=== PATIENT | female | born 1935 | race Caucasian/White ===

== ENCOUNTER 2017-04-28 10:07 | Inpatient (IN) | payer MEDICARE ==
[2017-04-28] MEDS ORDERED: SODIUM CHLORIDE 0.9% 1,000 ML IV STA ×3 (10:16→12:55)
[2017-04-28] MEDS ORDERED: SODIUM CHLORIDE 0.9% 500 ML IV STA (10:16)
--- NOTE | 2017-04-28 10:21 | ED ---
General Adult HPI - General Chief complaint: Abdominal Pain Stated complaint: altered mental Time Seen by Provider: 04/28/17 10:16 Source: patient, EMS, RN notes reviewed, old records reviewed Mode of arrival: EMS Limitations: altered mental status - History of Present Illness Initial comments: This is a 81-year-old female the ER for evaluation. Patient is a poor historian. History obtained from family. Patient's room by EMS and she also obtained from EMS. Patient was found down today. Week and not feeling well. Per EMS initially blood pressure was low and patient had decreased level of responsiveness. Patient this point is complaining of abdominal pain severe - Related Data Home Medications Medication Instructions Recorded Confirmed Aspirin 81 mg PO DAILY 04/28/17 04/28/17 Atorvastatin [Lipitor] 20 mg PO HS 04/28/17 04/28/17 Clopidogrel [Plavix] 75 mg PO DAILY 04/28/17 04/28/17 Lisinopril-Hctz 20-12.5 mg 1 tab PO DAILY 04/28/17 04/28/17 [Zestoretic 20-12.5] Metoprolol Tartrate [Lopressor] 50 mg PO BID 04/28/17 04/28/17 Multivitamins, Thera [Multivitamin 1 tab PO DAILY 04/28/17 04/28/17 (formulary)] Allergies Allergy/AdvReac Type Severity Reaction Status Date / Time Penicillins Allergy Rash/Hives Verified 04/28/17 11:06 Review of Systems ROS Statement: Those systems with pertinent positive or pertinent negative responses have been documented in the HPI. ROS Other: All systems not noted in ROS Statement are negative. Past Medical History Past Medical History: CVA/TIA, Hyperlipidemia, Hypertension Additional Past Medical History / Comment(s): bowle obstruction History of Any Multi-Drug Resistant Organisms: MRSA Date of last positivie culture/infection: unable to recall MDRO Source:: right leg Past Surgical History: Adenoidectomy, Appendectomy, Cholecystectomy, Heart Catheterization With Stent, Hysterectomy, Joint Replacement, Tonsillectomy Additional Past Surgical History / Comment(s): bilateral knees Past Psychological History: No Psychological Hx Reported Smoking Status: Never smoker Past Alcohol Use History: Rare Past Drug Use History: None Reported General Exam Limitations: altered mental status General appearance: alert, in no apparent distress, anxious, in distress Head exam: Present: atraumatic, normocephalic, normal inspection Eye exam: Present: normal appearance, PERRL, EOMI. Absent: scleral icterus, conjunctival injection, periorbital swelling ENT exam: Present: normal exam, mucous membranes moist Neck exam: Present: normal inspection. Absent: tenderness, meningismus, lymphadenopathy Respiratory exam: Present: normal lung sounds bilaterally. Absent: respiratory distress, wheezes, rales, rhonchi, stridor Cardiovascular Exam: Present: regular rate, normal rhythm, normal heart sounds. Absent: systolic murmur, diastolic murmur, rubs, gallop, clicks GI/Abdominal exam: Present: distended, tenderness, guarding, normal bowel sounds. Absent: rebound, rigid Extremities exam: Present: normal inspection, full ROM, normal capillary refill. Absent: tenderness, pedal edema, joint swelling, calf tenderness Back exam: Present: normal inspection Neurological exam: Present: alert, oriented X3, CN II-XII intact Psychiatric exam: Present: normal affect, normal mood Skin exam: Present: warm, dry, intact, normal color. Absent: rash Course Vital Signs 04/28/17 04/28/17 04/28/17 10:12 11:07 12:27 Temperature 97.0 F L 98.2 F Pulse Rate 96 92 98 Respiratory 18 15 16 Rate Blood Pressure 130/71 157/63 94/64 O2 Sat by Pulse 99 96 97 Oximetry EKG Findings - EKG Comments: EKG Findings:: EKG shows normal sinus rhythm rate of 91, FL 150, QRS 76, QTc 442 Medical Decision Making - Medical Decision Making Anyone female in the ER severe weakness severe pain, severe dissension likely small bowel obstruction and colitis. Patient be admitted for surgical evaluation and treatment, and by mouth IV hydration, IV antibiotics secondary to severe dehydration possible septic picture - Lab Data Result diagrams: 04/28/17 10:38 04/28/17 10:38 Lab Results 04/28/17 04/28/17 04/28/17 Range/Units 10:26 10:38 10:38 WBC 31.3 H* (3.8-10.6) k/uL RBC 5.52 H (3.80-5.40) m/uL Hgb 17.0 H (11.4-16.0) gm/dL Hct 52.1 H (34.0-46.0) % MCV 94.4 (80.0-100.0) fL MCH 30.7 (25.0-35.0) pg MCHC 32.5 (31.0-37.0) g/dL RDW 13.7 (11.5-15.5) % Plt Count 354 (150-450) k/uL Neutrophils % (Manual) 60 % Band Neutrophils % 29 % Lymphocytes % (Manual) 6 % Monocytes % (Manual) 3 % Metamyelocytes % 4 % Myelocytes % 1 % Neutrophils # (Manual) 27.80 H (1.3-7.7) k/uL Lymphocytes # (Manual) 1.88 (1.0-4.8) k/uL Monocytes # (Manual) 0.94 (0-1.0) k/uL Metamyelocytes # (Man) 1.25 H (0) k/uL Myelocytes # (Manual) 0.31 H (0) k/uL Nucleated RBCs 0 (0-0) /100 WBC Manual Slide Review Performed Toxic Granulation Present Poikilocytosis (manual Present PT 17.6 H (9.0-12.0) sec INR 1.8 H (<1.2) APTT 35.8 H (22.0-30.0) sec Sodium (137-145) mmol/L Potassium (3.5-5.1) mmol/L Chloride (98-107) mmol/L Carbon Dioxide (22-30) mmol/L Anion Gap mmol/L BUN (7-17) mg/dL Creatinine (0.52-1.04) mg/dL Est GFR (MDRD) Af Amer (>60 ml/min/1.73 sqM) Est GFR (MDRD) Non-Af (>60 ml/min/1.73 sqM) Glucose (74-99) mg/dL POC Glucose (mg/dL) 124 H (75-99) mg/dL POC Glu Refurbish Technician ID McDaid, Aleyda Plasma Lactic Acid Davi (0.7-2.0) mmol/L Calcium (8.4-10.2) mg/dL Phosphorus (2.5-4.5) mg/dL Magnesium (1.6-2.3) mg/dL Total Bilirubin (0.2-1.3) mg/dL AST (14-36) U/L ALT (9-52) U/L Alkaline Phosphatase (38-126) U/L Total Creatine Kinase (30-135) U/L CK-MB (CK-2) (0.0-2.4) ng/mL CK-MB (CK-2) Rel Index Troponin I (0.000-0.034) ng/mL Total Protein (6.3-8.2) g/dL Albumin (3.5-5.0) g/dL TSH (0.465-4.680) mIU/L Urine Color Urine Appearance (Clear) Urine pH (5.0-8.0) Ur Specific [place] (1.001-1.035) Urine Protein (Negative) Urine Glucose (UA) (Negative) Urine Ketones (Negative) Urine Blood (Negative) Urine Nitrite (Negative) Urine Bilirubin (Negative) Urine Urobilinogen (<2.0) mg/dL Ur Leukocyte Esterase (Negative) Urine RBC (0-5) /hpf Urine WBC (0-5) /hpf Ur Squamous Epith Cells (0-4) /hpf 04/28/17 04/28/17 04/28/17 Range/Units 10:38 10:38 10:38 WBC (3.8-10.6) k/uL RBC (3.80-5.40) m/uL Hgb (11.4-16.0) gm/dL Hct (34.0-46.0) % MCV (80.0-100.0) fL MCH (25.0-35.0) pg MCHC (31.0-37.0) g/dL RDW (11.5-15.5) % Plt Count (150-450) k/uL Neutrophils % (Manual) % Band Neutrophils % % Lymphocytes % (Manual) % Monocytes % (Manual) % Metamyelocytes % % Myelocytes % % Neutrophils # (Manual) (1.3-7.7) k/uL Lymphocytes # (Manual) (1.0-4.8) k/uL Monocytes # (Manual) (0-1.0) k/uL Metamyelocytes # (Man) (0) k/uL Myelocytes # (Manual) (0) k/uL Nucleated RBCs (0-0) /100 WBC Manual Slide Review Toxic Granulation Poikilocytosis (manual PT (9.0-12.0) sec INR (<1.2) APTT (22.0-30.0) sec Sodium 138 (137-145) mmol/L Potassium 3.7 (3.5-5.1) mmol/L Chloride 108 H (98-107) mmol/L Carbon Dioxide 16 L (22-30) mmol/L Anion Gap 14 mmol/L BUN 35 H (7-17) mg/dL Creatinine 2.67 H (0.52-1.04) mg/dL Est GFR (MDRD) Af Amer 21 (>60 ml/min/1.73 sqM) Est GFR (MDRD) Non-Af 17 (>60 ml/min/1.73 sqM) Glucose 106 H (74-99) mg/dL POC Glucose (mg/dL) (75-99) mg/dL POC Glu Refurbish Technician ID Plasma Lactic Acid Davi 8.7 H* (0.7-2.0) mmol/L Calcium 8.1 L (8.4-10.2) mg/dL Phosphorus 4.8 H (2.5-4.5) mg/dL Magnesium 2.1 (1.6-2.3) mg/dL Total Bilirubin 0.5 (0.2-1.3) mg/dL AST 28 (14-36) U/L ALT 28 (9-52) U/L Alkaline Phosphatase 59 (38-126) U/L Total Creatine Kinase 94 (30-135) U/L CK-MB (CK-2) 5.1 H* (0.0-2.4) ng/mL CK-MB (CK-2) Rel Index 5.4 Troponin I 0.201 H* (0.000-0.034) ng/mL Total Protein 4.5 L (6.3-8.2) g/dL Albumin 2.5 L (3.5-5.0) g/dL TSH 8.280 H (0.465-4.680) mIU/L Urine Color Urine Appearance (Clear) Urine pH (5.0-8.0) Ur Specific [place] (1.001-1.035) Urine Protein (Negative) Urine Glucose (UA) (Negative) Urine Ketones (Negative) Urine Blood (Negative) Urine Nitrite (Negative) Urine Bilirubin (Negative) Urine Urobilinogen (<2.0) mg/dL Ur Leukocyte Esterase (Negative) Urine RBC (0-5) /hpf Urine WBC (0-5) /hpf Ur Squamous Epith Cells (0-4) /hpf 04/28/17 Range/Units 10:40 WBC (3.8-10.6) k/uL RBC (3.80-5.40) m/uL Hgb (11.4-16.0) gm/dL Hct (34.0-46.0) % MCV (80.0-100.0) fL MCH (25.0-35.0) pg MCHC (31.0-37.0) g/dL RDW (11.5-15.5) % Plt Count (150-450) k/uL Neutrophils % (Manual) % Band Neutrophils % % Lymphocytes % (Manual) % Monocytes % (Manual) % Metamyelocytes % % Myelocytes % % Neutrophils # (Manual) (1.3-7.7) k/uL Lymphocytes # (Manual) (1.0-4.8) k/uL Monocytes # (Manual) (0-1.0) k/uL Metamyelocytes # (Man) (0) k/uL Myelocytes # (Manual) (0) k/uL Nucleated RBCs (0-0) /100 WBC Manual Slide Review Toxic Granulation Poikilocytosis (manual PT (9.0-12.0) sec INR (<1.2) APTT (22.0-30.0) sec Sodium (137-145) mmol/L Potassium (3.5-5.1) mmol/L Chloride (98-107) mmol/L Carbon Dioxide (22-30) mmol/L Anion Gap mmol/L BUN (7-17) mg/dL Creatinine (0.52-1.04) mg/dL Est GFR (MDRD) Af Amer (>60 ml/min/1.73 sqM) Est GFR (MDRD) Non-Af (>60 ml/min/1.73 sqM) Glucose (74-99) mg/dL POC Glucose (mg/dL) (75-99) mg/dL POC Glu Refurbish Technician ID Plasma Lactic Acid Davi (0.7-2.0) mmol/L Calcium (8.4-10.2) mg/dL Phosphorus (2.5-4.5) mg/dL Magnesium (1.6-2.3) mg/dL Total Bilirubin (0.2-1.3) mg/dL AST (14-36) U/L ALT (9-52) U/L Alkaline Phosphatase (38-126) U/L Total Creatine Kinase (30-135) U/L CK-MB (CK-2) (0.0-2.4) ng/mL CK-MB (CK-2) Rel Index Troponin I (0.000-0.034) ng/mL Total Protein (6.3-8.2) g/dL Albumin (3.5-5.0) g/dL TSH (0.465-4.680) mIU/L Urine Color Yellow Urine Appearance Clear (Clear) Urine pH 6.0 (5.0-8.0) Ur Specific [place] 1.013 (1.001-1.035) Urine Protein 1+ H (Negative) Urine Glucose (UA) Negative (Negative) Urine Ketones Negative (Negative) Urine Blood Negative (Negative) Urine Nitrite Negative (Negative) Urine Bilirubin Negative (Negative) Urine Urobilinogen <2.0 (<2.0) mg/dL Ur Leukocyte Esterase Negative (Negative) Urine RBC 1 (0-5) /hpf Urine WBC <1 (0-5) /hpf Ur Squamous Epith Cells 1 (0-4) /hpf - Radiology Data Radiology results: report reviewed (CT pelvis shows likely colitis small bowel obstruction), image reviewed Disposition Clinical Impression: Abdominal pain, Constipation, Colitis, SBO (small bowel obstruction), SIRS ( systemic inflammatory response syndrome) Disposition: ADMITTED IP TO THIS [facility] Condition: Critical Referrals: Adair Key MD [Primary Care Provider] - 1-2 days
[2017-04-28 10:27] LABS: Glucose,Whole Blood 124 mg/dL (75-99)
[2017-04-28 10:53] LABS: Appearance,Urine Clear (Clear); Bilirubin,Urine Negative (Negative); Glucose,Urine (UA) Negative (Negative); Ketones,Urine Negative (Negative); Leukocyte Esterase,Urine Negative (Negative); Nitrite,Urine Negative (Negative); Particle Count 2589; Protein,Urine 1+ (Negative); RBC,Urine 1 /hpf (0-5); Specific Gravity,Urine 1.013 (1.001-1.035); Squamous Epithelial Cell,Urine 1 /hpf (0-4); UA Billing (MACRO vs. MICRO) MICRO; Urobilinogen,Urine <2.0 mg/dL (<2.0); WBC,Urine <1 /hpf (0-5)
[2017-04-28 11:05] LABS: CH 29.9; CHCM 31.8; HCT 52.1 % (34.0-46.0); HDW 2.47; Immature Gran Flag Marked; MCH 30.7 pg (25.0-35.0); MCHC 32.5 g/dL (31.0-37.0); MCV 94.4 fL (80.0-100.0); Mean Platelet Volume 7.3; RBC 5.52 m/uL (3.80-5.40); RDW 13.7 % (11.5-15.5)
[2017-04-28] MEDS ORDERED: DICYCLOMINE 10 MG/ML 2 ML AMP IM STA (11:10)
[2017-04-28] MEDS ORDERED: MORPHINE SULFATE 4 MG/ML SYRINGE IVP STA ×2 (11:10→12:55)
[2017-04-28 11:12] LABS: WBC 31.3 k/uL (3.8-10.6)
[2017-04-28 11:13] LABS: INR 1.8 (<1.2); Partial Thromboplastin Time 35.8 sec (22.0-30.0); Prothrombin Time 17.6 sec (9.0-12.0)
[2017-04-28] MEDS ORDERED: RX INFO: IV CONTRAST WAS GIVEN 1 EACH MISC MISCELLANE PRN (11:13)
[2017-04-28 11:17] LABS: Calcium 8.1 mg/dL (8.4-10.2); Magnesium 2.1 mg/dL (1.6-2.3); Phosphorous 4.8 mg/dL (2.5-4.5); Potassium 3.7 mmol/L (3.5-5.1); Total Bilirubin 0.5 mg/dL (0.2-1.3); Total Protein 4.5 g/dL (6.3-8.2)
[2017-04-28 11:36] LABS: Add Differential Manual Differential
[2017-04-28 11:39] LABS: Band Neutrophils % 29 %; Manual Review Performed; Metamyelocytes % 4 %; Myelocytes % 1 %; Nucleated Red Blood Cells 0 /100 WBC (0-0); Total Cells Counted 200
[2017-04-28 11:40] LABS: Toxic Granulation Present
[2017-04-28 11:58] LABS: Creatine Kinase MB 5.1 ng/mL (0.0-2.4); Troponin I 0.201 ng/mL (0.000-0.034)
--- NOTE | 2017-04-28 12:53 | CT ---
EXAMINATION TYPE: CT abdomen pelvis wo con DATE OF EXAM: 04/28/2017 HISTORY: impacted CT DLP: 881 mGycm. Automated Exposure Control for Dose Reduction was Utilized. TECHNIQUE: CT scan of the abdomen and pelvis is performed without oral or IV contrast. COMPARISON: CT chest abdomen and pelvis May 13, 2008 FINDINGS: Within the limitations of a non-contrast study, the following observations are made. LUNG BASES: Dependent atelectasis is seen in both lung bases. There is tiny right-sided pleural effus ion. There is coronary artery calcification and/or coronary stent in the RCA noted. LIVER/GB: A few subcentimeter low dense lesions scattered throughout the upper liver are too small to further characterize per presumed benign. Gallbladder is not seen with certainty and may be surgical ly absent. PANCREAS: Pancreatic duct is redemonstrated in the mid body but not suspiciously dilated. SPLEEN: No significant abnormality is seen. ADRENALS: No significant abnormality is seen. KIDNEYS: No renal stones or hydronephrosis is evident. BOWEL: Evaluation of bowel is suboptimal secondary to lack of enteric contrast as well as patient hav ing very little intra-abdominal fat. Small hiatal hernia with air-fluid level is present. There is fl uid-filled distended stomach. Duodenal sweep is not well-visualized. There are dilated fluid-filled small bowel loops throughout the abdomen with several air-fluid levels present. Working backwards there is nondistended distal sigmoid and rectal colon. There is prominence of fecal material with diverticula in the proximal to mid sigmoid colon. There is moderate to severe wall thi ckening with scattered diverticula in the left colon. Surrounding ill-defined fluid and fat stranding is present. There is prominence of fecal material in the transverse colon without suspicious wall thickening. Cec um is not well visualized but felt wandering into the anterior upper pelvis seen best on axial image 77. Terminal ileum is not definitively visualized. There is redundant transverse colon noted. Small bowel loops in the right lower quadrant are fluid-filled and prominent but not suspiciously dil ated. There is abnormal small bowel loops in the upper quadrant with abnormal wall thickening near po rta hepatis. GENITAL ORGANS: Uterus is not visualized and may be surgically absent or markedly atrophic in appeara nce. LYMPH NODES: No greater than 1cm abdominal or pelvic lymph nodes are appreciated. OSSEOUS STRUCTURES: There is prominent multilevel spurring in visualized thoracic spine. There is fac et arthropathy in lower lumbar levels. OTHER: There is severe calcified plaque of aorta extending into branch vessels. Suspect remnant 3.2 c m low dense lesion in right ovary on axial image 72. This is larger in size versus prior study axial image 108. There is small amount of fluid surrounding the liver along the anterior and lateral aspect. There is small amount of fluid in the left paracolic gutter. IMPRESSION: 1. Suboptimal study. There is definite moderate to severe colitis involving the left colon. There is definite enteritis involving small bowel loops in the right upper to mid abdomen. Differential includ es infectious, inflammatory, and ischemic etiologies. A partial or developing mid to distal small bow el obstruction cannot be excluded. Distended stomach is noted, advise NG tube placement. Fairly moder ate diffuse colonic fecal stasis noted. Wandering cecum suspected. 2. A 3.2 cm right adnexal or ovarian cystic lesion is abnormal finding in postmenopausal female, none mergent pelvic ultrasound follow-up is advised to further evaluate and characterize.
[2017-04-28] MEDS ORDERED: ONDANSETRON 4 MG/2 ML VIAL IVP STA (12:55)
[2017-04-28] MEDS ORDERED: ONDANSETRON 4 MG/2 ML VIAL IVP PRN (12:55)
[2017-04-28] MEDS ORDERED: metroNIDAZOLE-NS PMX 500 MG in SALINE 1 100ML.BAG IVPB STA (12:56)
[2017-04-28] MEDS ORDERED: LEVOFLOXACIN 750MG-D5W PMX 750 MG in DEXTROSE/WATER 1 150ML.BAG IVPB STA (12:56)
[2017-04-28] MEDS ORDERED: NALOXONE 0.4 MG/ML 1 ML VIAL IV PRN (12:58)
[2017-04-28] MEDS ORDERED: PHYTONADIONE 5 MG in SODIUM CHLORIDE 0.9% 50 ML IVPB STA (14:00)
--- NOTE | 2017-04-28 15:58 | P.CNPUL ---
History of Present Illness Consult date: 04/28/17 Requesting physician: Archana White Reason for consult: other (Critical care management) Chief complaint: Abdominal pain, altered mental status History of present illness: This is a very pleasant 81-year-old female patient who follows with Dr. Ministerio Key as her primary care physician. 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 He presented to the emergency room this morning after her found her quite weak and lethargic and confused. He states yesterday she appeared fine however he had to leave the house for several hours and upon his return at 7:30 PM she was already in bed. He asked if she was okay she stated she just wanted to rest. He did feel she had not been eating and drinking much the last several days. Early this morning she became quite confused and lethargic, complaining of severe abdominal discomfort and EMS was called. Her initial labs reveal a white count of 31.3, hemoglobin 17.0, neutrophils 27.8, metamyelocytes 1.25, myelocytes 0.31. Her INR was 1.8. BUN 35 with a creatinine of 2.67. Her lactic acid is 8.7. Troponin 0.201. A computed tomography scan of the abdomen and pelvis revealed moderate to severe colitis involving the left colon. There is enteritis involving small bowel loops in the right upper to mid abdomen. Infectious, inflammatory and ischemic etiologies are within the differential. There is a partial or developing mid to distal small bowel obstruction. Her stomach is distended. There is a fair amount of colonic fecal stasis noted as well. Wondering cecum expected. She has been a initiated on Levaquin and metronidazole. 3 L of 0.9 normal saline have been infused. She currently has a 0.9 normal saline at 100 MLS. She is seen today in the emergency room. She is awake. She is slow to respond. A poor historian. She is maintaining O2 saturations in the upper 90s on 2 L/m per nasal cannula. She is currently afebrile. Hemodynamically stable with improved blood pressure post fluid resuscitation. Review of Systems ROS unobtainable: due to mental status Past Medical History Past Medical History: Coronary Artery Disease (CAD) (Previous stent placement 3.), CVA/TIA, Hyperlipidemia, Hypertension History of Any Multi-Drug Resistant Organisms: MRSA Date of last positivie culture/infection: unable to recall MDRO Source:: right leg Past Surgical History: Adenoidectomy, Appendectomy, Cholecystectomy, Heart Catheterization With Stent, Hysterectomy, Joint Replacement, Tonsillectomy Additional Past Surgical History / Comment(s): bilateral knees Past Psychological History: No Psychological Hx Reported Smoking Status: Never smoker Past Alcohol Use History: Rare Past Drug Use History: None Reported Medications and Allergies Home Medications Medication Instructions Recorded Confirmed Type Aspirin 81 mg PO DAILY 04/28/17 04/28/17 History Atorvastatin [Lipitor] 20 mg PO HS 04/28/17 04/28/17 History Clopidogrel [Plavix] 75 mg PO DAILY 04/28/17 04/28/17 History Lisinopril-Hctz 20-12.5 mg 1 tab PO DAILY 04/28/17 04/28/17 History [Zestoretic 20-12.5] Metoprolol Tartrate [Lopressor] 50 mg PO BID 04/28/17 04/28/17 History Multivitamins, Thera [Multivitamin 1 tab PO DAILY 04/28/17 04/28/17 History (formulary)] Allergies Allergy/AdvReac Type Severity Reaction Status Date / Time Penicillins Allergy Rash/Hives Verified 04/28/17 11:06 Physical Exam Vitals: Vital Signs Temp Pulse Resp BP Pulse Ox 04/28/17 14:49 105/51 04/28/17 14:27 106 H 86/47 94 L 04/28/17 14:00 85/50 04/28/17 12:58 98.2 F 100 20 98/62 94 L 04/28/17 12:27 98 16 94/64 97 04/28/17 11:07 98.2 F 92 15 157/63 96 04/28/17 10:12 97.0 F L 96 18 130/71 99 Intake and Output 04/28/17 04/28/17 04/28/17 06:59 14:59 22:59 Other: Weight 49.895 kg Patient Weight 04/29/17 06:59 Weight 49.895 kg GENERAL EXAM: Lethargic, profoundly weak. Altered mental status. HEAD: Normocephalic. EYES: Normal reaction of pupils, equal size. NOSE: Clear with pink turbinates. THROAT: No erythema or exudates. NECK: No masses, no JVD. CHEST: No chest wall deformity. LUNGS: Equal air entry with no crackles, wheeze, rhonchi or dullness. CVS: S1 and S2 normal with no audible murmurs, regular rhythm. ABDOMEN: Slightly distended, tender to palpation, hyperactive bowel sounds. Extremities: There is no peripheral edema. No clubbing, no cyanosis. Peripheral pulses are intact. Results - Laboratory Findings CBC and BMP: 04/28/17 10:38 04/28/17 10:38 PT/INR, D-dimer PT 17.6 sec (9.0-12.0) H 04/28/17 10:38 INR 1.8 (<1.2) H 04/28/17 10:38 Abnormal lab findings: Abnormal Labs 04/28/17 04/28/17 04/28/17 10:26 10:38 10:38 WBC 31.3 H* RBC 5.52 H Hgb 17.0 H Hct 52.1 H Neutrophils # (Manual) 27.80 H Metamyelocytes # (Man) 1.25 H Myelocytes # (Manual) 0.31 H PT 17.6 H INR 1.8 H APTT 35.8 H Chloride Carbon Dioxide BUN Creatinine Glucose POC Glucose (mg/dL) 124 H Plasma Lactic Acid Davi Calcium Phosphorus CK-MB (CK-2) Troponin I Total Protein Albumin TSH Urine Protein 04/28/17 04/28/17 04/28/17 10:38 10:38 10:38 WBC RBC Hgb Hct Neutrophils # (Manual) Metamyelocytes # (Man) Myelocytes # (Manual) PT INR APTT Chloride 108 H Carbon Dioxide 16 L BUN 35 H Creatinine 2.67 H Glucose 106 H POC Glucose (mg/dL) Plasma Lactic Acid Davi 8.7 H* Calcium 8.1 L Phosphorus 4.8 H CK-MB (CK-2) 5.1 H* Troponin I 0.201 H* Total Protein 4.5 L Albumin 2.5 L TSH 8.280 H Urine Protein 04/28/17 10:40 WBC RBC Hgb Hct Neutrophils # (Manual) Metamyelocytes # (Man) Myelocytes # (Manual) PT INR APTT Chloride Carbon Dioxide BUN Creatinine Glucose POC Glucose (mg/dL) Plasma Lactic Acid Davi Calcium Phosphorus CK-MB (CK-2) Troponin I Total Protein Albumin TSH Urine Protein 1+ H Assessment and Plan Plan: Impression: #1 Severe sepsis secondary to moderate to severe colitis involving the left colon along with enteritis involving the small bowels in the right upper to mid abdomen. #2 Septic shock with hypotension secondary to above, slightly improved with fluid resuscitation. Currently not on pressors. #3 Partial or developing mid to distal small bowel obstruction with distended stomach and diffuse colonic fecal stasis. #4 Leukocytosis with bandemia secondary to above. #5 Lactic acidosis secondary to above. #6 Acute renal failure secondary to sepsis, hypotension and dehydration. #7 Coagulopathy secondary to sepsis, INR 1.8. #8 Troponin leak. #9 History of hypertension. #10 Hyperlipidemia. #11 Coronary artery disease status post coronary stent placement 3. Currently on Plavix and aspirin. #12 History of CVA/TIA. Plan: The patient was seen and evaluated by Dr. Trent. We will plan to transfer the patient to the intensive care unit. We'll continue with fluid resuscitation. She may need pressors. Continue with antibiotics. Obtain blood cultures. We' ll await further recommendations per surgical services. May need to reverse the coagulopathy if surgery as planned. Nasogastric tube is in place. We'll obtain a chest x-ray as noted atelectasis and small right pleural effusion in the bases of the abdominal CT. She is on Lovenox for DVT prophylaxis and Protonix for GI prophylaxis. Her overall prognosis is guarded. We'll continue to monitor her closely in the intensive care unit and make further recommendations based on her clinical status. Critical care time not including procedures 42 minutes. Time with Patient: Greater than 30
[2017-04-28] MEDS ORDERED: AMPICILLIN-SULBACTAM 3 GM in SODIUM CHLORIDE 0.9% 100 ML IVPB SCH (16:00)
--- NOTE | 2017-04-28 16:48 | P.HPIM ---
History of Present Illness H&P Date: 04/28/17 Chief Complaint: Abdominal pain and distention This is a pleasant 81-year-old female patient of Dr. Ministerio Key. She has a history of hypertension and CAD with prior stent placement, previous TIA less than 10 years ago, follows with Dr. Fazal Sepulveda cardiology, and was stable on his last visit 04/06/2017 without any evidence of CHF or valvular heart disease or unstable angina according to the . Patient has been evaluated in the emergency room after the found her to be weak and moaning and groaning and increasing;y confused, patient did not complain anything significant prior to this however on further inquiry, patient has had increasing abdominal pain and abdominal distention, anorexia diminished appetite nausea and vomiting without any fever, last bowel movement was 1 week prior to admission. 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 Patient does not have any baseline colonoscopy In the emergency room patient was seen and was noted to have a CAT scan of the abdomen and pelvis showing moderate severe colitis involving the left colon enteritis involving small bowel loops in the right upper to mid abdomen a partial or developing mid to distal small bowel obstruction cannot be ruled out , distended stomach is noted there is moderate diffuse colonic fecal stasis, wondering cecum suspected. At 3.2 cm ovarian cyst right side which needs to be worked up as an outpatient. There is moderate to severe wall thickening with scattered diverticula in the left colon surrounding ill-defined fluid and fat stranding present. Severe calcified plaque of the aorta extending into branch vessels small fluid noted in the left paracolic gutter and surrounding the liver anteriorly Laterally. Patient was septic on ER and 3 with a wbc of 31,000, INR 1.8, creatinine of 2.7 , lactic acid of 8.7 TSH is elevated at 8, troponin elevated at 0.2 urinalysis negative except for proteinuria Review of Systems Constitutional: Reports as per HPI, Reports anorexia, Reports chills, Reports fever, Reports poor appetite Ears, nose, mouth and throat: Reports as per HPI Cardiovascular: Reports as per HPI Respiratory: Reports as per HPI, Denies congestion, Denies cough, Denies cough with sputum, Denies dyspnea, Denies excessive sputum, Denies hemoptysis, Denies home oxygen, Denies pain, Denies pain on inspiration, Denies pleurisy, Denies respiratory infections, Denies sleep apnea, Denies snoring, Denies wheezing Gastrointestinal: Reports as per HPI, Reports change in bowel habits, Reports constipation, Reports early satiety, Reports nausea, Reports vomiting, Denies abdominal pain, Denies belching, Denies bloating, Denies BRBPR, Denies coffee ground emesis, Denies diarrhea, Denies dyspepsia, Denies excessive gas, Denies heartburn, Denies hematemesis, Denies hematochezia, Denies indigestion, Denies jaundice, Denies lactose intolerance, Denies loss of appetite, Denies melena Genitourinary: Reports as per HPI, Denies abnormal vaginal bleeding, Denies decreased libido, Denies difficulty conceiving, Denies difficulty voiding, Denies dysmenorrhea, Denies dyspareunia, Denies dysuria, Denies flank pain, Denies genital sores, Denies hematuria, Denies hot flashes, Denies incomplete emptying, Denies kidney stones, Denies menorrhagia, Denies mixed incontinence, Denies nocturia, Denies pelvic pain, Denies post void dribbling, Denies , Denies prolapse symptoms, Denies stress incontinence, Denies urge incontinence , Denies urgency, Denies urinary frequency, Denies vaginal discharge, Denies vaginal dryness, Denies vaginal itching, Denies vaginal odor Menstruation: Reports as per HPI, Reports postmenopausal Musculoskeletal: Reports as per HPI, Reports limitation of motion, Reports loss of height, Denies arm numbness/tingling, Denies atrophy, Denies fractures, Denies frequent falls, Denies gait dysfunction, Denies hot joints, Denies leg numbness/tingling, Denies low back pain, Denies morning stiffness, Denies muscle cramps, Denies muscle weakness, Denies myalgias, Denies neck pain, Denies neck stiffness, Denies prior amputations, Denies redness of joints, Denies shooting arm pain, Denies shooting leg pain Integumentary: Reports as per HPI, Denies acne, Denies boils, Denies brittle nails, Denies change in hair/nails, Denies color changes, Denies darkening of skin, Denies depigmentation, Denies dryness, Denies foot/leg ulcers, Denies growths, Denies hirsutism, Denies lesions, Denies onychomycosis, Denies pruritus , Denies rash, Denies sores, Denies striae, Denies unusual bruising, Denies wounds Neurological: Reports as per HPI, Reports confusion Psychiatric: Reports as per HPI Endocrine: Reports as per HPI Hematologic/Lymphatic: Reports as per HPI Allergic/Immunologic: Reports as per HPI Past Medical History Past Medical History: Coronary Artery Disease (CAD) (Previous stent placement 3.), CVA/TIA, Hyperlipidemia, Hypertension Additional Past Medical History / Comment(s): bowle obstruction History of Any Multi-Drug Resistant Organisms: MRSA Date of last positivie culture/infection: unable to recall MDRO Source:: right leg Past Surgical History: Adenoidectomy, Appendectomy, Cholecystectomy, Heart Catheterization With Stent, Hysterectomy, Joint Replacement, Tonsillectomy Additional Past Surgical History / Comment(s): bilateral knees Past Psychological History: No Psychological Hx Reported Smoking Status: Never smoker Past Alcohol Use History: Rare Past Drug Use History: None Reported - Past Family History Father History Unknown: Yes Family Medical History: Coronary Artery Disease (CAD) ( at 59) Mother History Unknown: Yes (94 old age) Family Medical History: No Reported History Brother(s) History Unknown: Yes Family Medical History: No Reported History Sister(s) History Unknown: Yes (heathy 1 sister) Daughter(s) History Unknown: Yes (3 daughter healthy) Family Medical History: No Reported History Son(s) Family Medical History: Coronary Artery Disease (CAD) Medications and Allergies Home Medications Medication Instructions Recorded Confirmed Type Aspirin 81 mg PO DAILY 04/28/17 04/28/17 History Atorvastatin [Lipitor] 20 mg PO HS 04/28/17 04/28/17 History Clopidogrel [Plavix] 75 mg PO DAILY 04/28/17 04/28/17 History Lisinopril-Hctz 20-12.5 mg 1 tab PO DAILY 04/28/17 04/28/17 History [Zestoretic 20-12.5] Metoprolol Tartrate [Lopressor] 50 mg PO BID 04/28/17 04/28/17 History Multivitamins, Thera [Multivitamin 1 tab PO DAILY 04/28/17 04/28/17 History (formulary)] Allergies Allergy/AdvReac Type Severity Reaction Status Date / Time Penicillins Allergy Rash/Hives Verified 04/28/17 11:06 Physical Exam Vitals: Vital Signs Temp Pulse Resp BP Pulse Ox 04/28/17 15:00 97.2 F L 99 20 116/67 97 04/28/17 14:49 105/51 04/28/17 14:27 106 H 86/47 94 L 04/28/17 14:00 85/50 04/28/17 12:58 98.2 F 100 20 98/62 94 L 04/28/17 12:27 98 16 94/64 97 04/28/17 11:07 98.2 F 92 15 157/63 96 04/28/17 10:12 97.0 F L 96 18 130/71 99 Intake and Output 04/28/17 04/28/17 04/28/17 06:59 14:59 22:59 Other: Weight 49.895 kg Patient Weight 04/29/17 06:59 Weight 49.895 kg - Constitutional General appearance: cooperative, mild distress, no acute distress - EENT Eyes: anicteric sclerae, EOMI, PERRLA ENT: NA/AT, normal oropharynx - Neck Neck: normal ROM - Respiratory Respiratory: bilateral: CTA, diminished, negative: dullness, rales, rhonchi, wheezing, prolonged expiration - Cardiovascular Rhythm: regular Heart sounds: normal: S1, S2 Abnormal Heart Sounds: no systolic murmur, no diastolic murmur, no rub, no S3 Gallop, no S4 Gallop, no click, no other - Gastrointestinal General gastrointestinal: decreased bowel sounds, soft - Integumentary Integumentary: decreased turgor, normal - Neurologic Neurologic: CNII-XII intact - Musculoskeletal Musculoskeletal: generalized weakness - Psychiatric Psychiatric: A&O x's 3 (2), appropriate affect Results CBC & Chem 7: 04/28/17 10:38 04/28/17 10:38 Labs: Abnormal Lab Results - Last 24 Hours (Table) 04/28/17 04/28/17 04/28/17 Range/Units 10:26 10:38 10:38 WBC 31.3 H* (3.8-10.6) k/uL RBC 5.52 H (3.80-5.40) m/uL Hgb 17.0 H (11.4-16.0) gm/dL Hct 52.1 H (34.0-46.0) % Neutrophils # (Manual) 27.80 H (1.3-7.7) k/uL Metamyelocytes # (Man) 1.25 H (0) k/uL Myelocytes # (Manual) 0.31 H (0) k/uL PT 17.6 H (9.0-12.0) sec INR 1.8 H (<1.2) APTT 35.8 H (22.0-30.0) sec Chloride (98-107) mmol/L Carbon Dioxide (22-30) mmol/L BUN (7-17) mg/dL Creatinine (0.52-1.04) mg/dL Glucose (74-99) mg/dL POC Glucose (mg/dL) 124 H (75-99) mg/dL Plasma Lactic Acid Davi (0.7-2.0) mmol/L Calcium (8.4-10.2) mg/dL Phosphorus (2.5-4.5) mg/dL CK-MB (CK-2) (0.0-2.4) ng/mL Troponin I (0.000-0.034) ng/mL Total Protein (6.3-8.2) g/dL Albumin (3.5-5.0) g/dL TSH (0.465-4.680) mIU/L Urine Protein (Negative) 04/28/17 04/28/17 04/28/17 Range/Units 10:38 10:38 10:38 WBC (3.8-10.6) k/uL RBC (3.80-5.40) m/uL Hgb (11.4-16.0) gm/dL Hct (34.0-46.0) % Neutrophils # (Manual) (1.3-7.7) k/uL Metamyelocytes # (Man) (0) k/uL Myelocytes # (Manual) (0) k/uL PT (9.0-12.0) sec INR (<1.2) APTT (22.0-30.0) sec Chloride 108 H (98-107) mmol/L Carbon Dioxide 16 L (22-30) mmol/L BUN 35 H (7-17) mg/dL Creatinine 2.67 H (0.52-1.04) mg/dL Glucose 106 H (74-99) mg/dL POC Glucose (mg/dL) (75-99) mg/dL Plasma Lactic Acid Davi 8.7 H* (0.7-2.0) mmol/L Calcium 8.1 L (8.4-10.2) mg/dL Phosphorus 4.8 H (2.5-4.5) mg/dL CK-MB (CK-2) 5.1 H* (0.0-2.4) ng/mL Troponin I 0.201 H* (0.000-0.034) ng/mL Total Protein 4.5 L (6.3-8.2) g/dL Albumin 2.5 L (3.5-5.0) g/dL TSH 8.280 H (0.465-4.680) mIU/L Urine Protein (Negative) 04/28/17 04/28/17 Range/Units 10:40 14:56 WBC (3.8-10.6) k/uL RBC (3.80-5.40) m/uL Hgb (11.4-16.0) gm/dL Hct (34.0-46.0) % Neutrophils # (Manual) (1.3-7.7) k/uL Metamyelocytes # (Man) (0) k/uL Myelocytes # (Manual) (0) k/uL PT (9.0-12.0) sec INR (<1.2) APTT (22.0-30.0) sec Chloride (98-107) mmol/L Carbon Dioxide (22-30) mmol/L BUN (7-17) mg/dL Creatinine (0.52-1.04) mg/dL Glucose (74-99) mg/dL POC Glucose (mg/dL) (75-99) mg/dL Plasma Lactic Acid Davi 6.7 H* (0.7-2.0) mmol/L Calcium (8.4-10.2) mg/dL Phosphorus (2.5-4.5) mg/dL CK-MB (CK-2) (0.0-2.4) ng/mL Troponin I (0.000-0.034) ng/mL Total Protein (6.3-8.2) g/dL Albumin (3.5-5.0) g/dL TSH (0.465-4.680) mIU/L Urine Protein 1+ H (Negative) Microbiology - Last 24 Hours (Table) 04/28/17 10:40 Urine Culture - Preliminary Urine,Catheterized Laboratory Results WBC 31.3 k/uL (3.8-10.6) H* 04/28/17 10:38 RBC 5.52 m/uL (3.80-5.40) H 04/28/17 10:38 Hgb 17.0 gm/dL (11.4-16.0) H 04/28/17 10:38 Hct 52.1 % (34.0-46.0) H 04/28/17 10:38 MCV 94.4 fL (80.0-100.0) 04/28/17 10:38 MCH 30.7 pg (25.0-35.0) 04/28/17 10:38 MCHC 32.5 g/dL (31.0-37.0) 04/28/17 10:38 RDW 13.7 % (11.5-15.5) 04/28/17 10:38 Plt Count 354 k/uL (150-450) 04/28/17 10:38 Neutrophils % (Manual) 60 % 04/28/17 10:38 Band Neutrophils % 29 % 04/28/17 10:38 Lymphocytes % (Manual) 6 % 04/28/17 10:38 Monocytes % (Manual) 3 % 04/28/17 10:38 Metamyelocytes % 4 % 04/28/17 10:38 Myelocytes % 1 % 04/28/17 10:38 Neutrophils # (Manual) 27.80 k/uL (1.3-7.7) H 04/28/17 10:38 Lymphocytes # (Manual) 1.88 k/uL (1.0-4.8) 04/28/17 10:38 Monocytes # (Manual) 0.94 k/uL (0-1.0) 04/28/17 10:38 Metamyelocytes # (Man) 1.25 k/uL (0) H 04/28/17 10:38 Myelocytes # (Manual) 0.31 k/uL (0) H 04/28/17 10:38 Nucleated RBCs 0 /100 WBC (0-0) 04/28/17 10:38 Manual Slide Review Performed 04/28/17 10:38 Toxic Granulation Present 04/28/17 10:38 Poikilocytosis (manual Present 04/28/17 10:38 PT 17.6 sec (9.0-12.0) H 04/28/17 10:38 INR 1.8 (<1.2) H 04/28/17 10:38 APTT 35.8 sec (22.0-30.0) H 04/28/17 10:38 Sodium 138 mmol/L (137-145) 04/28/17 10:38 Potassium 3.7 mmol/L (3.5-5.1) 04/28/17 10:38 Chloride 108 mmol/L (98-107) H 04/28/17 10:38 Carbon Dioxide 16 mmol/L (22-30) L 04/28/17 10:38 Anion Gap 14 mmol/L 04/28/17 10:38 BUN 35 mg/dL (7-17) H 04/28/17 10:38 Creatinine 2.67 mg/dL (0.52-1.04) H 04/28/17 10:38 Est GFR (MDRD) Af Amer 21 (>60 ml/min/1.73 sqM) 04/28/17 10:38 Est GFR (MDRD) Non-Af 17 (>60 ml/min/1.73 sqM) 04/28/17 10:38 Glucose 106 mg/dL (74-99) H 04/28/17 10:38 POC Glucose (mg/dL) 124 mg/dL (75-99) H 04/28/17 10:26 POC Glu Director [employer] ID Aleyda Crenshaw 04/28/17 10:26 Lactic Ac Sepsis Rflx Y 04/28/17 11:30 Plasma Lactic Acid Davi 6.7 mmol/L (0.7-2.0) H* 04/28/17 14:56 Calcium 8.1 mg/dL (8.4-10.2) L 04/28/17 10:38 Phosphorus 4.8 mg/dL (2.5-4.5) H 04/28/17 10:38 Magnesium 2.1 mg/dL (1.6-2.3) 04/28/17 10:38 Total Bilirubin 0.5 mg/dL (0.2-1.3) 04/28/17 10:38 AST 28 U/L (14-36) 04/28/17 10:38 ALT 28 U/L (9-52) 04/28/17 10:38 Alkaline Phosphatase 59 U/L (38-126) 04/28/17 10:38 Total Creatine Kinase 94 U/L (30-135) 04/28/17 10:38 CK-MB (CK-2) 5.1 ng/mL (0.0-2.4) H* 04/28/17 10:38 CK-MB (CK-2) Rel Index 5.4 04/28/17 10:38 Troponin I 0.201 ng/mL (0.000-0.034) H* 04/28/17 10:38 Total Protein 4.5 g/dL (6.3-8.2) L 04/28/17 10:38 Albumin 2.5 g/dL (3.5-5.0) L 04/28/17 10:38 TSH 8.280 mIU/L (0.465-4.680) H 04/28/17 10:38 Urine Color Yellow 04/28/17 10:40 Urine Appearance Clear (Clear) 04/28/17 10:40 Urine pH 6.0 (5.0-8.0) 04/28/17 10:[address] [place] 1.013 (1.001-1.035) 04/28/17 10:40 Urine Protein 1+ (Negative) H 04/28/17 10:40 Urine Glucose (UA) Negative (Negative) 04/28/17 10:40 Urine Ketones Negative (Negative) 04/28/17 10:40 Urine Blood Negative (Negative) 04/28/17 10:40 Urine Nitrite Negative (Negative) 04/28/17 10:40 Urine Bilirubin Negative (Negative) 04/28/17 10:40 Urine Urobilinogen <2.0 mg/dL (<2.0) 04/28/17 10:40 Ur Leukocyte Esterase Negative (Negative) 04/28/17 10:40 Urine RBC 1 /hpf (0-5) 04/28/17 10:40 Urine WBC <1 /hpf (0-5) 04/28/17 10:40 Ur Squamous Epith Cells 1 /hpf (0-4) 04/28/17 10:40 Thrombosis Risk Factor Assmnt - DVT/VTE Prophylaxis DVT/VTE Prophylaxis: Pharmacologic Prophylaxis ordered - Choose All That Apply Each Factor Represents 1 point: Sepsis (< 1month) Each Risk Factor Represents 2 Points: Patient confined to bed Each Risk Factor Represents 3 Points: Age 75 years or older Thrombosis Risk Factor Assessment Total Risk Factor Score: 6 Thrombosis Risk Factor Assessment Level: High Risk Assessment and Plan Plan: Sepsis with SIRS secondary to significant colitis with fecal burden no evidence of peritonitis at this time, with a partial to early developing distal small bowel obstruction is suspected to CT, patient is dehydrated with acute kidney failure on ER presentation, patient is admitted to ICU with general consult to Dr. Butt general surgery, dynamiter Dr. Trent, and patient will be started on IV Flagyl and IV Levaquin. Patient has penicillin ALLERGY. Patient is made nothing by mouth, patient might need an NG tube. Patient will be closely monitored, and no plans for acute surgical intervention at this time should be a class III anesthesia risk should there be immediate surgery needed 2. Hemodynamic instability with hypotension, secondary to septic shock fluid boluses are currently being given, IV fluids and avoidance of any nephrotoxic agents, to the primary condition which is bowel resection IV antibiotics on board next lisinopril on hold secondary to hypotension thiazide on hold 3. Acute kidney failure, unknown baseline. Renal injury most likely secondary to ATN rather than interstitial nephritis, no recent antibiotics prior to this admission no recent NSAID use 4. Elevated troponin most likely secondary to sepsis, patient is on Plavix which is on hold secondary to possible surgical intervention over the next 48 hours. Cardiology consult, patient would have troponins BNP bio-markers followed closely 5. CAD with 3 cardiac stents follows with Dr. Fazal Sepulveda cardiology patient is on Plavix which is on hold until surgical emergency situationi s stabilized continue on Lopressor 50 mg twice a day with parameters 6. Hypothyroidism IV l-thyroxine 25 g daily, no previous thyroid supplementation prior to admission 7. Metabolic encephalopathy secondary to sepsis, 8. Coagulopathy secondary to sepsis or signs of cutaneous bleeding at this time , monitor for ongoing GI losses vitamin K given patient is not on any oral anticoagulants 9. Hyperlipidemia on Lipitor on hold currently nothing by mouth 10. Lactic acidosis secondary to sepsis 11. GI prophylaxis IV Protonix 12. DVT prophylaxis with Lovenox 13 Moderate protein malnutrition secondary to prolonged appetite change Prognosis guarded
--- NOTE | 2017-04-28 16:49 | XR ---
EXAMINATION TYPE: XR chest 1V portable DATE OF EXAM: 04/28/2017 CLINICAL HISTORY: Dyspnea. TECHNIQUE: Single AP portable upright view of the chest is obtained. COMPARISON: CT abdomen and pelvis from earlier today FINDINGS: There is new nasogastric tube projecting below left hemidiaphragm. There is patchy bibasil ar atelectasis and/or infiltrate. There is chronic parenchymal change. No large pleural effusion or p neumothorax is present. Cardiac silhouette size is within normal limits with atherosclerotic thoracic aorta. Osseous structures are demineralized. IMPRESSION: Chronic parenchymal change with patchy bibasilar atelectasis felt present.
[2017-04-28 17:49] LABS: CH 30.5; CHCM 33.1; HCT 46.3 % (34.0-46.0); HDW 2.56; HGB 15.3 gm/dL (11.4-16.0); MCH 30.6 pg (25.0-35.0); MCV 92.7 fL (80.0-100.0); Mean Platelet Volume 7.2; RBC 4.99 m/uL (3.80-5.40); RDW 13.9 % (11.5-15.5)
[2017-04-28 17:53] LABS: WBC 25.2 k/uL (3.8-10.6)
--- NOTE | 2017-04-28 18:02 | P.GSCN ---
History of Present Illness Consult date: 04/28/17 Reason for Consult: Abdominal pain, nausea and vomiting, lactic acidosis History of present illness: The patient's a 81-year-old female who was said she wasn't feeling very well this week. Yesterday she did eat small amounts but began developing pain, nausea and vomiting last night. He says she tends to get blocked up (see obstructed) with constipation. She has never been hospitalized for this in the past. He treats it with a laxative at home He hasn't been following this well this week as he has had some medical testing. Typically she has some constipation he doesn't know that she's never had blood in the stool or dark tarry stool. She's never had a colonoscopy in the past. She hadn't had fevers , chills, cough. Review of Systems ROS unobtainable: due to mental status (The patient will answer yes and no but does so slowly. Most with history is from the .) Past Medical History Past Medical History: Coronary Artery Disease (CAD) (Previous stent placement 3.), CVA/TIA, Hyperlipidemia, Hypertension History of Any Multi-Drug Resistant Organisms: MRSA Year Discovered:: unable to recall MDRO Source:: right leg Past Surgical History: Adenoidectomy, Appendectomy, Cholecystectomy, Heart Catheterization With Stent, Hysterectomy, Joint Replacement, Tonsillectomy Additional Past Surgical History / Comment(s): bilateral knees Past Psychological History: No Psychological Hx Reported Smoking Status: Never smoker Past Alcohol Use History: Rare Past Drug Use History: None Reported - Past Family History Father History Unknown: Yes Family Medical History: Coronary Artery Disease (CAD) ( at 59) Mother History Unknown: Yes (94 old age) Family Medical History: No Reported History Brother(s) History Unknown: Yes Family Medical History: No Reported History Sister(s) History Unknown: Yes (heathy 1 sister) Daughter(s) History Unknown: Yes (3 daughter healthy) Family Medical History: No Reported History Son(s) Family Medical History: Coronary Artery Disease (CAD) Medications and Allergies Home Medications Medication Instructions Recorded Confirmed Type Aspirin 81 mg PO DAILY 04/28/17 04/28/17 History Atorvastatin [Lipitor] 20 mg PO HS 04/28/17 04/28/17 History Clopidogrel [Plavix] 75 mg PO DAILY 04/28/17 04/28/17 History Lisinopril-Hctz 20-12.5 mg 1 tab PO DAILY 04/28/17 04/28/17 History [Zestoretic 20-12.5] Metoprolol Tartrate [Lopressor] 50 mg PO BID 04/28/17 04/28/17 History Multivitamins, Thera [Multivitamin 1 tab PO DAILY 04/28/17 04/28/17 History (formulary)] Allergies Allergy/AdvReac Type Severity Reaction Status Date / Time Penicillins Allergy Rash/Hives Verified 04/28/17 11:06 Surgical - Exam Osteopathic Statement: *. No significant issues noted on an osteopathic structural exam other than those noted in the History and Physical/Consult. Vital Signs Temp Pulse Resp BP Pulse Ox 97.0 F L 96 18 130/71 99 04/28/17 10:12 04/28/17 10:12 04/28/17 10:12 04/28/17 10:12 04/28/17 10:12 - General Ill-appearing, slow to respond - Eyes normal ocular movement - ENT Mucosa appears dry - Neck trachea midline - Respiratory normal expansion, clear to auscultation - Cardiovascular Rhythm: regular - Abdomen NG secretions are very dark Abdomen: soft, tender (Diffuse tenderness with some guarding), no organomegaly, surgical scars, no rebound, distended (Moderately) - Rectum Rectal vault is empty. Small amount of secretions are sent for Hemoccult Rectum: normal sphincter tone, no masses - Neurologic confused - Psychiatric oriented to person Results - Labs 04/28/17 17:35 04/28/17 10:38 Abnormal Lab Results - Last 24 Hours (Table) 04/28/17 04/28/17 04/28/17 Range/Units 10:26 10:38 10:38 WBC 31.3 H* (3.8-10.6) k/uL RBC 5.52 H (3.80-5.40) m/uL Hgb 17.0 H (11.4-16.0) gm/dL Hct 52.1 H (34.0-46.0) % Neutrophils # (Manual) 27.80 H (1.3-7.7) k/uL Metamyelocytes # (Man) 1.25 H (0) k/uL Myelocytes # (Manual) 0.31 H (0) k/uL PT 17.6 H (9.0-12.0) sec INR 1.8 H (<1.2) APTT 35.8 H (22.0-30.0) sec Chloride (98-107) mmol/L Carbon Dioxide (22-30) mmol/L BUN (7-17) mg/dL Creatinine (0.52-1.04) mg/dL Glucose (74-99) mg/dL POC Glucose (mg/dL) 124 H (75-99) mg/dL Plasma Lactic Acid Davi (0.7-2.0) mmol/L Calcium (8.4-10.2) mg/dL Phosphorus (2.5-4.5) mg/dL CK-MB (CK-2) (0.0-2.4) ng/mL Troponin I (0.000-0.034) ng/mL Total Protein (6.3-8.2) g/dL Albumin (3.5-5.0) g/dL TSH (0.465-4.680) mIU/L Urine Protein (Negative) Stool Occult Blood (Negative) 04/28/17 04/28/17 04/28/17 Range/Units 10:38 10:38 10:38 WBC (3.8-10.6) k/uL RBC (3.80-5.40) m/uL Hgb (11.4-16.0) gm/dL Hct (34.0-46.0) % Neutrophils # (Manual) (1.3-7.7) k/uL Metamyelocytes # (Man) (0) k/uL Myelocytes # (Manual) (0) k/uL PT (9.0-12.0) sec INR (<1.2) APTT (22.0-30.0) sec Chloride 108 H (98-107) mmol/L Carbon Dioxide 16 L (22-30) mmol/L BUN 35 H (7-17) mg/dL Creatinine 2.67 H (0.52-1.04) mg/dL Glucose 106 H (74-99) mg/dL POC Glucose (mg/dL) (75-99) mg/dL Plasma Lactic Acid Davi 8.7 H* (0.7-2.0) mmol/L Calcium 8.1 L (8.4-10.2) mg/dL Phosphorus 4.8 H (2.5-4.5) mg/dL CK-MB (CK-2) 5.1 H* (0.0-2.4) ng/mL Troponin I 0.201 H* (0.000-0.034) ng/mL Total Protein 4.5 L (6.3-8.2) g/dL Albumin 2.5 L (3.5-5.0) g/dL TSH 8.280 H (0.465-4.680) mIU/L Urine Protein (Negative) Stool Occult Blood (Negative) 04/28/17 04/28/17 04/28/17 Range/Units 10:40 14:56 16:33 WBC (3.8-10.6) k/uL RBC (3.80-5.40) m/uL Hgb (11.4-16.0) gm/dL Hct (34.0-46.0) % Neutrophils # (Manual) (1.3-7.7) k/uL Metamyelocytes # (Man) (0) k/uL Myelocytes # (Manual) (0) k/uL PT (9.0-12.0) sec INR (<1.2) APTT (22.0-30.0) sec Chloride (98-107) mmol/L Carbon Dioxide (22-30) mmol/L BUN (7-17) mg/dL Creatinine (0.52-1.04) mg/dL Glucose (74-99) mg/dL POC Glucose (mg/dL) (75-99) mg/dL Plasma Lactic Acid Davi 6.7 H* (0.7-2.0) mmol/L Calcium (8.4-10.2) mg/dL Phosphorus (2.5-4.5) mg/dL CK-MB (CK-2) (0.0-2.4) ng/mL Troponin I (0.000-0.034) ng/mL Total Protein (6.3-8.2) g/dL Albumin (3.5-5.0) g/dL TSH (0.465-4.680) mIU/L Urine Protein 1+ H (Negative) Stool Occult Blood Positive H (Negative) 04/28/17 Range/Units 17:35 WBC 25.2 H* (3.8-10.6) k/uL RBC (3.80-5.40) m/uL Hgb (11.4-16.0) gm/dL Hct 46.3 H (34.0-46.0) % Neutrophils # (Manual) (1.3-7.7) k/uL Metamyelocytes # (Man) (0) k/uL Myelocytes # (Manual) (0) k/uL PT (9.0-12.0) sec INR (<1.2) APTT (22.0-30.0) sec Chloride (98-107) mmol/L Carbon Dioxide (22-30) mmol/L BUN (7-17) mg/dL Creatinine (0.52-1.04) mg/dL Glucose (74-99) mg/dL POC Glucose (mg/dL) (75-99) mg/dL Plasma Lactic Acid Davi (0.7-2.0) mmol/L Calcium (8.4-10.2) mg/dL Phosphorus (2.5-4.5) mg/dL CK-MB (CK-2) (0.0-2.4) ng/mL Troponin I (0.000-0.034) ng/mL Total Protein (6.3-8.2) g/dL Albumin (3.5-5.0) g/dL TSH (0.465-4.680) mIU/L Urine Protein (Negative) Stool Occult Blood (Negative) Microbiology - Last 24 Hours (Table) 04/28/17 10:40 Urine Culture - Preliminary Urine,Catheterized Diabetes panel 04/28/17 Range/Units 10:38 Sodium 138 (137-145) mmol/L Potassium 3.7 (3.5-5.1) mmol/L Chloride 108 H (98-107) mmol/L Carbon Dioxide 16 L (22-30) mmol/L BUN 35 H (7-17) mg/dL Creatinine 2.67 H (0.52-1.04) mg/dL Glucose 106 H (74-99) mg/dL Calcium 8.1 L (8.4-10.2) mg/dL AST 28 (14-36) U/L ALT 28 (9-52) U/L Alkaline Phosphatase 59 (38-126) U/L Total Protein 4.5 L (6.3-8.2) g/dL Albumin 2.5 L (3.5-5.0) g/dL Thyroid panel 04/28/17 Range/Units 10:38 TSH 8.280 H (0.465-4.680) mIU/L Calcium panel 04/28/17 Range/Units 10:38 Calcium 8.1 L (8.4-10.2) mg/dL Phosphorus 4.8 H (2.5-4.5) mg/dL Albumin 2.5 L (3.5-5.0) g/dL Pituitary panel 04/28/17 Range/Units 10:38 Sodium 138 (137-145) mmol/L Potassium 3.7 (3.5-5.1) mmol/L Chloride 108 H (98-107) mmol/L Carbon Dioxide 16 L (22-30) mmol/L BUN 35 H (7-17) mg/dL Creatinine 2.67 H (0.52-1.04) mg/dL Glucose 106 H (74-99) mg/dL Calcium 8.1 L (8.4-10.2) mg/dL TSH 8.280 H (0.465-4.680) mIU/L Adrenal panel 04/28/17 Range/Units 10:38 Sodium 138 (137-145) mmol/L Potassium 3.7 (3.5-5.1) mmol/L Chloride 108 H (98-107) mmol/L Carbon Dioxide 16 L (22-30) mmol/L BUN 35 H (7-17) mg/dL Creatinine 2.67 H (0.52-1.04) mg/dL Glucose 106 H (74-99) mg/dL Calcium 8.1 L (8.4-10.2) mg/dL Total Bilirubin 0.5 (0.2-1.3) mg/dL AST 28 (14-36) U/L ALT 28 (9-52) U/L Alkaline Phosphatase 59 (38-126) U/L Total Protein 4.5 L (6.3-8.2) g/dL Albumin 2.5 L (3.5-5.0) g/dL - Imaging CT scan - abdomen: report reviewed, image reviewed Assessment and Plan (1) Lactic acidosis Status: Acute (2) Dehydration Status: Acute (3) SBO (small bowel obstruction) Status: Acute (4) SIRS (systemic inflammatory response syndrome) Status: Acute Plan: Her white count and lactic acid have improved from admission. At present we'll give her some vitamin K to reverse the elevated PT, PTT and INR. Hydrate, NG tube decompression. Broad-spectrum antibiotics. Control pain. Serial exams. Repeat x-rays in the morning. I'll follow closely with you. Further recommendations to follow.
[2017-04-28 18:30] LABS: Calcium 8.3 mg/dL (8.4-10.2); Potassium 3.9 mmol/L (3.5-5.1)
[2017-04-28] MEDS ORDERED: SODIUM CHLORIDE 0.9% 1,000 ML IV ONE ×2 (19:28→22:10)
[2017-04-28] MEDS: SODIUM CHLORIDE 0.9% 1,000 ML IV SCH (19:35)
[2017-04-28 21:43] LABS: Glucose,Whole Blood 97 mg/dL (75-99)
[2017-04-28] MEDS: LEVOTHYROXINE IVP 100 MCG/5 ML VIAL IV SCH (22:24)
[2017-04-28] MEDS: METOPROLOL TARTRATE 50 MG TAB PO SCH (22:29)
[2017-04-29] MEDS: metroNIDAZOLE-NS PMX 500 MG in SALINE 1 100ML.BAG IVPB SCH ×3 (00:45→15:30)
[2017-04-29] MEDS ORDERED: SODIUM CHLORIDE 0.9% 1,000 ML IV ONE ×2 (01:04→09:35)
[2017-04-29] MEDS ORDERED: FUROSEMIDE 10 MG/ML 10 ML VIAL IV STA ×2 (03:31→15:29)
[2017-04-29] MEDS: MORPHINE SULFATE 4 MG/ML SYRINGE IVP PRN ×5 (03:45→22:41)
[2017-04-29] MEDS: SODIUM CHLORIDE 0.9% 1,000 ML IV SCH ×3 (03:46→21:56)
[2017-04-29 03:47] LABS: CH 31.3; CHCM 32.9; HDW 2.63; HGB 16.1 gm/dL (11.4-16.0); Immature Gran Flag Marked; MCH 30.3 pg (25.0-35.0); MCHC 31.6 g/dL (31.0-37.0); MCV 95.7 fL (80.0-100.0); Mean Platelet Volume 7.7; RBC 5.32 m/uL (3.80-5.40); RDW 14.9 % (11.5-15.5); WBC (Perox) 21.64
[2017-04-29 03:59] LABS: Calcium 7.2 mg/dL (8.4-10.2); Magnesium 1.8 mg/dL (1.6-2.3); Phosphorous 4.6 mg/dL (2.5-4.5); Potassium 4.7 mmol/L (3.5-5.1); Total Bilirubin 0.7 mg/dL (0.2-1.3); Total Protein 4.6 g/dL (6.3-8.2)
[2017-04-29] MEDS: LEVOTHYROXINE IVP 100 MCG/5 ML VIAL IV SCH (05:57)
[2017-04-29 07:06] LABS: Add Differential Manual Differential
[2017-04-29 07:14] LABS: Band Neutrophils % 54 %; Metamyelocytes % 4 %; Nucleated Red Blood Cells 0 /100 WBC (0-0); Total Cells Counted 200
[2017-04-29 07:25] LABS: Polychromasia Present
--- NOTE | 2017-04-29 07:46 | XR ---
EXAMINATION TYPE: XR chest 1V portable DATE OF EXAM: 04/29/2017 HISTORY: Shortness of breath. COMPARISON: 04/28/2017 TECHNIQUE: Single view of the chest is submitted. FINDINGS: Demonstrated are scattered senescent parenchymal change. NG tube is seen coursing into the stomach. Basilar infiltrates and left-sided effusion are noted. The heart is stable. Hilar and mediastinal structures are within normal limits. Degenerative changes are seen of the dorsal spine. IMPRESSION: 1. Basilar infiltrates and left-sided effusion are noted.
--- NOTE | 2017-04-29 07:50 | XR ---
EXAMINATION TYPE: XR abdomen 1V DATE OF EXAM: 04/29/2017 COMPARISON: None HISTORY: Pain TECHNIQUE: Single supine KUB image of the abdomen is obtained FINDINGS: There is a large amount of stool seen within the colon. Correlate for fecal impaction. Other several dilated loops of small bowel within the right hemiabdomen measuring up to 3.8 cm in greatest transver se dimension. No convincing evidence for pneumoperitoneum. No unusual calcifications. The lung bases are clear. The osseous structures are intact. IMPRESSION: 1. Large amount of stool seen within the colon. Correlate for fecal impaction. 2. Small bowel ileus versus early complete versus partial small bowel obstruction.
[2017-04-29] MEDS ORDERED: BISACODYL 10 MG SUPP RECTAL STA (08:20)
[2017-04-29] MEDS: PANTOPRAZOLE 40 MG/10 ML VIAL IV SCH (08:38)
[2017-04-29] MEDS ORDERED: ENOXAPARIN 40 MG/0.4 ML SYRINGE SQ SCH (09:00)
[2017-04-29] MEDS ORDERED: ENOXAPARIN 30 MG/0.3 ML SYRINGE SQ SCH (09:00)
[2017-04-29 09:48] LABS: INR 1.8 (<1.2); Partial Thromboplastin Time 40.9 sec (22.0-30.0); Prothrombin Time 17.4 sec (9.0-12.0)
[2017-04-29 11:06] VITALS: BMI 23.8
[2017-04-29] MEDS ORDERED: PHYTONADIONE 10 MG in SODIUM CHLORIDE 0.9% 50 ML IVPB STA (11:42)
--- NOTE | 2017-04-29 11:42 | P.PN ---
Subjective Principal diagnosis: Lactic acidosis, sepsis, abdominal pain The patient is clinically doing better today. Her blood pressures improved. She is complaining of some abdominal discomfort. No nausea or vomiting. No BM. Objective - Vital Signs Vital signs: Vital Signs Temp 97.2 F L 04/29/17 11:00 Pulse 84 04/29/17 11:00 Resp 13 04/29/17 11:00 BP 156/57 04/29/17 11:00 Pulse Ox 95 04/29/17 11:00 Intake & Output 04/28/17 04/29/17 04/29/17 18:59 06:59 18:59 Intake Total 5975 1500 Output Total 1294 230 Balance 4681 1270 Weight 49.895 kg 73.2 kg 73.2 kg Intake: IV 2975 1500 Sodium Chloride 0.9% 1, 875 500 000 ml @ 125 mls/hr IV . Q8H NADINE Rx#:[id number] Sodium Chloride 0.9% 1, 2000 1000 000 ml @ 999 mls/hr IV . Q1H1M STA Rx#:[id number] metroNIDAZOLE-NS PMX 500 100 mg In Saline 1 100ml.bag @ 100 mls/hr IVPB Q8HR NADINE Rx#:[id number] Amount of Fluid Infused ( 3000 ml) Output: Gastric Drainage 1000 100 Urine 294 130 Other: Voiding Method Indwelling Catheter Indwelling Catheter - Constitutional General appearance: Present: cooperative, mild distress (Appears uncomfortable. Responds slowly but appropriately) - Respiratory Respiratory: bilateral: CTA - Cardiovascular Rhythm: regular - Gastrointestinal General gastrointestinal: Present: decreased bowel sounds, distended (Much less distended than yesterday. ), soft, tenderness (Some tenderness on the right upper quadrant epigastrium and left upper quadrant) - Labs CBC & Chem 7: 04/29/17 03:30 04/29/17 03:30 Labs: Abnormal Lab Results - Last 24 Hours (Table) 04/28/17 04/28/17 04/28/17 Range/Units 10:38 10:38 10:38 WBC (3.8-10.6) k/uL Hgb (11.4-16.0) gm/dL Hct (34.0-46.0) % Neutrophils # (Manual) 27.80 H (1.3-7.7) k/uL Lymphocytes # (Manual) (1.0-4.8) k/uL Metamyelocytes # (Man) 1.25 H (0) k/uL Myelocytes # (Manual) 0.31 H (0) k/uL PT (9.0-12.0) sec INR (<1.2) APTT (22.0-30.0) sec Chloride 108 H (98-107) mmol/L Carbon Dioxide 16 L (22-30) mmol/L BUN 35 H (7-17) mg/dL Creatinine 2.67 H (0.52-1.04) mg/dL Glucose 106 H (74-99) mg/dL Plasma Lactic Acid Davi (0.7-2.0) mmol/L Calcium 8.1 L (8.4-10.2) mg/dL Phosphorus 4.8 H (2.5-4.5) mg/dL AST (14-36) U/L CK-MB (CK-2) 5.1 H* (0.0-2.4) ng/mL Troponin I 0.201 H* (0.000-0.034) ng/mL Total Protein 4.5 L (6.3-8.2) g/dL Albumin 2.5 L (3.5-5.0) g/dL TSH 8.280 H (0.465-4.680) mIU/L Stool Occult Blood (Negative) 04/28/17 04/28/17 04/28/17 Range/Units 14:56 16:33 17:35 WBC 25.2 H* (3.8-10.6) k/uL Hgb (11.4-16.0) gm/dL Hct 46.3 H (34.0-46.0) % Neutrophils # (Manual) (1.3-7.7) k/uL Lymphocytes # (Manual) (1.0-4.8) k/uL Metamyelocytes # (Man) (0) k/uL Myelocytes # (Manual) (0) k/uL PT (9.0-12.0) sec INR (<1.2) APTT (22.0-30.0) sec Chloride (98-107) mmol/L Carbon Dioxide (22-30) mmol/L BUN (7-17) mg/dL Creatinine (0.52-1.04) mg/dL Glucose (74-99) mg/dL Plasma Lactic Acid Davi 6.7 H* (0.7-2.0) mmol/L Calcium (8.4-10.2) mg/dL Phosphorus (2.5-4.5) mg/dL AST (14-36) U/L CK-MB (CK-2) (0.0-2.4) ng/mL Troponin I (0.000-0.034) ng/mL Total Protein (6.3-8.2) g/dL Albumin (3.5-5.0) g/dL TSH (0.465-4.680) mIU/L Stool Occult Blood Positive H (Negative) 04/28/17 04/28/17 04/28/17 Range/Units 17:35 17:35 23:20 WBC (3.8-10.6) k/uL Hgb (11.4-16.0) gm/dL Hct (34.0-46.0) % Neutrophils # (Manual) (1.3-7.7) k/uL Lymphocytes # (Manual) (1.0-4.8) k/uL Metamyelocytes # (Man) (0) k/uL Myelocytes # (Manual) (0) k/uL PT (9.0-12.0) sec INR (<1.2) APTT (22.0-30.0) sec Chloride (98-107) mmol/L Carbon Dioxide 21 L (22-30) mmol/L BUN 41 H (7-17) mg/dL Creatinine 2.76 H (0.52-1.04) mg/dL Glucose (74-99) mg/dL Plasma Lactic Acid Davi 2.7 H* (0.7-2.0) mmol/L Calcium 8.3 L (8.4-10.2) mg/dL Phosphorus (2.5-4.5) mg/dL AST (14-36) U/L CK-MB (CK-2) (0.0-2.4) ng/mL Troponin I 0.306 H* (0.000-0.034) ng/mL Total Protein (6.3-8.2) g/dL Albumin (3.5-5.0) g/dL TSH (0.465-4.680) mIU/L Stool Occult Blood (Negative) 04/28/17 04/29/17 04/29/17 Range/Units 23:20 03:30 03:30 WBC 22.0 H (3.8-10.6) k/uL Hgb 16.1 H (11.4-16.0) gm/dL Hct 51.0 H (34.0-46.0) % Neutrophils # (Manual) 20.40 H (1.3-7.7) k/uL Lymphocytes # (Manual) 0.44 L (1.0-4.8) k/uL Metamyelocytes # (Man) 0.88 H (0) k/uL Myelocytes # (Manual) (0) k/uL PT (9.0-12.0) sec INR (<1.2) APTT (22.0-30.0) sec Chloride 113 H (98-107) mmol/L Carbon Dioxide 14 L (22-30) mmol/L BUN 46 H (7-17) mg/dL Creatinine 2.90 H (0.52-1.04) mg/dL Glucose (74-99) mg/dL Plasma Lactic Acid Davi (0.7-2.0) mmol/L Calcium 7.2 L (8.4-10.2) mg/dL Phosphorus 4.6 H (2.5-4.5) mg/dL AST 73 H (14-36) U/L CK-MB (CK-2) (0.0-2.4) ng/mL Troponin I 0.384 H* (0.000-0.034) ng/mL Total Protein 4.6 L (6.3-8.2) g/dL Albumin 2.5 L (3.5-5.0) g/dL TSH (0.465-4.680) mIU/L Stool Occult Blood (Negative) 04/29/17 Range/Units 03:30 WBC (3.8-10.6) k/uL Hgb (11.4-16.0) gm/dL Hct (34.0-46.0) % Neutrophils # (Manual) (1.3-7.7) k/uL Lymphocytes # (Manual) (1.0-4.8) k/uL Metamyelocytes # (Man) (0) k/uL Myelocytes # (Manual) (0) k/uL PT 17.4 H (9.0-12.0) sec INR 1.8 H (<1.2) APTT 40.9 H (22.0-30.0) sec Chloride (98-107) mmol/L Carbon Dioxide (22-30) mmol/L BUN (7-17) mg/dL Creatinine (0.52-1.04) mg/dL Glucose (74-99) mg/dL Plasma Lactic Acid Davi (0.7-2.0) mmol/L Calcium (8.4-10.2) mg/dL Phosphorus (2.5-4.5) mg/dL AST (14-36) U/L CK-MB (CK-2) (0.0-2.4) ng/mL Troponin I (0.000-0.034) ng/mL Total Protein (6.3-8.2) g/dL Albumin (3.5-5.0) g/dL TSH (0.465-4.680) mIU/L Stool Occult Blood (Negative) Microbiology - Last 24 Hours (Table) 04/28/17 10:40 Urine Culture - Preliminary Urine,Catheterized Assessment and Plan (1) Lactic acidosis Status: Acute (2) Dehydration Status: Acute (3) SBO (small bowel obstruction) Status: Acute (4) SIRS (systemic inflammatory response syndrome) Status: Acute (5) Acute renal failure Status: Acute (6) Coagulopathy Status: Acute Plan: we are going to give her some Dulcolax suppositories to try to stimulate the colon to evacuate. Continue IV antibiotics and supportive care. Reverse her coagulopathy. She is clinically much improved with improving leukocytosis. Her lactic acidosis has resolved. Continue serial exams and x-rays. May need surgery medical course.
--- NOTE | 2017-04-29 11:56 | P.PN ---
Subjective Principal diagnosis: Acute colitis and possible abdominal sepsis This is a very pleasant 81-year-old female patient who follows with Dr. Ministerio Key as her primary care physician. 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 He presented to the emergency room this morning after her found her quite weak and lethargic and confused. He states yesterday she appeared fine however he had to leave the house for several hours and upon his return at 7:30 PM she was already in bed. He asked if she was okay she stated she just wanted to rest. He did feel she had not been eating and drinking much the last several days. Early this morning she became quite confused and lethargic, complaining of severe abdominal discomfort and EMS was called. Her initial labs reveal a white count of 31.3, hemoglobin 17.0, neutrophils 27.8, metamyelocytes 1.25, myelocytes 0.31. Her INR was 1.8. BUN 35 with a creatinine of 2.67. Her lactic acid is 8.7. Troponin 0.201. A computed tomography scan of the abdomen and pelvis revealed moderate to severe colitis involving the left colon. There is enteritis involving small bowel loops in the right upper to mid abdomen. Infectious, inflammatory and ischemic etiologies are within the differential. There is a partial or developing mid to distal small bowel obstruction. Her stomach is distended. There is a fair amount of colonic fecal stasis noted as well. Wondering cecum expected. She has been a initiated on Levaquin and metronidazole. 3 L of 0.9 normal saline have been infused. She currently has a 0.9 normal saline at 100 MLS. She is seen today in the emergency room. She is awake. She is slow to respond. A poor historian. She is maintaining O2 saturations in the upper 90s on 2 L/m per nasal cannula. She is currently afebrile. Hemodynamically stable with improved blood pressure post fluid resuscitation. Patient was reevaluated today on 04/29/2017, continues to have abdominal distention, abdominal pain, no bowel movements since the last few days. Hemodynamics-stover, patient responded to fluid boluses, and did not require any pressors. Urine output remains marginal, hence more fluid boluses will be given , and the patient did not respond well to a high dose of Lasix given last night. Denies any shortness of breath, no cough, no wheezing, but continues to have some abdominal discomfort and tenderness. Continues to have leukocytosis with WBC count of 22.0, however improved compared to the leukocytosis on admission of 25.2. Lactic acid is down to 1.6 today from 2.7 on admission. ProBNP level is elevated, however the chest x-ray showed no evidence of congestive heart failure, there is mostly by basilar atelectasis, and a small left-sided pleural effusion. Objective - Vital Signs Vital signs: Vital Signs Temp 97.2 F L 04/29/17 11:00 Pulse 84 04/29/17 11:00 Resp 13 04/29/17 11:00 BP 156/57 04/29/17 11:00 Pulse Ox 95 04/29/17 11:00 Intake & Output 04/28/17 04/29/17 04/29/17 18:59 06:59 18:59 Intake Total 5975 1500 Output Total 1294 230 Balance 4681 1270 Weight 49.895 kg 73.2 kg 73.2 kg Intake: IV 2975 1500 Sodium Chloride 0.9% 1, 875 500 000 ml @ 125 mls/hr IV . Q8H NADINE Rx#:[id number] Sodium Chloride 0.9% 1, 2000 1000 000 ml @ 999 mls/hr IV . Q1H1M STA Rx#:[id number] metroNIDAZOLE-NS PMX 500 100 mg In Saline 1 100ml.bag @ 100 mls/hr IVPB Q8HR NADINE Rx#:[id number] Amount of Fluid Infused ( 3000 ml) Output: Gastric Drainage 1000 100 Urine 294 130 Other: Voiding Method Indwelling Catheter Indwelling Catheter - Exam GENERAL EXAM: Left lethargic today, and seems to be quite appropriate. HEAD: Normocephalic. EYES: Normal reaction of pupils, equal size. NOSE: Clear with pink turbinates. THROAT: No erythema or exudates. NECK: No masses, no JVD. CHEST: No chest wall deformity. LUNGS: Equal air entry with no crackles, wheeze, rhonchi or dullness. CVS: S1 and S2 normal with no audible murmurs, regular rhythm. ABDOMEN: Slightly distended, tender to palpation, hypoactive bowel sounds Extremities: There is no peripheral edema. No clubbing, no cyanosis. Peripheral pulses are intact. - Labs CBC & Chem 7: 04/29/17 03:30 04/29/17 03:30 Labs: Abnormal Lab Results - Last 24 Hours (Table) 04/28/17 04/28/17 04/28/17 Range/Units 10:38 10:38 14:56 WBC (3.8-10.6) k/uL Hgb (11.4-16.0) gm/dL Hct (34.0-46.0) % Neutrophils # (Manual) (1.3-7.7) k/uL Lymphocytes # (Manual) (1.0-4.8) k/uL Metamyelocytes # (Man) (0) k/uL PT (9.0-12.0) sec INR (<1.2) APTT (22.0-30.0) sec Chloride 108 H (98-107) mmol/L Carbon Dioxide 16 L (22-30) mmol/L BUN 35 H (7-17) mg/dL Creatinine 2.67 H (0.52-1.04) mg/dL Glucose 106 H (74-99) mg/dL Plasma Lactic Acid Davi 6.7 H* (0.7-2.0) mmol/L Calcium 8.1 L (8.4-10.2) mg/dL Phosphorus 4.8 H (2.5-4.5) mg/dL AST (14-36) U/L CK-MB (CK-2) 5.1 H* (0.0-2.4) ng/mL Troponin I 0.201 H* (0.000-0.034) ng/mL Total Protein 4.5 L (6.3-8.2) g/dL Albumin 2.5 L (3.5-5.0) g/dL TSH 8.280 H (0.465-4.680) mIU/L Stool Occult Blood (Negative) 04/28/17 04/28/17 04/28/17 Range/Units 16:33 17:35 17:35 WBC 25.2 H* (3.8-10.6) k/uL Hgb (11.4-16.0) gm/dL Hct 46.3 H (34.0-46.0) % Neutrophils # (Manual) (1.3-7.7) k/uL Lymphocytes # (Manual) (1.0-4.8) k/uL Metamyelocytes # (Man) (0) k/uL PT (9.0-12.0) sec INR (<1.2) APTT (22.0-30.0) sec Chloride (98-107) mmol/L Carbon Dioxide 21 L (22-30) mmol/L BUN 41 H (7-17) mg/dL Creatinine 2.76 H (0.52-1.04) mg/dL Glucose (74-99) mg/dL Plasma Lactic Acid Davi (0.7-2.0) mmol/L Calcium 8.3 L (8.4-10.2) mg/dL Phosphorus (2.5-4.5) mg/dL AST (14-36) U/L CK-MB (CK-2) (0.0-2.4) ng/mL Troponin I (0.000-0.034) ng/mL Total Protein (6.3-8.2) g/dL Albumin (3.5-5.0) g/dL TSH (0.465-4.680) mIU/L Stool Occult Blood Positive H (Negative) 04/28/17 04/28/17 04/28/17 Range/Units 17:35 23:20 23:20 WBC (3.8-10.6) k/uL Hgb (11.4-16.0) gm/dL Hct (34.0-46.0) % Neutrophils # (Manual) (1.3-7.7) k/uL Lymphocytes # (Manual) (1.0-4.8) k/uL Metamyelocytes # (Man) (0) k/uL PT (9.0-12.0) sec INR (<1.2) APTT (22.0-30.0) sec Chloride (98-107) mmol/L Carbon Dioxide (22-30) mmol/L BUN (7-17) mg/dL Creatinine (0.52-1.04) mg/dL Glucose (74-99) mg/dL Plasma Lactic Acid Davi 2.7 H* (0.7-2.0) mmol/L Calcium (8.4-10.2) mg/dL Phosphorus (2.5-4.5) mg/dL AST (14-36) U/L CK-MB (CK-2) (0.0-2.4) ng/mL Troponin I 0.306 H* 0.384 H* (0.000-0.034) ng/mL Total Protein (6.3-8.2) g/dL Albumin (3.5-5.0) g/dL TSH (0.465-4.680) mIU/L Stool Occult Blood (Negative) 04/29/17 04/29/17 04/29/17 Range/Units 03:30 03:30 03:30 WBC 22.0 H (3.8-10.6) k/uL Hgb 16.1 H (11.4-16.0) gm/dL Hct 51.0 H (34.0-46.0) % Neutrophils # (Manual) 20.40 H (1.3-7.7) k/uL Lymphocytes # (Manual) 0.44 L (1.0-4.8) k/uL Metamyelocytes # (Man) 0.88 H (0) k/uL PT 17.4 H (9.0-12.0) sec INR 1.8 H (<1.2) APTT 40.9 H (22.0-30.0) sec Chloride 113 H (98-107) mmol/L Carbon Dioxide 14 L (22-30) mmol/L BUN 46 H (7-17) mg/dL Creatinine 2.90 H (0.52-1.04) mg/dL Glucose (74-99) mg/dL Plasma Lactic Acid Davi (0.7-2.0) mmol/L Calcium 7.2 L (8.4-10.2) mg/dL Phosphorus 4.6 H (2.5-4.5) mg/dL AST 73 H (14-36) U/L CK-MB (CK-2) (0.0-2.4) ng/mL Troponin I (0.000-0.034) ng/mL Total Protein 4.6 L (6.3-8.2) g/dL Albumin 2.5 L (3.5-5.0) g/dL TSH (0.465-4.680) mIU/L Stool Occult Blood (Negative) Microbiology - Last 24 Hours (Table) 04/28/17 10:40 Urine Culture - Preliminary Urine,Catheterized Assessment and Plan Plan: #1 Severe sepsis secondary to moderate to severe colitis involving the left colon along with enteritis involving the small bowels in the right upper to mid abdomen. #2 no evidence of septic shock, since the patient so far has not required any pressors. She did require however multiple fluid boluses almost 5 L so far. #3 Partial or developing mid to distal small bowel obstruction with distended stomach and diffuse colonic fecal stasis. #4 Leukocytosis with bandemia secondary to above. #5 Lactic acidosis secondary to above. #6 Acute renal failure secondary to sepsis, hypotension and dehydration. #7 Coagulopathy secondary to sepsis, INR 1.8. #8 Troponin leak. #9 History of hypertension. #10 Hyperlipidemia. #11 Coronary artery disease status post coronary stent placement 3. Currently on Plavix and aspirin. #12 History of CVA/TIA. Recommendation: Continue present supportive care measures, patient will remain in the ICU, still critically ill, she may even eventually require surgical intervention secondary to her bowel obstruction if she doesn't improve much. Surgery is on the case. Prognosis remains poor and guarded, discussed her condition with all her family members at bedside. Patient remains critically ill, critical care time is 34 minutes. Time with Patient: Greater than 30
[2017-04-29] MEDS ORDERED: LEVOFLOXACIN 750MG-D5W PMX 750 MG in DEXTROSE/WATER 1 150ML.BAG IVPB SCH (13:00)
--- NOTE | 2017-04-29 14:33 | CONS ---
CONSULTATION CHIEF COMPLAINT: Elevated troponins. This is an 81-year-old lady with history of coronary artery disease, status post prior angioplasty, MRSA of the right leg, previous TIA who presented to the hospital with symptoms of not feeling well, not eating and drinking. She became quite confused, lethargic and had abdominal pain. She comes in and she is currently being worked up for intestinal obstruction. Her troponins are slightly elevated for which Cardiology consulted. At the time of my evaluation, she appears pleasantly confused, but is waking up and is answering questions. Has an NG tube in place. EKG shows sinus rhythm with nonspecific ST-T wave changes suggestive of ischemia. She has elevated white cell count at 22. Lactic acid is elevated at 2.7. Chest x-ray does not reveal any evidence of congestive heart failure. The BNP is elevated probably related to the underlying acute illness. PAST MEDICAL HISTORY: Past medical history is significant for coronary artery disease, status post angioplasty, hypertension, dyslipidemia. MEDICATIONS: Medications at home include Zestoretic, aspirin, Lopressor 50 b.i.d., Plavix 75 q. daily, Lipitor 20 q. daily. ALLERGIES: Allergic to PENICILLIN. FAMILY HISTORY: Family history is negative for premature coronary artery disease. SOCIAL HISTORY: Negative for smoking. REVIEW OF SYSTEMS: HEENT is unremarkable. CARDIAC: As described above. RESPIRATORY: Negative. GI: As described above. GENITOURINARY: Negative. Musculoskeletal is significant for fatigue and tiredness. TUBE FILLER: Significant for confusion. Rest of the systems reviewed, not relevant. PHYSICAL EXAMINATION: On exam, afebrile, heart rate is 80 beats per minute. Blood pressure is 150/57, respiratory rate 18. There is no jugular venous distention. Carotid upstroke is normal. Chest exam reveals diminished air entry bilaterally. Heart exam reveals first and second heart sounds. No gallop. Abdomen is soft. Exam of extremities did not reveal any edema. Peripheral pulses are palpable. LABS: Labs show that white cell count is 22. INR is elevated at 1.8. Lactic acid is elevated. AST is high. Troponin is in the thompson zone. BNP is 3110. Her tropes are at 0.2, 0.3 and 0.3. ASSESSMENT: 1. Troponin elevation probably related to small myocardial infarction in the context of systemic illness. 2. Confusion and abdominal pain, rule out bowel ischemia. 3. History of hypertension. 4. History of dyslipidemia. PLAN: Will treat with supportive care. Patient is able to take for Lopressor, Plavix and Lipitor. She is not a candidate for invasive procedures at this time. MMAMANDAL / IJN: [id number] /
[2017-04-29] MEDS ORDERED: SODIUM BICARB 8.4% 50 ML SYR (1 MEQ/ML) IV ONE (15:30)
[2017-04-29] MEDS: METOPROLOL TARTRATE 50 MG TAB PO SCH (15:30)
--- NOTE | 2017-04-29 16:13 | P.PN ---
Subjective This is a pleasant 81-year-old female patient of Dr. Ministerio Key. She has a history of hypertension and CAD with prior stent placement, previous TIA less than 10 years ago, follows with Dr. Fazal Sepulveda cardiology, and was stable on his last visit 04/06/2017 without any evidence of CHF or valvular heart disease or unstable angina according to the . Patient has been evaluated in the emergency room after the found her to be weak and moaning and groaning and increasing;y confused, patient did not complain anything significant prior to this however on further inquiry, patient has had increasing abdominal pain and abdominal distention, anorexia diminished appetite nausea and vomiting without any fever, last bowel movement was 1 week prior to admission. 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 Patient does not have any baseline colonoscopy In the emergency room patient was seen and was noted to have a CAT scan of the abdomen and pelvis showing moderate severe colitis involving the left colon enteritis involving small bowel loops in the right upper to mid abdomen a partial or developing mid to distal small bowel obstruction cannot be ruled out , distended stomach is noted there is moderate diffuse colonic fecal stasis, wondering cecum suspected. At 3.2 cm ovarian cyst right side which needs to be worked up as an outpatient. There is moderate to severe wall thickening with scattered diverticula in the left colon surrounding ill-defined fluid and fat stranding present. Severe calcified plaque of the aorta extending into branch vessels small fluid noted in the left paracolic gutter and surrounding the liver anteriorly Laterally. Patient was septic on ER presentation with a wbc of 31,000, INR 1.8, creatinine of 2.7, lactic acid of 8.7 TSH is elevated at 8, troponin elevated at 0.2 urinalysis negative except for proteinuria 04/29: Patient currently remains in ICU, cytosis and lactic acidosis is improving , patient currently is in a G-tube and is nothing by mouth for bowel rest, rectal suppositories for fecal impaction, T-max of 98.6 , IV antibiotics Levaquin and Flagyl, hemodynamically stable. Patient's morning groaning with pain patient remains to be alert however occasionally lethargic. No plan for any surgical intervention, this time we would resume Plavix aspirin once general surgery clears her for nothing by mouth except with meds Objective - Vital Signs Vital signs: Vital Signs Temp 98.1 F 04/29/17 12:00 Pulse 96 04/29/17 15:43 Resp 16 04/29/17 15:43 BP 120/66 04/29/17 15:43 Pulse Ox 96 04/29/17 15:00 Intake & Output 04/28/17 04/29/17 04/29/17 18:59 06:59 18:59 Intake Total 5975 2200 Output Total 1294 310 Balance 4681 1890 Weight 49.895 kg 73.2 kg 73.2 kg Intake: IV 2975 2200 Phytonadione 10 mg In 100 Sodium Chloride 0.9% 50 ml @ 100 mls/hr IVPB ONCE STA Rx#:[id number] Sodium Chloride 0.9% 1, 875 1000 000 ml @ 125 mls/hr IV . Q8H NADINE Rx#:[id number] Sodium Chloride 0.9% 1, 2000 1000 000 ml @ 999 mls/hr IV . Q1H1M STA Rx#:[id number] metroNIDAZOLE-NS PMX 500 100 100 mg In Saline 1 100ml.bag @ 100 mls/hr IVPB Q8HR NADINE Rx#:[id number] Amount of Fluid Infused ( 3000 ml) Output: Gastric Drainage 1000 100 Urine 294 210 Other: Voiding Method Indwelling Catheter Indwelling Catheter - Constitutional General appearance: Present: average body habitus, cooperative, mild distress - EENT Eyes: Present: anicteric sclerae, EOMI ENT: Present: NA/AT (NG tube) - Neck Neck: Present: normal ROM - Respiratory Respiratory: bilateral: CTA, diminished - Cardiovascular Rhythm: regular Heart sounds: normal: S2, abnormal: S1 Abnormal Heart Sounds: Present: systolic murmur - Gastrointestinal General gastrointestinal: Present: decreased bowel sounds, distended, soft, tenderness - Integumentary Integumentary: Present: normal, normal turgor - Neurologic Neurologic: Present: CNII-XII intact - Musculoskeletal Musculoskeletal: Present: gait normal, strength equal bilaterally - Psychiatric Psychiatric: Present: A&O x's 3, appropriate affect, intact judgment & insight - Labs CBC & Chem 7: 04/29/17 03:30 04/29/17 03:30 Labs: Abnormal Lab Results - Last 24 Hours (Table) 04/28/17 04/28/17 04/28/17 Range/Units 16:33 17:35 17:35 WBC 25.2 H* (3.8-10.6) k/uL Hgb (11.4-16.0) gm/dL Hct 46.3 H (34.0-46.0) % Neutrophils # (Manual) (1.3-7.7) k/uL Lymphocytes # (Manual) (1.0-4.8) k/uL Metamyelocytes # (Man) (0) k/uL PT (9.0-12.0) sec INR (<1.2) APTT (22.0-30.0) sec Chloride (98-107) mmol/L Carbon Dioxide 21 L (22-30) mmol/L BUN 41 H (7-17) mg/dL Creatinine 2.76 H (0.52-1.04) mg/dL Plasma Lactic Acid Davi (0.7-2.0) mmol/L Calcium 8.3 L (8.4-10.2) mg/dL Phosphorus (2.5-4.5) mg/dL AST (14-36) U/L Troponin I (0.000-0.034) ng/mL Total Protein (6.3-8.2) g/dL Albumin (3.5-5.0) g/dL Stool Occult Blood Positive H (Negative) 04/28/17 04/28/17 04/28/17 Range/Units 17:35 23:20 23:20 WBC (3.8-10.6) k/uL Hgb (11.4-16.0) gm/dL Hct (34.0-46.0) % Neutrophils # (Manual) (1.3-7.7) k/uL Lymphocytes # (Manual) (1.0-4.8) k/uL Metamyelocytes # (Man) (0) k/uL PT (9.0-12.0) sec INR (<1.2) APTT (22.0-30.0) sec Chloride (98-107) mmol/L Carbon Dioxide (22-30) mmol/L BUN (7-17) mg/dL Creatinine (0.52-1.04) mg/dL Plasma Lactic Acid Davi 2.7 H* (0.7-2.0) mmol/L Calcium (8.4-10.2) mg/dL Phosphorus (2.5-4.5) mg/dL AST (14-36) U/L Troponin I 0.306 H* 0.384 H* (0.000-0.034) ng/mL Total Protein (6.3-8.2) g/dL Albumin (3.5-5.0) g/dL Stool Occult Blood (Negative) 04/29/17 04/29/17 04/29/17 Range/Units 03:30 03:30 03:30 WBC 22.0 H (3.8-10.6) k/uL Hgb 16.1 H (11.4-16.0) gm/dL Hct 51.0 H (34.0-46.0) % Neutrophils # (Manual) 20.40 H (1.3-7.7) k/uL Lymphocytes # (Manual) 0.44 L (1.0-4.8) k/uL Metamyelocytes # (Man) 0.88 H (0) k/uL PT 17.4 H (9.0-12.0) sec INR 1.8 H (<1.2) APTT 40.9 H (22.0-30.0) sec Chloride 113 H (98-107) mmol/L Carbon Dioxide 14 L (22-30) mmol/L BUN 46 H (7-17) mg/dL Creatinine 2.90 H (0.52-1.04) mg/dL Plasma Lactic Acid Davi (0.7-2.0) mmol/L Calcium 7.2 L (8.4-10.2) mg/dL Phosphorus 4.6 H (2.5-4.5) mg/dL AST 73 H (14-36) U/L Troponin I (0.000-0.034) ng/mL Total Protein 4.6 L (6.3-8.2) g/dL Albumin 2.5 L (3.5-5.0) g/dL Stool Occult Blood (Negative) Microbiology - Last 24 Hours (Table) 04/28/17 13:25 Blood Culture - Preliminary Blood No Growth after 24 hours 04/28/17 10:40 Urine Culture - Final Urine,Catheterized Assessment and Plan Plan: 1. Sepsis with SIRS secondary to significant colitis with fecal burden no evidence of peritonitis at this time, with a partial to early developing distal small bowel obstruction is suspected to CT, patient is dehydrated with acute kidney failure on ER presentation, patient is admitted to ICU with general consult to Dr. Butt general surgery, rolling up machine operator Dr. Trent, and patient will be started on IV Flagyl and IV Levaquin. Patient has penicillin ALLERGY. Patient is made nothing by mouth, patient might need an NG tube. Patient will be closely monitored, and no plans for acute surgical intervention at this time should be a class III anesthesia risk should there be immediate surgery needed carrying higher risk mortality 2. Hemodynamic instability with hypotension, secondary to septic shock fluid boluses are currently being given, IV fluids and avoidance of any nephrotoxic agents, to the primary condition which is bowel resection IV antibiotics on board next lisinopril on hold secondary to hypotension thiazide on hold 3. Acute kidney failure, unknown baseline. Renal injury most likely secondary to ATN rather than interstitial nephritis, no recent antibiotics prior to this admission no recent NSAID use 4. Elevated troponin most likely secondary to sepsis, patient is on Plavix which is on hold secondary to possible surgical intervention over the next 48 hours. Cardiology consult, patient would have troponins BNP bio-markers followed closely 5. CAD with 3 cardiac stents follows with Dr. Fazal Sepulveda cardiology patient is on Plavix which is on hold until surgical emergency situationi s stabilized continue on Lopressor 50 mg twice a day with parameters 6. Hypothyroidism IV l-thyroxine 25 g daily, no previous thyroid supplementation prior to admission 7. Metabolic encephalopathy secondary to sepsis, 8. Coagulopathy secondary to sepsis or signs of cutaneous bleeding at this time , monitor for ongoing GI losses vitamin K given patient is not on any oral anticoagulants 9. Hyperlipidemia on Lipitor on hold currently nothing by mouth 10. Right ovarian cyst unusual for age, CA [address] Amor 10. Lactic acidosis secondary to sepsis 11. GI prophylaxis IV Protonix 12. DVT prophylaxis with Lovenox 13 Moderate protein malnutrition secondary to prolonged diminished appetite Prognosis guarded
[2017-04-29] MEDS: MEROPENEM 500 MG in SODIUM CHLORIDE 0.9% 50 ML IVPB SCH ×2 (18:50→23:52)
[2017-04-29] MEDS: 1: MVI, ADULT NO.4 WITH VIT K 10 ML, THIAMINE 100 MG, FOLIC ACID 1 MG in SODIUM CHLORIDE IV SCH ×4 (19:09)
[2017-04-29] MEDS ORDERED: SODIUM CHLORIDE 0.9% 1,000 ML BAG ONE (19:09)
[2017-04-29] MEDS ORDERED: DEXTROSE/WATER 1 500ML.BAG with DOPamine DRIP 800 MG IV SCH (21:45)
[2017-04-29] MEDS: METOPROLOL TARTRATE 25 MG TAB PO SCH (22:24)
--- NOTE | 2017-04-29 22:34 | P.CONS ---
History of Present Illness - Reason for Consult Consult date: 04/29/17 - Chief Complaint abdominal pain - History of Present Illness 81-year-old female presents to emergency center with a one-week history of worsening status. She has a known history of constipation and obstipation that plagued her over some time. The one week before coming hospital she was a long-standing constipation increasing abdominal pain. [facility] because she become weak and confused and was no longer able to care for herself. She is upset was admitted. She's been evaluated and had a computed tomography scan shows evidence of diverticulitis with colitis is also evidence of sepsis. She's been seen by surgery and is being followed closely. No distinct surgical plan at this time. She has taken ALLERGIES and with at the infectious diseases was requested regarding a back therapy regarding her significant abdominal sepsis. Atrial is not present at this time will help with some history. They do relate that there is been significant troubles with constipation over time and this is not new. They're not clear that she's had fevers chills or rigors. This certainly rapidly declining status. Review of Systems ROS unobtainable: due to mental status Past Medical History Past Medical History: Coronary Artery Disease (CAD), CVA/TIA, Hyperlipidemia, Hypertension Additional Past Medical History / Comment(s): bowel obstruction History of Any Multi-Drug Resistant Organisms: MRSA Year Discovered:: unable to recall MDRO Source:: right leg Past Surgical History: Adenoidectomy, Appendectomy, Cholecystectomy, Heart Catheterization With Stent, Hysterectomy, Joint Replacement, Tonsillectomy Additional Past Surgical History / Comment(s): bilateral knee surgery Past Anesthesia/Blood Transfusion Reactions: No Reported Reaction Date of Last Stent Placement:: Unknown Past Psychological History: No Psychological Hx Reported Additional Psychological History / Comment(s): and lives with the and the family home. No experience or travel. No animal exposures. Four adult children two are very involved. no current tobacco use Smoking Status: Former smoker Past Alcohol Use History: Rare Past Drug Use History: None Reported - Past Family History Father History Unknown: Yes Family Medical History: Coronary Artery Disease (CAD) Mother History Unknown: Yes Family Medical History: No Reported History Brother(s) History Unknown: Yes Family Medical History: No Reported History Sister(s) History Unknown: Yes Daughter(s) History Unknown: Yes Family Medical History: No Reported History Son(s) Family Medical History: Coronary Artery Disease (CAD) Medications and Allergies Home Medications and Allergies Comment(s): Current Medications Parenteral Vitamin Supplement 10 ml/ Thiamine HCl 100 mg/Folic Acid 1 mg/ Sodium Chloride 1,011.2 mls @ 100 mls/hr IV .BY DURATION [facility] Last Admin: 04/29/17 19:09 Dose: 100 mls/hr Sodium Chloride (Saline 0.9%) 1,000 mls @ 100 mls/hr IV .BY DURATION [facility] Meropenem 500 mg/ Sodium (Chloride) 50 mls @ 100 mls/hr IVPB Q8HR [facility] Last Admin: 04/29/17 18:50 Dose: 100 mls/hr Dopamine HCl/Dextrose 800 mg/ (IV Solution) 500 mls @ 6.86 mls/hr IV .Q24H [facility] PRN Reason: 2.5 MCG/KG/MIN Last Admin: 04/29/17 21:56 Dose: 6.86 mls/hr Levothyroxine Sodium (Synthroid) 50 mcg PO DAILY@0630 [facility] Lisinopril (Zestril) 10 mg PO DAILY [facility] Metoprolol Tartrate (Lopressor) 25 mg PO BID [facility] Last Admin: 04/29/17 22:24 Dose: 25 mg Miscellaneous Information (Rx Info: Iv Contrast Was Given) 1 each MISCELLANE DAILY PRN PRN Reason: Per Protocol Stop: 04/30/17 11:13 Morphine Sulfate (Morphine Sulfate (Inj)) 4 mg IVP Q4HR PRN PRN Reason: Severe Pain Last Admin: 04/29/17 17:18 Dose: 4 mg Naloxone HCl (Narcan) 0.2 mg IV Q2M PRN PRN Reason: Opioid Reversal Ondansetron HCl (Zofran) 4 mg IVP Q6HR PRN PRN Reason: Nausea And Vomiting Last Admin: 04/28/17 18:02 Dose: 4 mg Pantoprazole Sodium (Protonix) 40 mg IV DAILY [facility] Last Admin: 04/29/17 08:38 Dose: 40 mg Home Medications Medication Instructions Recorded Confirmed Type Aspirin 81 mg PO DAILY 04/28/17 04/28/17 History Atorvastatin [Lipitor] 20 mg PO HS 04/28/17 04/28/17 History Clopidogrel [Plavix] 75 mg PO DAILY 04/28/17 04/28/17 History Lisinopril-Hctz 20-12.5 mg 1 tab PO DAILY 04/28/17 04/28/17 History [Zestoretic 20-12.5] Metoprolol Tartrate [Lopressor] 50 mg PO BID 04/28/17 04/28/17 History Multivitamins, Thera [Multivitamin 1 tab PO DAILY 04/28/17 04/28/17 History (formulary)] Allergies Allergy/AdvReac Type Severity Reaction Status Date / Time Penicillins Allergy Rash/Hives Verified 04/28/17 11:06 Physical Exam Vitals: Vital Signs Temp Pulse Pulse Resp BP BP Pulse Ox 04/29/17 21:04 92 L 04/29/17 21:00 100 12 101/58 93 L 04/29/17 20:00 98.2 F 105 H 20 133/62 94 L 04/29/17 19:00 99 12 126/56 93 L 04/29/17 18:00 100 11 L 103/53 95 04/29/17 17:00 102 H 29 H 131/64 90 L 04/29/17 16:00 97.4 F L 96 13 133/65 97 04/29/17 15:43 96 16 120/66 04/29/17 15:00 93 13 149/61 96 04/29/17 14:00 95 12 136/50 93 L 04/29/17 13:00 92 15 87/48 96 04/29/17 12:00 98.1 F 89 14 135/78 96 04/29/17 11:00 97.2 F L 84 13 156/57 95 04/29/17 10:30 87 12 142/57 96 04/29/17 10:00 87 13 148/61 94 L 04/29/17 09:30 85 14 169/62 92 L 04/29/17 09:00 84 19 144/68 95 04/29/17 08:30 87 21 155/71 93 L 04/29/17 08:00 84 13 170/54 92 L 04/29/17 07:30 90 20 149/67 93 L 04/29/17 07:00 82 15 150/62 96 04/29/17 06:30 87 20 139/65 94 L 04/29/17 06:00 87 21 133/66 92 L 04/29/17 05:30 86 15 149/57 94 L 04/29/17 05:00 84 16 147/69 95 04/29/17 04:30 87 30 H 138/73 100 04/29/17 04:00 98.6 F 82 16 142/73 99 04/29/17 03:30 81 17 134/58 96 04/29/17 03:00 84 19 125/55 96 04/29/17 02:30 79 17 142/58 96 04/29/17 02:00 82 22 140/69 95 04/29/17 01:30 79 15 150/80 98 04/29/17 01:00 78 19 134/56 98 04/29/17 00:30 76 17 134/63 99 04/29/17 00:00 97.8 F 79 16 122/62 95 04/28/17 23:30 78 16 97/56 99 04/28/17 23:00 95 20 146/72 100 04/28/17 22:30 107 H 20 127/60 99 Intake and Output 04/29/17 04/29/17 04/29/17 06:59 14:59 22:59 Intake Total 2850 2075 895 Output Total 424 290 511 Balance 2426 1785 384 Intake: IV 2850 2075 895 Mvi, Adult No.4 with Vit 200 K 10 ml Thiamine 100 mg Folic Acid 1 mg In Sodium Chloride 0.9% 1,000 ml @ 100 mls/hr IV .BY DURATION [facility] Rx#: [id number] Phytonadione 10 mg In 100 325 Sodium Chloride 0.9% 50 ml @ 100 mls/hr IVPB ONCE [facility] Rx#:[id number] Sodium Chloride 0.9% 1, 750 875 270 000 ml @ 125 mls/hr IV . Q8H [facility] Rx#:[id number] Sodium Chloride 0.9% 1, 2000 1000 000 ml @ 999 mls/hr IV . Q1H1M [facility] Rx#:[id number] metroNIDAZOLE-NS PMX 500 100 100 100 mg In Saline 1 100ml.bag @ 100 mls/hr IVPB Q8HR [facility] Rx#:[id number] Output: Gastric Drainage 300 100 400 Urine 124 190 111 Other: Voiding Method Indwelling Catheter Indwelling Catheter Indwelling Catheter Weight 73.2 kg 73.2 kg Patient Weight 04/30/17 06:59 Weight 73.2 kg HEENT: Anicteric conjunctiva are pink and moist nasal mucosa grossly intact without significant lesions, there is no thrush. Oral cavity though is dryIr Neck: The neck is supple without significant lymphadenopathy or thyromegaly. Lungs: Good bilateral air entry without significant crackles or wheezing. There is no significant bronchial sounds. There is no egophony or dullness. Heart: Regular rate and rhythm with an audible S1-S2, no S3 no S4. There is no significant murmur click or rub, PMI was nondisplaced. Abdomen: The abdomen has evidence of distention. There are few bowel sounds. It is quite tender to evaluation. Evaluation of the abdomen is about the only time the patient has any significant interactions with the observer. She does Moan when the abdomen is palpated. There is evidence of some rebound. It is not rigid. No palpable organomegaly. Extremities: The upper extremities have excellent pulses they are symmetric, no significant petechiae or telangiectasia. No splinter hemorrhages were noted. The lower extremities are free from significant edema. The peripheral pulses were 2+ and symmetric. Neuro: She is arousable. She however has no significant amount of speech at this time. The only time in the eye-opening occurs when the abdomen was palpated. Results CBC & Chem 7: 04/29/17 03:30 04/29/17 03:30 Labs: Abnormal Lab Results - Last 24 Hours (Table) 04/28/17 04/28/17 04/29/17 Range/Units 23:20 23:20 03:30 WBC 22.0 H (3.8-10.6) k/uL Hgb 16.1 H (11.4-16.0) gm/dL Hct 51.0 H (34.0-46.0) % Neutrophils # (Manual) 20.40 H (1.3-7.7) k/uL Lymphocytes # (Manual) 0.44 L (1.0-4.8) k/uL Metamyelocytes # (Man) 0.88 H (0) k/uL PT (9.0-12.0) sec INR (<1.2) APTT (22.0-30.0) sec Chloride (98-107) mmol/L Carbon Dioxide (22-30) mmol/L BUN (7-17) mg/dL Creatinine (0.52-1.04) mg/dL Plasma Lactic Acid Davi 2.7 H* (0.7-2.0) mmol/L Calcium (8.4-10.2) mg/dL Phosphorus (2.5-4.5) mg/dL AST (14-36) U/L Troponin I 0.384 H* (0.000-0.034) ng/mL Total Protein (6.3-8.2) g/dL Albumin (3.5-5.0) g/dL Carcinoembryonic Ag (0.0-5.0) ng/mL 04/29/17 04/29/17 04/29/17 Range/Units 03:30 03:30 14:35 WBC (3.8-10.6) k/uL Hgb (11.4-16.0) gm/dL Hct (34.0-46.0) % Neutrophils # (Manual) (1.3-7.7) k/uL Lymphocytes # (Manual) (1.0-4.8) k/uL Metamyelocytes # (Man) (0) k/uL PT 17.4 H (9.0-12.0) sec INR 1.8 H (<1.2) APTT 40.9 H (22.0-30.0) sec Chloride 113 H (98-107) mmol/L Carbon Dioxide 14 L (22-30) mmol/L BUN 46 H (7-17) mg/dL Creatinine 2.90 H (0.52-1.04) mg/dL Plasma Lactic Acid Davi (0.7-2.0) mmol/L Calcium 7.2 L (8.4-10.2) mg/dL Phosphorus 4.6 H (2.5-4.5) mg/dL AST 73 H (14-36) U/L Troponin I (0.000-0.034) ng/mL Total Protein 4.6 L (6.3-8.2) g/dL Albumin 2.5 L (3.5-5.0) g/dL Carcinoembryonic Ag 181.0 H (0.0-5.0) ng/mL Microbiology - Last 24 Hours (Table) 04/28/17 13:25 Blood Culture - Preliminary Blood No Growth after 24 hours 04/28/17 10:40 Urine Culture - Final Urine,Catheterized Laboratory Results WBC 22.0 k/uL (3.8-10.6) H 04/29/17 03:30 RBC 5.32 m/uL (3.80-5.40) 04/29/17 03:30 Hgb 16.1 gm/dL (11.4-16.0) H 04/29/17 03:30 Hct 51.0 % (34.0-46.0) H 04/29/17 03:30 MCV 95.7 fL (80.0-100.0) 04/29/17 03:30 MCH 30.3 pg (25.0-35.0) 04/29/17 03:30 MCHC 31.6 g/dL (31.0-37.0) 04/29/17 03:30 RDW 14.9 % (11.5-15.5) 04/29/17 03:30 Plt Count 248 k/uL (150-450) 04/29/17 03:30 Neutrophils % (Manual) 39 % 04/29/17 03:30 Band Neutrophils % 54 % 04/29/17 03:30 Lymphocytes % (Manual) 2 % 04/29/17 03:30 Monocytes % (Manual) 2 % 04/29/17 03:30 Metamyelocytes % 4 % 04/29/17 03:30 Myelocytes % 1 % 04/28/17 10:38 Neutrophils # (Manual) 20.40 k/uL (1.3-7.7) H 04/29/17 03:30 Lymphocytes # (Manual) 0.44 k/uL (1.0-4.8) L 04/29/17 03:30 Monocytes # (Manual) 0.44 k/uL (0-1.0) 04/29/17 03:30 Metamyelocytes # (Man) 0.88 k/uL (0) H 04/29/17 03:30 Myelocytes # (Manual) 0.31 k/uL (0) H 04/28/17 10:38 Nucleated RBCs 0 /100 WBC (0-0) 04/29/17 03:30 Manual Slide Review Performed 04/28/17 10:38 Toxic Granulation Present 04/28/17 10:38 Polychromasia Present 04/29/17 03:30 Poikilocytosis (manual Present 04/29/17 03:30 Anisocytosis (manual) Present 04/29/17 03:30 PT 17.4 sec (9.0-12.0) H 04/29/17 03:30 INR 1.8 (<1.2) H 04/29/17 03:30 APTT 40.9 sec (22.0-30.0) H 04/29/17 03:30 Sodium 139 mmol/L (137-145) 04/29/17 03:30 Potassium 4.7 mmol/L (3.5-5.1) 04/29/17 03:30 Chloride 113 mmol/L (98-107) H 04/29/17 03:30 Carbon Dioxide 14 mmol/L (22-30) L 04/29/17 03:30 Anion Gap 12 mmol/L 04/29/17 03:30 BUN 46 mg/dL (7-17) H 04/29/17 03:30 Creatinine 2.90 mg/dL (0.52-1.04) H 04/29/17 03:30 Est GFR (MDRD) Af Amer 19 (>60 ml/min/1.73 sqM) 04/29/17 03:30 Est GFR (MDRD) Non-Af 16 (>60 ml/min/1.73 sqM) 04/29/17 03:30 Glucose 89 mg/dL (74-99) 04/29/17 03:30 POC Glucose (mg/dL) 97 mg/dL (75-99) 04/28/17 21:42 POC Glu Auto Body Repair Technician ID Jazmyn Carmen 04/28/17 21:42 Lactic Ac Sepsis Rflx Y 04/29/17 00:07 Plasma Lactic Acid Davi 1.6 mmol/L (0.7-2.0) 04/29/17 03:30 Calcium 7.2 mg/dL (8.4-10.2) L 04/29/17 03:30 Phosphorus 4.6 mg/dL (2.5-4.5) H 04/29/17 03:30 Magnesium 1.8 mg/dL (1.6-2.3) 04/29/17 03:30 Total Bilirubin 0.7 mg/dL (0.2-1.3) 04/29/17 03:30 AST 73 U/L (14-36) H 04/29/17 03:30 ALT 52 U/L (9-52) 04/29/17 03:30 Alkaline Phosphatase 68 U/L (38-126) 04/29/17 03:30 Total Creatine Kinase 94 U/L (30-135) 04/28/17 10:38 CK-MB (CK-2) 5.1 ng/mL (0.0-2.4) H* 04/28/17 10:38 CK-MB (CK-2) Rel Index 5.4 04/28/17 10:38 Troponin I 0.384 ng/mL (0.000-0.034) H* 04/28/17 23:20 NT-Pro-B Natriuret Pep 3110 pg/mL 04/29/17 03:30 Total Protein 4.6 g/dL (6.3-8.2) L 04/29/17 03:30 Albumin 2.5 g/dL (3.5-5.0) L 04/29/17 03:30 Carcinoembryonic Ag 181.0 ng/mL (0.0-5.0) H 04/29/17 14:35 TSH 8.280 mIU/L (0.465-4.680) H 04/28/17 10:38 Urine Color Yellow 04/28/17 10:40 Urine Appearance Clear (Clear) 04/28/17 10:40 Urine pH 6.0 (5.0-8.0) 04/28/17 10:40 Ur Specific Rembert 1.013 (1.001-1.035) 04/28/17 10:40 Urine Protein 1+ (Negative) H 04/28/17 10:40 Urine Glucose (UA) Negative (Negative) 04/28/17 10:40 Urine Ketones Negative (Negative) 04/28/17 10:40 Urine Blood Negative (Negative) 04/28/17 10:40 Urine Nitrite Negative (Negative) 04/28/17 10:40 Urine Bilirubin Negative (Negative) 04/28/17 10:40 Urine Urobilinogen <2.0 mg/dL (<2.0) 04/28/17 10:40 Ur Leukocyte Esterase Negative (Negative) 04/28/17 10:40 Urine RBC 1 /hpf (0-5) 04/28/17 10:40 Urine WBC <1 /hpf (0-5) 04/28/17 10:40 Ur Squamous Epith Cells 1 /hpf (0-4) 04/28/17 10:40 Gastric Occult Blood Positive (Negative) 04/28/17 18:50 Stool Occult Blood Positive (Negative) H 04/28/17 16:33 Microbiology 04/28/17 13:25 Blood Blood Culture - Preliminary No Growth after 24 hours 04/28/17 10:40 Urine,Catheterized Urine Culture - Final Assessment and Plan (1) Abdominal pain Status: Acute (2) Sepsis Narrative/Plan: 81-year-old female presents to Hospital with a one-week history of increasing symptoms. Having significant abdominal pain and altered mental status. At admission his hypotension, acute renal failure and lactic acidosis all part of her severe sepsis. She recently had some hypotension responded well to fluid resuscitation. Her extensive lactic acidosis also has responded well to fluid resuscitation. There is concerned that part of the lactic acidosis could be in the basis of some ischemic colitis given the extensive disease seen on her CAT scan. She been followed by surgery at this point in time. Has had some improvement. Antibiotic therapy is altered to meropenem for enhance coverage of intra-abdominal pathogens potential concerns to Levaquin resistant pathogens given her prior history. We'll continue ongoing supportive care at this point in time. Cultures are in process. Surgery is closely following. If she is not rapidly improve may need abdominal exploration. The extensive leukocytosis from her sepsis as is the acute renal failure. Status: Acute
[2017-04-30] MEDS: MORPHINE SULFATE 4 MG/ML SYRINGE IVP PRN ×2 (02:45→09:40)
[2017-04-30 04:50] LABS: CHCM 31.9; HCT 48.9 % (34.0-46.0); HDW 2.82; HGB 15.4 gm/dL (11.4-16.0); Immature Gran Flag Marked; MCH 30.9 pg (25.0-35.0); MCHC 31.5 g/dL (31.0-37.0); MCV 98.1 fL (80.0-100.0); Mean Platelet Volume 8.2; RBC 4.98 m/uL (3.80-5.40); RDW 15.1 % (11.5-15.5); WBC 16.1 k/uL (3.8-10.6); WBC (Perox) 16.03
[2017-04-30 04:51] LABS: INR 1.6 (<1.2); Partial Thromboplastin Time 37.6 sec (22.0-30.0); Prothrombin Time 15.5 sec (9.0-12.0)
[2017-04-30 04:56] LABS: Calcium 6.8 mg/dL (8.4-10.2); Magnesium 1.8 mg/dL (1.6-2.3)
[2017-04-30 05:39] LABS: Add Differential Manual Differential
[2017-04-30] MEDS: 1: MVI, ADULT NO.4 WITH VIT K 10 ML, THIAMINE 100 MG, FOLIC ACID 1 MG in SODIUM CHLORIDE IV SCH ×4 (05:44)
[2017-04-30] MEDS: LEVOTHYROXINE 50 MCG TAB PO SCH (05:44)
[2017-04-30 05:47] LABS: Band Neutrophils % 43 %; Manual Review Performed; Nucleated Red Blood Cells 0 /100 WBC (0-0); Total Cells Counted 200
[2017-04-30 05:50] LABS: Potassium 5.3 mmol/L (3.5-5.1)
--- NOTE | 2017-04-30 08:07 | XR ---
EXAMINATION TYPE: XR chest 1V portable DATE OF EXAM: 04/30/2017 HISTORY: follow up. REFERENCE: Previous study dated 04/29/2017. FINDINGS: The patient is NG tube remains in place, unchanged in appearance. There is left basilar airspace disease. There is minimal atelectasis at the right lung base. There is a left-sided effusion. The overall appearance of the chest has not changed significantly. The heart is not enlarged. IMPRESSION: NO SIGNIFICANT INTERVAL CHANGE IN THE APPEARANCE OF THE CHEST.
[2017-04-30] MEDS ORDERED: LISINOPRIL 10 MG TAB PO SCH (09:00)
[2017-04-30] MEDS: WATER FOR INJECTION, STERILE 1,000 ML with SODIUM ACETATE 150 MEQ IV SCH ×6 (09:23→23:57)
[2017-04-30] MEDS: METOPROLOL TARTRATE 25 MG TAB PO SCH ×2 (09:23→21:20)
[2017-04-30] MEDS: MEROPENEM 500 MG in SODIUM CHLORIDE 0.9% 50 ML IVPB SCH ×2 (09:23→20:53)
[2017-04-30] MEDS: PANTOPRAZOLE 40 MG/10 ML VIAL IV SCH (09:24)
--- NOTE | 2017-04-30 09:48 | P.PN ---
Subjective Patient is seen for follow-up for acute kidney injury. She was admitted to the hospital with abdominal pain and severe constipation. Patient had been hypotensive with systolic blood pressure in this 50s on initial admission. Patient has received large amount of fluid resuscitation with about 6 L so far. Her urine output dropped yesterday she did respond for a brief period of time and to Lasix but then her urine output remained at about 5-10 mL overnight. Patient remains on IV fluids at 100 mL an hour. Her blood pressure now is about 1 30 mmHg systolic. According to nursing staff she has been more confused. She has been moaning and complaining of pain. For which she is maintained on morphine every 4 hours. Patient is being followed by surgery and the so far there is no decision to take her to or yet. Patient has also been acidotic with CO2 of 11 this morning she was started on sodium acetate drip since there is remains shortage of sodium bicarb. Potassium was high at 5.3 with serum creatinine now at about 4. Patient's family will be talked to regarding need for potential dialysis most likely tomorrow if she does not improve her urine output. Objective - Vital Signs Vital signs: Vital Signs Temp 98.0 F 04/30/17 04:00 Pulse 92 04/30/17 07:00 Resp 14 04/30/17 07:00 BP 127/57 04/30/17 07:00 Pulse Ox 95 04/30/17 07:00 Intake & Output 04/29/17 04/30/17 04/30/17 18:59 06:59 18:59 Intake Total 2425 1625 110 Output Total 775 209 8 Balance 1650 1416 102 Weight 73.2 kg 74 kg Intake: IV 2425 1625 110 Meropenem 500 mg In 100 Sodium Chloride 0.9% 50 ml @ 100 mls/hr IVPB Q8HR [facility] Rx#:[id number] Mvi, Adult No.4 with Vit 1000 K 10 ml Thiamine 100 mg Folic Acid 1 mg In Sodium Chloride 0.9% 1,000 ml @ 100 mls/hr IV .BY DURATION [facility] Rx#: [id number] Phytonadione 10 mg In 325 100 Sodium Chloride 0.9% 50 ml @ 100 mls/hr IVPB ONCE [facility] Rx#:[id number] Sodium Chloride 0.9% 1, 100 100 000 ml @ 100 mls/hr IV . BY DURATION [facility] Rx#: [id number] Sodium Chloride 0.9% 1, 1000 225 10 000 ml @ 125 mls/hr IV . Q8H [facility] Rx#:[id number] Sodium Chloride 0.9% 1, 1000 000 ml @ 999 mls/hr IV . Q1H1M [facility] Rx#:[id number] metroNIDAZOLE-NS PMX 500 100 100 mg In Saline 1 100ml.bag @ 100 mls/hr IVPB Q8HR [facility] Rx#:[id number] Output: Gastric Drainage 500 100 Urine 275 109 8 Other: Voiding Method Indwelling Catheter Indwelling Catheter - Exam On examination patient is currently laying in bed she is asleep but, on arousing patient starts to more. She's complaining of pain in her belly. Blood pressure is 127/57 Heart rate 92/m Examination of the heart S1 and S2 Examination lungs decreased breath sounds bases Examination of the abdomen reveals it to be distended soft with tenderness. Examination lower extremities shows no evidence of edema. Patient is moving all 4 extremities She has been confused. - Labs CBC & Chem 7: 04/30/17 04:11 04/30/17 04:11 Labs: Abnormal Lab Results - Last 24 Hours (Table) 04/29/17 04/29/17 04/30/17 Range/Units 03:30 14:35 04:11 WBC 16.1 H (3.8-10.6) k/uL Hct 48.9 H (34.0-46.0) % Neutrophils # (Manual) 15.10 H (1.3-7.7) k/uL Lymphocytes # (Manual) 0.81 L (1.0-4.8) k/uL PT 17.4 H (9.0-12.0) sec INR 1.8 H (<1.2) APTT 40.9 H (22.0-30.0) sec Potassium (3.5-5.1) mmol/L Chloride (98-107) mmol/L Carbon Dioxide (22-30) mmol/L BUN (7-17) mg/dL Creatinine (0.52-1.04) mg/dL Calcium (8.4-10.2) mg/dL Phosphorus (2.5-4.5) mg/dL Carcinoembryonic Ag 181.0 H (0.0-5.0) ng/mL 04/30/17 04/30/17 Range/Units 04:11 04:28 WBC (3.8-10.6) k/uL Hct (34.0-46.0) % Neutrophils # (Manual) (1.3-7.7) k/uL Lymphocytes # (Manual) (1.0-4.8) k/uL PT 15.5 H (9.0-12.0) sec INR 1.6 H (<1.2) APTT 37.6 H (22.0-30.0) sec Potassium 5.3 H (3.5-5.1) mmol/L Chloride 116 H (98-107) mmol/L Carbon Dioxide 11 L (22-30) mmol/L BUN 66 H (7-17) mg/dL Creatinine 4.00 H (0.52-1.04) mg/dL Calcium 6.8 L (8.4-10.2) mg/dL Phosphorus 6.0 H (2.5-4.5) mg/dL Carcinoembryonic Ag (0.0-5.0) ng/mL Microbiology - Last 24 Hours (Table) 04/28/17 13:25 Blood Culture - Preliminary Blood No Growth after 24 hours 04/28/17 10:40 Urine Culture - Final Urine,Catheterized Assessment and Plan Plan: Assessment 1. Acute kidney injury ATN secondary to hypotension and hypoperfusion currently oliguric. No response to Lasix. Patient will need to start dialysis. We will discuss this further with her when he comes to the hospital. I believe we can wait until tomorrow unless her labs are worse this evening. 2. Abdominal pain with moderate fecal stasis noted on the CAT scan of the abdomen 3. Hypertension blood pressure had been low currently staying at about 127-1 30 mmHg systolic. 4. Non-gap metabolic acidosis secondary to worsening renal failure started on sodium acetate drip. Expect improvement once dialysis is started. 5. History of previous TIA. Next Plan Start sodium acetate drip repeat labs this evening and we will plan for dialysis tomorrow unless her urine output improves overnight.
[2017-04-30] MEDS: FUROSEMIDE 250 MG in SODIUM CHLORIDE 0.9% 225 ML IVP SCH (10:11)
--- NOTE | 2017-04-30 10:27 | CONS ---
CONSULTATION REASON FOR CONSULT: Renal failure. DATE OF CONSULTATION: Today, 04/29/2017 HISTORY OF PRESENT ILLNESS: Patient is an 81-year-old female who was admitted to the hospital with complaints of abdominal pain. She had not had a bowel movement for more than a week. The patient was very hypotensive when she first came into the ER with blood pressure in the 50s for systolic. According to her , I have a documented blood pressure of 94/64. CT scan of the abdomen post admission showed partial mid to distal small bowel obstruction. There is moderate diffuse colonic fecal stasis. Serum creatinine was at 2.67 mg/dL. It has gone up to 2.9. The patient has received IV fluids about 5 L of fluid bolus. She was given Lasix yesterday as her urine output had dropped, but she did not respond in fact after fluid administration urine output had picked up slightly to about 30 to 40 mL an hour. There is no prior history of kidney diseases according to her . The patient was on MARYLOU inhibitors prior to admission. Currently, she has an NG tube in place and she is being followed by surgery with consideration for possible surgery for bowel obstruction. PAST MEDICAL HISTORY: Coronary artery disease, history of CVA/TIA, hyperlipidemia, hypertension, previous bowel obstruction. PAST SURGICAL HISTORY: Adenoidectomy, appendectomy, cholecystectomy, cardiac catheterization, hysterectomy, knee surgeries, the patient had arthroplasty and tonsillectomy. SOCIAL HISTORY: Negative for smoking, drug abuse or alcohol abuse. MEDICATIONS: Medications at home included Zestoretic, metoprolol, multivitamins, Plavix, Lipitor, aspirin. ALLERGIES: Allergies include PENICILLIN. PHYSICAL EXAMINATION: On examination, patient is currently lying in bed. She is not in any acute distress. She is comfortable. Blood pressure is 131/64, heart rate 102 per minute. Patient is afebrile. EXAMINATION OF THE HEART S1, S2. EXAMINATION OF THE LUNGS: Bilateral breath sounds are heard. Abdomen is soft, distended with minimal tenderness noted. Examination lower extremity shows no significant edema. ENTRY LEVEL ACCOUNTING CLERK exam shows patient is moving all 4 extremities. LABS: Labs show sodium of 139, potassium 4.7, chloride chloride 113, CO2 is 14, BUN 46, serum creatinine 2.9, and lactic acid was 2.7. Troponin 0.384. ASSESSMENT: 1. Acute kidney injury secondary to hypoperfusion, hypotension resulting in ATN. Urine output is currently borderline. I will repeat another dose of Lasix as patient seems to have had quite a bit of IV fluid boluses up to 6 L thus far. She is not hypotensive currently. 2. Bowel obstruction with severe constipation and moderate fecal stasis noted on the CAT scan. 3. Metabolic acidosis, non gap, multifactorial associated with renal failure as well as elevated lactic acid level, which would ideally cause gap acidosis. 4. History of coronary artery disease. 5. History of cerebrovascular accident/transient ischemic attack. 6. Right adnexal mass noted on CAT scan. PLAN: Plan is Lasix x1. Continue to avoid nephrotoxic agents. Continue IV fluids, empiric antibiotics, and repeat labs in a.m. Thank you for this consultation. We will continue to follow the patient with you during her hospitalization. GLENDA / BERNARDN: [id number] /
[2017-04-30] MEDS ORDERED: fentaNYL (PF) 50 MCG/ML 2 ML AMP ONE (10:29)
[2017-04-30] MEDS ORDERED: ETOMIDATE 2 MG/ML 10 ML VIAL ONE (10:29)
[2017-04-30] MEDS ORDERED: LIDOCAINE 1% INJ 10MG/ML (20 ML MDV) ONE (10:29)
[2017-04-30] MEDS ORDERED: PHENYLEPHRINE-0.9% NACL SYG 1 MG/10 ML SYRINGE ONE (10:29)
[2017-04-30] MEDS ORDERED: ROCURONIUM BROMIDE 10 MG/ML 10 ML VIAL IV ONE (10:29)
[2017-04-30] MEDS ORDERED: IV FLUID CONTINUATION 1,000 ML IV ONE (10:30)
[2017-04-30] MEDS ORDERED: SODIUM CHLORIDE 0.9% 500 ML IV ONE ×2 (10:40→11:42)
[2017-04-30] MEDS ORDERED: LACTATED RINGERS 1,000 ML IV ONE ×2 (11:41→12:23)
[2017-04-30] MEDS ORDERED: NALOXONE 0.4 MG/ML 1 ML VIAL IV PRN (12:23)
[2017-04-30] MEDS ORDERED: ACETAMINOPHEN TAB 325 MG TAB PO PRN (12:23)
[2017-04-30] MEDS ORDERED: METOCLOPRAMIDE 5 MG/ML 2 ML VIAL IVP PRN (12:23)
[2017-04-30] MEDS ORDERED: HYDROmorphone 1 MG/ML 1 ML SYRINGE IVP PRN ×2 (12:23→15:45)
[2017-04-30] MEDS ORDERED: PROPOFOL 1,000 MG/100 ML VIAL IV ONE (12:38)
--- NOTE | 2017-04-30 12:50 | P.PN ---
Subjective Principal diagnosis: Acute colitis and possible abdominal sepsis possible ischemic colitis. This is a very pleasant 81-year-old female patient who follows with Dr. Ministerio Key as her primary care physician. 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 He presented to the emergency room this morning after her found her quite weak and lethargic and confused. He states yesterday she appeared fine however he had to leave the house for several hours and upon his return at 7:30 PM she was already in bed. He asked if she was okay she stated she just wanted to rest. He did feel she had not been eating and drinking much the last several days. Early this morning she became quite confused and lethargic, complaining of severe abdominal discomfort and EMS was called. Her initial labs reveal a white count of 31.3, hemoglobin 17.0, neutrophils 27.8, metamyelocytes 1.25, myelocytes 0.31. Her INR was 1.8. BUN 35 with a creatinine of 2.67. Her lactic acid is 8.7. Troponin 0.201. A computed tomography scan of the abdomen and pelvis revealed moderate to severe colitis involving the left colon. There is enteritis involving small bowel loops in the right upper to mid abdomen. Infectious, inflammatory and ischemic etiologies are within the differential. There is a partial or developing mid to distal small bowel obstruction. Her stomach is distended. There is a fair amount of colonic fecal stasis noted as well. Wondering cecum expected. She has been a initiated on Levaquin and metronidazole. 3 L of 0.9 normal saline have been infused. She currently has a 0.9 normal saline at 100 MLS. She is seen today in the emergency room. She is awake. She is slow to respond. A poor historian. She is maintaining O2 saturations in the upper 90s on 2 L/m per nasal cannula. She is currently afebrile. Hemodynamically stable with improved blood pressure post fluid resuscitation. Patient was reevaluated today on 04/29/2017, continues to have abdominal distention, abdominal pain, no bowel movements since the last few days. Hemodynamics-stover, patient responded to fluid boluses, and did not require any pressors. Urine output remains marginal, hence more fluid boluses will be given , and the patient did not respond well to a high dose of Lasix given last night. Denies any shortness of breath, no cough, no wheezing, but continues to have some abdominal discomfort and tenderness. Continues to have leukocytosis with WBC count of 22.0, however improved compared to the leukocytosis on admission of 25.2. Lactic acid is down to 1.6 today from 2.7 on admission. ProBNP level is elevated, however the chest x-ray showed no evidence of congestive heart failure, there is mostly by basilar atelectasis, and a small left-sided pleural effusion. Patient was reevaluated today on 04/30/2017, overnight, the patient has taken a significant downhill course, and now she is almost anuric, complaining of significant abdominal pain which has worsened significantly since yesterday. Immediately after I evaluated the patient, I called Dr. Temple who was covering for Dr. Amor, and I felt that the patient is experiencing acute abdomen. He responded to my call and he arrived to the ICU within minutes, and again as evaluated the patient, he discussed plans to take the patient to the OR for immediate exploratory laparotomy. According to the , patient was seen by Dr. Amor yesterday, and she promised him to come back and reevaluate and make a decision whether to take her to surgery or not. But he did not hear from Dr. Amor again in the afternoon. I also discussed the patient's condition with the lining sewer on the case, and we both felt that the patient is heading towards hemodialysis. Patient is developing significant acute kidney injury, and she is almost anuric, plans are being made for possible dialysis starting either today or tomorrow morning. Labs were reviewed, WBC count is 16.1, hemoglobin is 15.4 patient continues to show significant metabolic acidosis, and worsening renal failure. She is presently on sodium acetate for her underlying acidosis. Shortly after a evaluated the patient, family came to bedside, and myself and Dr. Temple explained to the family the need for immediate exploratory laparotomy, and they understood. There are also well aware of the fact that the patient is a high surgical risk. Objective - Vital Signs Vital signs: Vital Signs Temp 99 F 04/30/17 08:00 Pulse 95 04/30/17 10:00 Resp 20 04/30/17 10:00 BP 136/57 04/30/17 11:00 Pulse Ox 95 04/30/17 10:00 Intake & Output 04/29/17 04/30/17 04/30/17 18:59 06:59 18:59 Intake Total 2425 1625 2110 Output Total 775 209 181 Balance 9763 9096 9153 Weight 73.2 kg 74 kg Intake: IV 2425 1625 2110 Meropenem 500 mg In 100 50 Sodium Chloride 0.9% 50 ml @ 100 mls/hr IVPB Q8HR NADINE Rx#:[id number] Mvi, Adult No.4 with Vit 1000 K 10 ml Thiamine 100 mg Folic Acid 1 mg In Sodium Chloride 0.9% 1,000 ml @ 100 mls/hr IV .BY DURATION NADINE Rx#: [id number] Phytonadione 10 mg In 325 100 Sodium Chloride 0.9% 50 ml @ 100 mls/hr IVPB ONCE STA Rx#:[id number] Sodium Acetate @ 100 mls/ 250 hr IV Sodium Chloride 0.9% 1, 100 100 000 ml @ 100 mls/hr IV . BY DURATION NADINE Rx#: [id number] Sodium Chloride 0.9% 1, 1000 225 10 000 ml @ 125 mls/hr IV . Q8H NADINE Rx#:[id number] Sodium Chloride 0.9% 1, 1000 000 ml @ 999 mls/hr IV . Q1H1M STA Rx#:[id number] metroNIDAZOLE-NS PMX 500 100 100 mg In Saline 1 100ml.bag @ 100 mls/hr IVPB Q8HR NADINE Rx#:[id number] Output: Gastric Drainage 500 100 Urine 275 109 131 Estimated Blood Loss 50 Other: Voiding Method Indwelling Catheter Indwelling Catheter Indwelling Catheter # Bowel Movements 0 - Exam GENERAL EXAM: Confused, lethargic, arousable, but she moans and groans with pain. HEAD: Normocephalic. EYES: Normal reaction of pupils, equal size. NOSE: Clear with pink turbinates. THROAT: No erythema or exudates. NECK: No masses, no JVD. CHEST: No chest wall deformity. LUNGS: Diminished breath sounds at the bases, crackles noted at the bases. CVS: S1 and S2 normal with no audible murmurs, regular rhythm. ABDOMEN: Worsening distention was noted, extremely tender, positive rebound, positive guarding, and no bowel sounds. Extremities: There is no peripheral edema. No clubbing, no cyanosis. Peripheral pulses are intact. - Labs CBC & Chem 7: 04/30/17 04:11 04/30/17 04:11 Labs: Abnormal Lab Results - Last 24 Hours (Table) 04/29/17 04/30/17 04/30/17 Range/Units 14:35 04:11 04:11 WBC 16.1 H (3.8-10.6) k/uL Hct 48.9 H (34.0-46.0) % Neutrophils # (Manual) 15.10 H (1.3-7.7) k/uL Lymphocytes # (Manual) 0.81 L (1.0-4.8) k/uL PT (9.0-12.0) sec INR (<1.2) APTT (22.0-30.0) sec Potassium 5.3 H (3.5-5.1) mmol/L Chloride 116 H (98-107) mmol/L Carbon Dioxide 11 L (22-30) mmol/L BUN 66 H (7-17) mg/dL Creatinine 4.00 H (0.52-1.04) mg/dL Calcium 6.8 L (8.4-10.2) mg/dL Phosphorus 6.0 H (2.5-4.5) mg/dL Carcinoembryonic Ag 181.0 H (0.0-5.0) ng/mL 04/30/17 Range/Units 04:28 WBC (3.8-10.6) k/uL Hct (34.0-46.0) % Neutrophils # (Manual) (1.3-7.7) k/uL Lymphocytes # (Manual) (1.0-4.8) k/uL PT 15.5 H (9.0-12.0) sec INR 1.6 H (<1.2) APTT 37.6 H (22.0-30.0) sec Potassium (3.5-5.1) mmol/L Chloride (98-107) mmol/L Carbon Dioxide (22-30) mmol/L BUN (7-17) mg/dL Creatinine (0.52-1.04) mg/dL Calcium (8.4-10.2) mg/dL Phosphorus (2.5-4.5) mg/dL Carcinoembryonic Ag (0.0-5.0) ng/mL Microbiology - Last 24 Hours (Table) 04/28/17 13:25 Blood Culture - Preliminary Blood No Growth after 24 hours 04/28/17 10:40 Urine Culture - Final Urine,Catheterized Assessment and Plan Plan: #1 Severe sepsis secondary to moderate to severe colitis involving the left colon along with enteritis involving the small bowels in the right upper to mid abdomen. However considering the findings on 04/30/2017, I felt that clearly that the patient is developing an acute surgical abdomen, immediate call was given to Dr. Temple who was covering for Dr. Amor, he responded to my call, and he came in immediately to the ICU and recommended immediate surgical exploration. Patient will be sent to the or and a very short of time. Family was made aware of the findings. And made aware of the surgical plans. #2 no evidence of septic shock, since the patient so far has not required any pressors. She did require however multiple fluid boluses almost 5 L so far. #3 Partial or developing mid to distal small bowel obstruction with distended stomach and diffuse colonic fecal stasis. Possible bowel ischemia is in the differential. #4 Leukocytosis with bandemia secondary to above. #5 Lactic acidosis secondary to above. #6 Acute renal failure secondary to sepsis, hypotension and dehydration. This is clearly a picture of acute kidney injury, and acute tubular necrosis. #7 Coagulopathy secondary to sepsis, INR 1.8. #8 Troponin leak. #9 History of hypertension. #10 Hyperlipidemia. #11 Coronary artery disease status post coronary stent placement 3. Currently on Plavix and aspirin. #12 History of CVA/TIA. Recommendation: Case was discussed with the surgeon supervisor electronic coils, he responded immediately, and he recommended immediate expiratory laparotomy. Patient will be going to the OR shortly, discussed her condition with the nursing staff, family, including her , discussed her condition with the lining sewer, the surgeon, and with the admitting physician Dr. White. Prognosis is definitely guarded, but clearly at this point, benefits of surgery outweigh the risks. Dr. Fry is planning to initiate plans for dialysis. Patient will come back on mechanical ventilation, and she will be kept on mechanical ventilation until further notice. Depending on her clinical status. Critical care time is 45 minutes. Time with Patient: Greater than 30
--- NOTE | 2017-04-30 12:53 | XR ---
EXAMINATION TYPE: XR chest 2V DATE OF EXAM: 04/30/2017 HISTORY: Line placement. REFERENCE: Previous study dated 04/30/2017. FINDINGS: The patient has been intubated. ET tube is in good position with its tip 5.1 cm in the rolando na. The patient is NG tube remains in place. There is continuing left basilar airspace disease. There is a small left effusion. There is mild incr eased opacity at the right lung base. This may also represent some atelectasis or early consolidation . The heart is not enlarged. IMPRESSION: 1. SATISFACTORY ET TUBE PLACEMENT. 2. NO SIGNIFICANT INTERVAL CHANGE IN THE APPEARANCE OF THE CHEST.
[2017-04-30] MEDS: NOREPINEPHRIN 16 MG-0.9%NS PMX 16 MG/250 ML ML IV SCH (13:00)
[2017-04-30] MEDS ORDERED: NOREPINEPHRIN 4 MG-0.9% NS PMX 4 MG/250 ML ML IV ONE (13:01)
--- NOTE | 2017-04-30 13:04 | P.PN ---
Progress Note - Text I am covering for Dr. Amor. I saw the patient at approximately 8:30 this morning. I been called by Dr. antony. He was concerned with the patient has had persistent abdominal pain since yesterday without surgical intervention. Patient had been signed out to me by Dr. Amor as a colitis patient. The patient is currently is not making any urine.. The patient was examined. She had acute abdominal tenderness. She had rebound tenderness. Her pain was out of proportion to the exam. I discussed with the patient's family I believe that she has ischemic bowel. I recommended urgent exploratory laparotomy. I discussed the risk of colostomy and bowel resection with the patient. The patient will undergo urgent surgical expiration this morning.
[2017-04-30] MEDS: AMIODARONE 450 MG in DEXTROSE 5% IN WATER 250 ML IV SCH ×4 (13:45→23:58)
--- NOTE | 2017-04-30 14:15 | P.OP ---
Date of Procedure: 04/30/17 Preoperative Diagnosis: Ischemic bowel Postoperative Diagnosis: The skin of bowel with necrosis of left colon and sigmoid colon Procedure(s) Performed: Exploratory laparotomy Left colectomy with end colostomy Takedown of splenic flexure Implants: Anesthesia: SANTOS Surgeon: Tuan Temple Estimated Blood Loss (ml): 100 Pathology: other (Left and sigmoid colon) Condition: stable Disposition: PACU Indications for Procedure: Operative Findings: Description of Procedure: The patient's placed on the operative table in the supine position. She received general anesthesia. Her abdomen was prepped and draped usual fashion. The abdomen was entered through a midline incision. There was some serosanguineous ascites. The Bookwalter tract placed a wound. The abdomen was explored. The left colon and; appeared to be necrotic. The colon was black in color. At this point the transverse colon was visualized. In the suitable spot of the transverse colon was found and the bowel transected. The splenic flexure was taken down with sharp dissection and the LigaSure device. The left colon was mobilized and divided with line of Toldt.. And then the sigmoid colon was reflected medially. The rectum was transected approximately using the GI stapler. Using the LigaSure device the mesentery the bowel was divided. The specimen sent to pathology. The abdomen was irrigated. A colostomy brought out the left upper quadrant. The fascia was closed with looped #1 PDS suture. The skin was closed shiva. The colostomy then matured with 3-0 Vicryl suture. Patient was sent to the ICU in guarded condition.
[2017-04-30 14:24] VITALS: BP 123/80
--- NOTE | 2017-04-30 14:35 | P.PN ---
Progress Note - Text Patient is in the ICU she just had laparotomy and apparently had resection of ischemic bowel. Remains hypotensive has multiorgan failure including renal failure prognosis is very guarded she developed atrial fibrillation postoperatively and dry and she is already on large dose of Levophed. I'm going to start treat her with IV amiodarone and and if blood pressure tolerates consider to venous Cardizem On exam heart rate is 130 bpm irregularly irregular blood pressure is 80/60 respirators 18 chest exam is diminished air entry at the bases heart exam vessel second heart sounds are regular rhythm abdomen abdomen is status post surgery Labs have been reviewed Assessment and plan Acute onset atrial fibrillation with rapid ventricular rate Severe hypotension Acute renal failure Ischemic bowel status post surgery Continue supportive care prognosis guarded
[2017-04-30] MEDS ORDERED: DEXTROSE 5% IN WATER 100 ML with AMIODARONE 150 MG IV ONE (15:00)
[2017-04-30 15:30] LABS: ABG HCO3 12 mmol/L (21-25); ABG PCO2 43 mmHg (35-45); ABG PH 7.07 (7.35-7.45); ABG PO2 146 mmHg (83-108); ABG TCO2 13 mmol/L (19-24)
[2017-04-30 15:31] LABS: ABG Base Excess -16.4 mmol/L
[2017-04-30] MEDS: SODIUM BICARB 8.4% 50 ML SYR (1 MEQ/ML) IV SCH ×3 (15:39→20:51)
--- NOTE | 2017-04-30 16:04 | P.PN ---
Subjective This is a pleasant 81-year-old female patient of Dr. Ministerio Key. She has a history of hypertension and CAD with prior stent placement, previous TIA less than 10 years ago, follows with Dr. Fazal Sepulveda cardiology, and was stable on his last visit 04/06/2017 without any evidence of CHF or valvular heart disease or unstable angina according to the . Patient has been evaluated in the emergency room after the found her to be weak and moaning and groaning and increasing;y confused, patient did not complain anything significant prior to this however on further inquiry, patient has had increasing abdominal pain and abdominal distention, anorexia diminished appetite nausea and vomiting without any fever, last bowel movement was 1 week prior to admission. 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 Patient does not have any baseline colonoscopy In the emergency room patient was seen and was noted to have a CAT scan of the abdomen and pelvis showing moderate severe colitis involving the left colon enteritis involving small bowel loops in the right upper to mid abdomen a partial or developing mid to distal small bowel obstruction cannot be ruled out , distended stomach is noted there is moderate diffuse colonic fecal stasis, wondering cecum suspected. At 3.2 cm ovarian cyst right side which needs to be worked up as an outpatient. There is moderate to severe wall thickening with scattered diverticula in the left colon surrounding ill-defined fluid and fat stranding present. Severe calcified plaque of the aorta extending into branch vessels small fluid noted in the left paracolic gutter and surrounding the liver anteriorly Laterally. Patient was septic on ER presentation with a wbc of 31,000, INR 1.8, creatinine of 2.7, lactic acid of 8.7 TSH is elevated at 8, troponin elevated at 0.2 urinalysis negative except for proteinuria 04/29: Patient currently remains in ICU, cytosis and lactic acidosis is improving , patient currently is in a G-tube and is nothing by mouth for bowel rest, rectal suppositories for fecal impaction, T-max of 98.6 , IV antibiotics Levaquin and Flagyl, hemodynamically stable. Patient's morning groaning with pain patient remains to be alert however occasionally lethargic. No plan for any surgical intervention, this time we would only resume Plavix aspirin once general surgery is beyond the window for surgical intervention 04/30: Discussed with Dr. Trent today, patient will be undergoing exploratory laparotomy with Dr. Temple in next few minutes, for suspected ischemic bowel. The bedside, patient is still lethargic morning groaning, with distended and tender abdomen ,IV pain medication was given Objective - Vital Signs Vital signs: Vital Signs Temp 99 F 04/30/17 08:00 Pulse 95 04/30/17 10:00 Resp 20 04/30/17 10:00 BP 136/57 04/30/17 11:00 Pulse Ox 95 04/30/17 10:00 Intake & Output 04/29/17 04/30/17 04/30/17 18:59 06:59 18:59 Intake Total 2425 1625 2110 Output Total 775 209 181 Balance 1650 1416 1929 Weight 73.2 kg 74 kg Intake: IV 2425 1625 2110 Meropenem 500 mg In 100 50 Sodium Chloride 0.9% 50 ml @ 100 mls/hr IVPB Q8HR NADINE Rx#:[id number] Mvi, Adult No.4 with Vit 1000 K 10 ml Thiamine 100 mg Folic Acid 1 mg In Sodium Chloride 0.9% 1,000 ml @ 100 mls/hr IV .BY DURATION NADINE Rx#: [id number] Phytonadione 10 mg In 325 100 Sodium Chloride 0.9% 50 ml @ 100 mls/hr IVPB ONCE STA Rx#:[id number] Sodium Acetate @ 100 mls/ 250 hr IV Sodium Chloride 0.9% 1, 100 100 000 ml @ 100 mls/hr IV . BY DURATION NADINE Rx#: [id number] Sodium Chloride 0.9% 1, 1000 225 10 000 ml @ 125 mls/hr IV . Q8H NADINE Rx#:[id number] Sodium Chloride 0.9% 1, 1000 000 ml @ 999 mls/hr IV . Q1H1M STA Rx#:[id number] metroNIDAZOLE-NS PMX 500 100 100 mg In Saline 1 100ml.bag @ 100 mls/hr IVPB Q8HR NADINE Rx#:[id number] Output: Gastric Drainage 500 100 Urine 275 109 131 Estimated Blood Loss 50 Other: Voiding Method Indwelling Catheter Indwelling Catheter Indwelling Catheter # Bowel Movements 0 - Constitutional General appearance: Present: mild distress - EENT Eyes: Present: anicteric sclerae, EOMI, PERRLA, dentition normal - Respiratory Respiratory: bilateral: CTA - Gastrointestinal General gastrointestinal: Present: absent bowel sounds, distended, tenderness - Integumentary Integumentary: Present: decreased turgor, normal - Labs CBC & Chem 7: 04/30/17 04:11 04/30/17 04:11 Labs: Abnormal Lab Results - Last 24 Hours (Table) 04/29/17 04/30/17 04/30/17 Range/Units 14:35 04:11 04:11 WBC 16.1 H (3.8-10.6) k/uL Hct 48.9 H (34.0-46.0) % Neutrophils # (Manual) 15.10 H (1.3-7.7) k/uL Lymphocytes # (Manual) 0.81 L (1.0-4.8) k/uL PT (9.0-12.0) sec INR (<1.2) APTT (22.0-30.0) sec Potassium 5.3 H (3.5-5.1) mmol/L Chloride 116 H (98-107) mmol/L Carbon Dioxide 11 L (22-30) mmol/L BUN 66 H (7-17) mg/dL Creatinine 4.00 H (0.52-1.04) mg/dL Calcium 6.8 L (8.4-10.2) mg/dL Phosphorus 6.0 H (2.5-4.5) mg/dL Carcinoembryonic Ag 181.0 H (0.0-5.0) ng/mL 04/30/17 Range/Units 04:28 WBC (3.8-10.6) k/uL Hct (34.0-46.0) % Neutrophils # (Manual) (1.3-7.7) k/uL Lymphocytes # (Manual) (1.0-4.8) k/uL PT 15.5 H (9.0-12.0) sec INR 1.6 H (<1.2) APTT 37.6 H (22.0-30.0) sec Potassium (3.5-5.1) mmol/L Chloride (98-107) mmol/L Carbon Dioxide (22-30) mmol/L BUN (7-17) mg/dL Creatinine (0.52-1.04) mg/dL Calcium (8.4-10.2) mg/dL Phosphorus (2.5-4.5) mg/dL Carcinoembryonic Ag (0.0-5.0) ng/mL Microbiology - Last 24 Hours (Table) 04/28/17 13:25 Blood Culture - Preliminary Blood No Growth after 24 hours 04/28/17 10:40 Urine Culture - Final Urine,Catheterized Assessment and Plan Plan: 1. Sepsis with SIRS secondary to significant colitis with fecal burden no evidence of peritonitis at this time, with a partial to early developing distal small bowel obstruction is suspected to CT, patient is dehydrated with acute kidney failure on ER presentation, patient is admitted to ICU with general consult to Dr. Butt general surgery, enamel finisher Dr. Trent, and patient will be started on IV Flagyl and IV Levaquin. Patient has penicillin ALLERGY. Patient is made nothing by mouth, patient might need an NG tube. Patient will be closely monitored, and no plans for acute surgical intervention at this time should be a class III anesthesia risk should there be immediate surgery needed carrying higher risk mortality. Patient is to undergo emergent exploratory laparotomy on 04/30/[address] Temple 2. Hemodynamic instability with hypotension, secondary to septic shock fluid boluses are currently being given, IV fluids and avoidance of any nephrotoxic agents, to the primary condition which is bowel resection IV antibiotics on board next lisinopril on hold secondary to hypotension thiazide on hold 3. Acute kidney failure, unknown baseline. Renal injury most likely secondary to ATN rather than interstitial nephritis, no recent antibiotics prior to this admission no recent NSAID use 4. Elevated troponin most likely secondary to sepsis, patient is on Plavix which is on hold secondary to possible surgical intervention over the next 48 hours. Cardiology consult, patient would have troponins BNP bio-markers followed closely 5. CAD with 3 cardiac stents follows with Dr. Fazal Sepulveda cardiology patient is on Plavix which is on hold until surgical emergency situationi s stabilized continue on Lopressor 50 mg twice a day with parameters 6. Hypothyroidism IV l-thyroxine 25 g daily, no previous thyroid supplementation prior to admission 7. Metabolic encephalopathy secondary to sepsis, 8. Coagulopathy secondary to sepsis or signs of cutaneous bleeding at this time , monitor for ongoing GI losses vitamin K given patient is not on any oral anticoagulants 9. Hyperlipidemia on Lipitor on hold currently nothing by mouth 10. Right ovarian cyst unusual for age, CA [address] Amor 10. Lactic acidosis secondary to sepsis 11. GI prophylaxis IV Protonix 12. DVT prophylaxis with Lovenox 13 Moderate protein malnutrition secondary to prolonged diminished appetite Prognosis guarded
[2017-04-30 18:44] LABS: Calcium 5.3 mg/dL (8.4-10.2)
[2017-04-30] MEDS ORDERED: ALBUMIN HUMAN 25% 50 ML in EMPTY BAG 1 BAG IVPB ONE (19:48)
[2017-04-30 19:54] LABS: ABG HCO3 12 mmol/L (21-25); ABG PCO2 34 mmHg (35-45); ABG PH 7.17 (7.35-7.45); ABG PO2 132 mmHg (83-108); ABG TCO2 13 mmol/L (19-24)
[2017-04-30 19:55] LABS: ABG Base Excess -15.1 mmol/L
--- NOTE | 2017-04-30 19:59 | P.PN ---
Subjective Principal diagnosis: Abdominal sepsis 81-year-old female presents to emergency center with a one-week history of worsening status. She has a known history of constipation and obstipation that plagued her over some time. The one week before coming hospital she was a long-standing constipation increasing abdominal pain. [place] [facility] because she become weak and confused and was no longer able to care for herself. She is upset was admitted. She's been evaluated and had a computed tomography scan shows evidence of diverticulitis with colitis is also evidence of sepsis. She's been seen by surgery and is being followed closely. No distinct surgical plan at this time. She has taken ALLERGIES and with at the infectious diseases was requested regarding a back therapy regarding her significant abdominal sepsis. Atrial is not present at this time will help with some history. They do relate that there is been significant troubles with constipation over time and this is not new. They're not clear that she's had fevers chills or rigors. This certainly rapidly declining status. The patient has been reevaluated by surgery today. With her worsening status. She was taken to the operating room. At that point in time a large segment of necrotic bowel was found and it was resected. Colostomy is in place. She is postoperative she remains hypotensive requiring vasopressor therapy. His also had some fluid resuscitation. However seems to be and uric is being followed by nephrology possible need for hemodialysis in the near future. Objective - Vital Signs Vital signs: Vital Signs Temp 97.6 F 04/30/17 12:20 Pulse 114 H 04/30/17 19:00 Resp 19 04/30/17 19:00 BP 123/80 04/30/17 14:10 Pulse Ox 94 L 04/30/17 18:00 Intake & Output 04/30/17 04/30/17 05/01/17 06:59 18:59 06:59 Intake Total 1625 4620 310.093 Output Total 209 401 70 Balance 1416 4219 240.093 Weight 74 kg Intake: IV 1625 4620 100 Meropenem 500 mg In 100 50 Sodium Chloride 0.9% 50 ml @ 100 mls/hr IVPB Q8HR [facility] Rx#:[id number] Mvi, Adult No.4 with Vit 1000 K 10 ml Thiamine 100 mg Folic Acid 1 mg In Sodium Chloride 0.9% 1,000 ml @ 100 mls/hr IV .BY DURATION NADINE Rx#: [id number] Phytonadione 10 mg In 100 Sodium Chloride 0.9% 50 ml @ 100 mls/hr IVPB ONCE STA Rx#:[id number] Sodium Acetate @ 100 mls/ 750 100 hr IV Sodium Chloride 0.9% 1, 100 100 000 ml @ 100 mls/hr IV . BY DURATION NADINE Rx#: [id number] Sodium Chloride 0.9% 1, 225 2020 000 ml @ 125 mls/hr IV . Q8H [facility] Rx#:[id number] metroNIDAZOLE-NS PMX 500 100 mg In Saline 1 100ml.bag @ 100 mls/hr IVPB Q8HR [facility] Rx#:[id number] Intake, IV Titration 210.093 Amount Amiodarone 450 mg In 179.426 Dextrose 5% in Water 250 ml @ 1 MG/MIN 33.33 mls/ hr IV .Q7H31M [facility] Rx#: [id number] Norepinephrin 16 mg-0.9% 30.667 Ns Pmx 16 mg In 250 ml @ Titrate IV .Q0M [facility] Rx#: [id number] Output: Gastric Drainage 100 Drainage 220 70 Right Lower Abdomen 220 70 Urine 109 131 0 Estimated Blood Loss 50 Other: Voiding Method Indwelling Catheter Indwelling Catheter # Bowel Movements 0 ABP, PAP, CO, CI - Last Documented Arterial Blood Pressure 154/61 - Exam HEENT: Anicteric conjunctiva are pink and moist nasal mucosa grossly intact without significant lesions, there is no thrush seen around the endotracheal tube Neck: The neck is supple without significant lymphadenopathy or thyromegaly. Lungs: Good bilateral air entry without significant crackles or wheezing. There is no significant bronchial sounds. There is no egophony or dullness. Heart: Regular rate and rhythm with an audible S1-S2, no S3 no S4. There is no significant murmur click or rub, PMI was nondisplaced. Abdomen: The abdomen is postoperative. The ostomy is in place. SHEILA drain is in place. Surgical dressing is in place. Abdomen is less distended. Extremities: The upper extremities have excellent pulses they are symmetric, no significant petechiae or telangiectasia. No splinter hemorrhages were noted. The lower extremities are free from significant edema. The peripheral pulses were 2+ and symmetric. Neuro: Intubated sedated mechanically ventilated - Labs CBC & Chem 7: 04/30/17 04:11 04/30/17 18:15 Labs: Abnormal Lab Results - Last 24 Hours (Table) 04/30/17 04/30/17 04/30/17 Range/Units 04:11 04:11 04:28 WBC 16.1 H (3.8-10.6) k/uL Hct 48.9 H (34.0-46.0) % Neutrophils # (Manual) 15.10 H (1.3-7.7) k/uL Lymphocytes # (Manual) 0.81 L (1.0-4.8) k/uL PT 15.5 H (9.0-12.0) sec INR 1.6 H (<1.2) APTT 37.6 H (22.0-30.0) sec ABG pH (7.35-7.45) ABG pCO2 (35-45) mmHg ABG pO2 (83-108) mmHg ABG HCO3 (21-25) mmol/L ABG Total CO2 (19-24) mmol/L ABG O2 Saturation (94-97) % Potassium 5.3 H (3.5-5.1) mmol/L Chloride 116 H (98-107) mmol/L Carbon Dioxide 11 L (22-30) mmol/L BUN 66 H (7-17) mg/dL Creatinine 4.00 H (0.52-1.04) mg/dL Glucose (74-99) mg/dL Calcium 6.8 L (8.4-10.2) mg/dL Phosphorus 6.0 H (2.5-4.5) mg/dL 04/30/17 04/30/17 04/30/17 Range/Units 15:22 18:15 19:46 WBC (3.8-10.6) k/uL Hct (34.0-46.0) % Neutrophils # (Manual) (1.3-7.7) k/uL Lymphocytes # (Manual) (1.0-4.8) k/uL PT (9.0-12.0) sec INR (<1.2) APTT (22.0-30.0) sec ABG pH 7.07 L* 7.17 L* (7.35-7.45) ABG pCO2 34 L (35-45) mmHg ABG pO2 146 H 132 H (83-108) mmHg ABG HCO3 12 L 12 L (21-25) mmol/L ABG Total CO2 13 L 13 L (19-24) mmol/L ABG O2 Saturation 98.0 H 98.0 H (94-97) % Potassium (3.5-5.1) mmol/L Chloride 115 H (98-107) mmol/L Carbon Dioxide 11 L (22-30) mmol/L BUN 66 H (7-17) mg/dL Creatinine 4.54 H (0.52-1.04) mg/dL Glucose 117 H (74-99) mg/dL Calcium 5.3 L* (8.4-10.2) mg/dL Phosphorus (2.5-4.5) mg/dL Microbiology - Last 24 Hours (Table) 04/28/17 13:25 Blood Culture - Preliminary Blood No Growth after 48 hours Laboratory Results WBC 16.1 k/uL (3.8-10.6) H 04/30/17 04:11 RBC 4.98 m/uL (3.80-5.40) 04/30/17 04:11 Hgb 15.4 gm/dL (11.4-16.0) 04/30/17 04:11 Hct 48.9 % (34.0-46.0) H 04/30/17 04:11 MCV 98.1 fL (80.0-100.0) 04/30/17 04:11 MCH 30.9 pg (25.0-35.0) 04/30/17 04:11 MCHC 31.5 g/dL (31.0-37.0) 04/30/17 04:11 RDW 15.1 % (11.5-15.5) 04/30/17 04:11 Plt Count 214 k/uL (150-450) 04/30/17 04:11 Neutrophils % (Manual) 51 % 04/30/17 04:11 Band Neutrophils % 43 % 04/30/17 04:11 Lymphocytes % (Manual) 5 % 04/30/17 04:11 Monocytes % (Manual) 1 % 04/30/17 04:11 Metamyelocytes % 4 % 04/29/17 03:30 Myelocytes % 1 % 04/28/17 10:38 Neutrophils # (Manual) 15.10 k/uL (1.3-7.7) H 04/30/17 04:11 Lymphocytes # (Manual) 0.81 k/uL (1.0-4.8) L 04/30/17 04:11 Monocytes # (Manual) 0.16 k/uL (0-1.0) 04/30/17 04:11 Metamyelocytes # (Man) 0.88 k/uL (0) H 04/29/17 03:30 Myelocytes # (Manual) 0.31 k/uL (0) H 04/28/17 10:38 Nucleated RBCs 0 /100 WBC (0-0) 04/30/17 04:11 Manual Slide Review Performed 04/30/17 04:11 Toxic Granulation Present 04/28/17 10:38 Polychromasia Present 04/29/17 03:30 Poikilocytosis (manual Present 04/30/17 04:11 Anisocytosis (manual) Present 04/30/17 04:11 PT 15.5 sec (9.0-12.0) H 04/30/17 04:28 INR 1.6 (<1.2) H 04/30/17 04:28 APTT 37.6 sec (22.0-30.0) H 04/30/17 04:28 Sample Site agness 04/30/17 19:46 ABG pH 7.17 (7.35-7.45) L* 04/30/17 19:46 ABG pCO2 34 mmHg (35-45) L 04/30/17 19:46 ABG pO2 132 mmHg (83-108) H 04/30/17 19:46 ABG HCO3 12 mmol/L (21-25) L 04/30/17 19:46 ABG Total CO2 13 mmol/L (19-24) L 04/30/17 19:46 ABG O2 Saturation 98.0 % (94-97) H 04/30/17 19:46 ABG Base Excess -15.1 mmol/L 04/30/17 19:46 FiO2 80 % 04/30/17 19:46 Sodium 143 mmol/L (137-145) 04/30/17 18:15 Potassium 5.0 mmol/L (3.5-5.1) 04/30/17 18:15 Chloride 115 mmol/L (98-107) H 04/30/17 18:15 Carbon Dioxide 11 mmol/L (22-30) L 04/30/17 18:15 Anion Gap 17 mmol/L 04/30/17 18:15 BUN 66 mg/dL (7-17) H 04/30/17 18:15 Creatinine 4.54 mg/dL (0.52-1.04) H 04/30/17 18:15 Est GFR (MDRD) Af Amer 11 (>60 ml/min/1.73 sqM) 04/30/17 18:15 Est GFR (MDRD) Non-Af 9 (>60 ml/min/1.73 sqM) 04/30/17 18:15 Glucose 117 mg/dL (74-99) H 04/30/17 18:15 POC Glucose (mg/dL) 97 mg/dL (75-99) 04/28/17 21:42 POC Glu Fuse Cup Expander ID Carmen Eldridge 04/28/17 21:42 Lactic Ac Sepsis Rflx Y 04/29/17 00:07 Plasma Lactic Acid Davi 1.6 mmol/L (0.7-2.0) 04/29/17 03:30 Calcium 5.3 mg/dL (8.4-10.2) L* 04/30/17 18:15 Phosphorus 6.0 mg/dL (2.5-4.5) H 04/30/17 04:11 Magnesium 1.8 mg/dL (1.6-2.3) 04/30/17 04:11 Total Bilirubin 0.7 mg/dL (0.2-1.3) 04/29/17 03:30 AST 73 U/L (14-36) H 04/29/17 03:30 ALT 52 U/L (9-52) 04/29/17 03:30 Alkaline Phosphatase 68 U/L (38-126) 04/29/17 03:30 Total Creatine Kinase 94 U/L (30-135) 04/28/17 10:38 CK-MB (CK-2) 5.1 ng/mL (0.0-2.4) H* 04/28/17 10:38 CK-MB (CK-2) Rel Index 5.4 04/28/17 10:38 Troponin I 0.384 ng/mL (0.000-0.034) H* 04/28/17 23:20 NT-Pro-B Natriuret Pep 3110 pg/mL 04/29/17 03:30 Total Protein 4.6 g/dL (6.3-8.2) L 04/29/17 03:30 Albumin 2.5 g/dL (3.5-5.0) L 04/29/17 03:30 Carcinoembryonic Ag 181.0 ng/mL (0.0-5.0) H 04/29/17 14:35 Vitamin B12 822 pg/mL 04/30/17 04:11 TSH 8.280 mIU/L (0.465-4.680) H 04/28/17 10:38 Urine Color Yellow 04/28/17 10:40 Urine Appearance Clear (Clear) 04/28/17 10:40 Urine pH 6.0 (5.0-8.0) 04/28/17 10:40 Ur Specific Melvin 1.013 (1.001-1.035) 04/28/17 10:40 Urine Protein 1+ (Negative) H 04/28/17 10:40 Urine Glucose (UA) Negative (Negative) 04/28/17 10:40 Urine Ketones Negative (Negative) 04/28/17 10:40 Urine Blood Negative (Negative) 04/28/17 10:40 Urine Nitrite Negative (Negative) 04/28/17 10:40 Urine Bilirubin Negative (Negative) 04/28/17 10:40 Urine Urobilinogen <2.0 mg/dL (<2.0) 04/28/17 10:40 Ur Leukocyte Esterase Negative (Negative) 04/28/17 10:40 Urine RBC 1 /hpf (0-5) 04/28/17 10:40 Urine WBC <1 /hpf (0-5) 04/28/17 10:40 Ur Squamous Epith Cells 1 /hpf (0-4) 04/28/17 10:40 Gastric Occult Blood Positive (Negative) 04/28/17 18:50 Stool Occult Blood Positive (Negative) H 04/28/17 16:33 Microbiology 04/28/17 13:25 Blood Blood Culture - Preliminary No Growth after 48 hours 04/28/17 10:40 Urine,Catheterized Urine Culture - Final Assessment and Plan (1) Abdominal pain Status: Acute (2) Sepsis Narrative/Plan: 81-year-old female presents to Hospital with a one-week history of increasing symptoms. Having significant abdominal pain and altered mental status. At admission his hypotension, acute renal failure and lactic acidosis all part of her severe sepsis. She recently had some hypotension responded well to fluid resuscitation. Her extensive lactic acidosis also has responded well to fluid resuscitation. There is concerned that part of the lactic acidosis could be in the basis of some ischemic colitis given the extensive disease seen on her CAT scan. She been followed by surgery at this point in time. Has had some improvement. Antibiotic therapy is altered to meropenem for enhance coverage of intra-abdominal pathogens potential concerns to Levaquin resistant pathogens given her prior history. We'll continue ongoing supportive care at this point in time. Cultures are in process. As noted she's been taking the operating room and the large segment of necrotic bowel is been removed and ostomies in place. Patient is now recovering from surgery remains hypotensive and anuric. Remains on vasopressor therapy and seen by nephrology with potential need for hemodialysis in the near future. The extensive leukocytosis from her sepsis as is the acute renal failure. The case is discussed with the son and . Prognosis is poor. Status: Acute
--- NOTE | 2017-04-30 20:11 | XR ---
EXAMINATION TYPE: XR chest 1V portable DATE OF EXAM: 04/30/2017 COMPARISON: Prior chest x-ray 04/30/2017 at earlier time HISTORY: Intubated TECHNIQUE: Single frontal view of the chest is obtained. FINDINGS: Endotracheal tube, NG tube, right jugular central venous catheter are stable and overlying appropriate positions. There are overlying cardiac leads. Biapical pleural caps are noted. There is blunting of the costophrenic angles. Heart size is stable. Patient is rotated. IMPRESSION: Similar to previous exam. Bilateral pleural effusions and associated atelectasis, correl ate to exclude pneumonia.
[2017-04-30] MEDS ORDERED: CALCIUM GLUCONATE 1,000 MG in SODIUM CHLORIDE 0.9% 100 ML IVPB ONE (20:23)
[2017-04-30] MEDS ORDERED: SODIUM CHLORIDE 0.9% 1,000 ML IV ONE (20:25)
[2017-04-30] MEDS: SODIUM CHLORIDE 0.9% 99 ML with VASOPRESSIN 20 UNIT IV SCH ×2 (20:27)
[2017-04-30] MEDS: PROPOFOL 1,000 MG/100 ML VIAL IV SCH (20:30)
[2017-04-30] MEDS: CHLORHEXIDINE GLUCONATE 15 ML CUP MUCOUS MEM SCH (21:20)
[2017-04-30] MEDS: HYDROCORTISONE SUCCINATE 100 MG/2 ML VIAL IV SCH (21:20)
[2017-05-01] MEDS: NOREPINEPHRIN 16 MG-0.9%NS PMX 16 MG/250 ML ML IV SCH ×3 (00:06→15:47)
[2017-05-01 04:36] LABS: CH 30.2; CHCM 32.1; HCT 35.4 % (34.0-46.0); HDW 3.01; Immature Gran Flag Marked; MCH 30.8 pg (25.0-35.0); MCHC 32.5 g/dL (31.0-37.0); MCV 94.8 fL (80.0-100.0); Mean Platelet Volume 8.2; RBC 3.73 m/uL (3.80-5.40); RDW 14.7 % (11.5-15.5); WBC (Perox) 9.96
[2017-05-01 04:40] LABS: HGB 11.5 gm/dL (11.4-16.0)
[2017-05-01 04:45] LABS: INR 1.6 (<1.2)
[2017-05-01 04:46] LABS: Ionized Calcium 3.4 mg/dL (4.5-5.3)
[2017-05-01 04:52] LABS: Phosphorous 7.3 mg/dL (2.5-4.5); Total Bilirubin 0.9 mg/dL (0.2-1.3); Total Protein 3.4 g/dL (6.3-8.2)
[2017-05-01 04:54] LABS: Calcium 5.5 mg/dL (8.4-10.2)
[2017-05-01] MEDS: PROPOFOL 1,000 MG/100 ML VIAL IV SCH ×2 (05:10→20:35)
[2017-05-01] MEDS: LEVOTHYROXINE 50 MCG TAB PO SCH (05:31)
[2017-05-01] MEDS ORDERED: CALCIUM GLUCONATE 1,000 MG in SODIUM CHLORIDE 0.9% 100 ML IVPB ONE ×2 (06:00→23:49)
[2017-05-01 06:05] LABS: Magnesium 1.9 mg/dL (1.6-2.3)
[2017-05-01] MEDS: FUROSEMIDE 250 MG in SODIUM CHLORIDE 0.9% 225 ML IVP SCH (06:58)
[2017-05-01 07:20] LABS: Add Differential Manual Differential
--- NOTE | 2017-05-01 07:29 | XR ---
EXAMINATION TYPE: XR chest 1V portable DATE OF EXAM: 05/01/2017 HISTORY: Tube placement. REFERENCE: Previous study dated 04/30/2017. FINDINGS: The patient is ET tube and NG tube as well as the right internal jugular catheter remain in place, unchanged in appearance. The lungs are overinflated. There are bilateral effusions, greater on the left than the right. There is left basilar airspace dis ease. The overall appearance is very similar to the previous study. IMPRESSION: NO SIGNIFICANT INTERVAL CHANGE IN THE APPEARANCE OF THE CHEST.
[2017-05-01 07:30] LABS: Band Neutrophils % 29 %; Metamyelocytes % 1 %; Nucleated Red Blood Cells 1 /100 WBC (0-0); Total Cells Counted 200; WBC 9.4 k/uL (3.8-10.6)
[2017-05-01 07:33] LABS: Crenated RBC Present; Toxic Vacuolation Present
[2017-05-01 07:35] LABS: Polychromasia Present
[2017-05-01] MEDS: AMIODARONE 450 MG in DEXTROSE 5% IN WATER 250 ML IV SCH ×4 (07:54→15:37)
[2017-05-01] MEDS: SODIUM CHLORIDE 0.9% 99 ML with VASOPRESSIN 20 UNIT IV SCH ×4 (07:54→17:45)
[2017-05-01] MEDS: HYDROCORTISONE SUCCINATE 100 MG/2 ML VIAL IV SCH ×2 (07:55→15:49)
[2017-05-01] MEDS: CHLORHEXIDINE GLUCONATE 15 ML CUP MUCOUS MEM SCH ×2 (07:55→20:34)
[2017-05-01] MEDS: METOPROLOL TARTRATE 25 MG TAB PO SCH ×2 (07:56→20:33)
[2017-05-01] MEDS: PANTOPRAZOLE 40 MG/10 ML VIAL IV SCH (07:56)
[2017-05-01] MEDS: MEROPENEM 500 MG in SODIUM CHLORIDE 0.9% 50 ML IVPB SCH ×2 (07:57→20:34)
[2017-05-01] MEDS ORDERED: SODIUM BICARB 8.4% 50 ML SYR (1 MEQ/ML) IV STA (08:11)
[2017-05-01] MEDS ORDERED: ALBUMIN HUMAN 25% 50 ML in EMPTY BAG 1 BAG IVPB ONE (08:45)
[2017-05-01 08:59] LABS: ABG Base Excess -14.4 mmol/L; ABG HCO3 12 mmol/L (21-25); ABG Oxygen Saturation 97.8 % (94-97); ABG PCO2 29 mmHg (35-45); ABG PH 7.23 (7.35-7.45); ABG PO2 118 mmHg (83-108); ABG TCO2 13 mmol/L (19-24)
[2017-05-01] MEDS ORDERED: ENOXAPARIN 40 MG/0.4 ML SYRINGE SQ SCH (09:00)
[2017-05-01] MEDS ORDERED: PANTOPRAZOLE 40 MG/10 ML VIAL IV SCH (09:00)
--- NOTE | 2017-05-01 09:03 | P.PN ---
Subjective Principal diagnosis: Ischemic, left colon necrosis The patient underwent exploratory laparotomy yesterday. She is found have significant ischemia and necrosis of her left and sigmoid colon. Objective - Vital Signs Vital signs: Vital Signs Temp 97.9 F 05/01/17 04:00 Pulse 98 05/01/17 07:00 Resp 20 05/01/17 07:00 BP 123/80 04/30/17 14:10 Pulse Ox 99 05/01/17 07:00 Intake & Output 04/30/17 05/01/17 05/01/17 18:59 06:59 18:59 Intake Total 4620 3474.799 232.169 Output Total 401 429 0 Balance 4219 3045.799 232.169 Weight 74 kg Intake: IV 4620 2500 100 Albumin Human 25% 50 ml 50 In Empty Bag 1 bag @ 100 mls/hr IVPB ONCE ONE Rx#: [id number] Calcium Gluconate 1,000 200 mg In Sodium Chloride 0.9 % 100 ml @ 100 mls/hr IVPB ONCE ONE Rx#: [id number] Meropenem 500 mg In 50 50 Sodium Chloride 0.9% 50 ml @ 100 mls/hr IVPB Q8HR [facility] Rx#:[id number] Sodium Acetate @ 100 mls/ 750 1200 100 hr IV Sodium Chloride 0.9% 1, 100 000 ml @ 100 mls/hr IV . BY DURATION [facility] Rx#: [id number] Sodium Chloride 0.9% 1, 2020 000 ml @ 125 mls/hr IV . Q8H [facility] Rx#:[id number] Sodium Chloride 0.9% 1, 1000 000 ml @ 999 mls/hr IV . Q1H1M [facility] Rx#:[id number] Intake, IV Titration 974.799 132.169 Amount Amiodarone 450 mg In 250.000 132.169 Dextrose 5% in Water 250 ml @ 1 MG/MIN 33.33 mls/ hr IV .Q7H31M [facility] Rx#: [id number] Furosemide 250 mg In 207.833 Sodium Chloride 0.9% 225 ml @ 10 MG/HR 10 mls/hr IVP .Q24H [facility] Rx#: [id number] Norepinephrin 16 mg-0.9% 466.609 Ns Pmx 16 mg In 250 ml @ Titrate IV .Q0M [facility] Rx#: [id number] Propofol 1,000 mg In 100 50.357 ml @ Titrate IV .Q0M [facility] Rx#:[id number] Output: Gastric Drainage 200 Drainage 220 220 Right Lower Abdomen 220 220 Urine 131 9 0 Estimated Blood Loss 50 Other: Voiding Method Indwelling Catheter Indwelling Catheter # Bowel Movements 0 ABP, PAP, CO, CI - Last Documented Arterial Blood Pressure 118/53 - Constitutional Constitutional Comment(s): On ventilator - Gastrointestinal Gastrointestinal Comment(s): Abdomen is mildly distended. Stoma is slightly dusky. There is no significant output through the stoma. Her incision is clean dry and intact. - Labs CBC & Chem 7: 05/01/17 04:15 05/01/17 04:15 Labs: Abnormal Lab Results - Last 24 Hours (Table) 04/30/17 04/30/17 04/30/17 Range/Units 15:22 18:15 19:46 RBC (3.80-5.40) m/uL Neutrophils # (Manual) (1.3-7.7) k/uL Lymphocytes # (Manual) (1.0-4.8) k/uL Metamyelocytes # (Man) (0) k/uL Nucleated RBCs (0-0) /100 WBC PT (9.0-12.0) sec INR (<1.2) ABG pH 7.07 L* 7.17 L* (7.35-7.45) ABG pCO2 34 L (35-45) mmHg ABG pO2 146 H 132 H (83-108) mmHg ABG HCO3 12 L 12 L (21-25) mmol/L ABG Total CO2 13 L 13 L (19-24) mmol/L ABG O2 Saturation 98.0 H 98.0 H (94-97) % Chloride 115 H (98-107) mmol/L Carbon Dioxide 11 L (22-30) mmol/L BUN 66 H (7-17) mg/dL Creatinine 4.54 H (0.52-1.04) mg/dL Glucose 117 H (74-99) mg/dL Calcium 5.3 L* (8.4-10.2) mg/dL Ionized Calcium Christine (4.5-5.3) mg/dL Phosphorus (2.5-4.5) mg/dL AST (14-36) U/L ALT (9-52) U/L Total Protein (6.3-8.2) g/dL Albumin (3.5-5.0) g/dL 05/01/17 05/01/17 05/01/17 Range/Units 04:15 04:15 04:15 RBC 3.73 L (3.80-5.40) m/uL Neutrophils # (Manual) 8.20 H (1.3-7.7) k/uL Lymphocytes # (Manual) 0.94 L (1.0-4.8) k/uL Metamyelocytes # (Man) 0.09 H (0) k/uL Nucleated RBCs 1 H (0-0) /100 WBC PT 16.0 H (9.0-12.0) sec INR 1.6 H (<1.2) ABG pH (7.35-7.45) ABG pCO2 (35-45) mmHg ABG pO2 (83-108) mmHg ABG HCO3 (21-25) mmol/L ABG Total CO2 (19-24) mmol/L ABG O2 Saturation (94-97) % Chloride 113 H (98-107) mmol/L Carbon Dioxide 12 L (22-30) mmol/L BUN 68 H (7-17) mg/dL Creatinine 4.80 H (0.52-1.04) mg/dL Glucose (74-99) mg/dL Calcium 5.5 L* (8.4-10.2) mg/dL Ionized Calcium Christine 3.4 L* (4.5-5.3) mg/dL Phosphorus 7.3 H (2.5-4.5) mg/dL AST 700 H (14-36) U/L ALT 296 H (9-52) U/L Total Protein 3.4 L (6.3-8.2) g/dL Albumin 1.8 L (3.5-5.0) g/dL 05/01/17 Range/Units 07:30 RBC (3.80-5.40) m/uL Neutrophils # (Manual) (1.3-7.7) k/uL Lymphocytes # (Manual) (1.0-4.8) k/uL Metamyelocytes # (Man) (0) k/uL Nucleated RBCs (0-0) /100 WBC PT (9.0-12.0) sec INR (<1.2) ABG pH 7.23 L (7.35-7.45) ABG pCO2 29 L (35-45) mmHg ABG pO2 118 H (83-108) mmHg ABG HCO3 12 L (21-25) mmol/L ABG Total CO2 13 L (19-24) mmol/L ABG O2 Saturation 97.8 H (94-97) % Chloride (98-107) mmol/L Carbon Dioxide (22-30) mmol/L BUN (7-17) mg/dL Creatinine (0.52-1.04) mg/dL Glucose (74-99) mg/dL Calcium (8.4-10.2) mg/dL Ionized Calcium Christine (4.5-5.3) mg/dL Phosphorus (2.5-4.5) mg/dL AST (14-36) U/L ALT (9-52) U/L Total Protein (6.3-8.2) g/dL Albumin (3.5-5.0) g/dL Microbiology - Last 24 Hours (Table) 04/28/17 13:25 Blood Culture - Preliminary Blood No Growth after 48 hours Assessment and Plan Plan: Status post left colectomy for ischemia and necrosis of left colon and sigmoid colon. Patient is receiving fluid resuscitation. She will undergo dialysis today. Her condition remains quite unstable this time.
--- NOTE | 2017-05-01 10:52 | PCN ---
PROCEDURE NOTE PROCEDURE: Placement of right brachial arterial line. PREOPERATIVE DIAGNOSIS: Acute respiratory failure, hypotension, ischemic bowel. POSTOPERATIVE DIAGNOSIS: Acute respiratory failure, hypotension, ischemic bowel. ANESTHESIA: None deployed. PROCEDURE IN DETAIL: The right brachial region was prepared in a sterile fashion and drapes were applied. The right brachial artery was palpated, cannulated, and a guidewire was placed. A Cook catheter was inserted over the guidewire, and the guidewire was removed. Good blood flow and good waveform were noted. The line was was secured using 3.0 silk sutures. MMODL / IJN: [id number] /
[2017-05-01] MEDS ORDERED: LEVOFLOXACIN 500MG-D5W PMX 500 MG in DEXTROSE/WATER 1 100ML.BAG IVPB SCH (12:00)
--- NOTE | 2017-05-01 12:55 | P.PN ---
Subjective Principal diagnosis: Acute colitis and possible abdominal sepsis , ischemic colitis, status post left colectomy with end colostomy, take down of splenic flexure, postoperative day #1 This is a very pleasant 81-year-old female patient who follows with Dr. Ministerio Key as her primary care physician. 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 He presented to the emergency room this morning after her found her quite weak and lethargic and confused. He states yesterday she appeared fine however he had to leave the house for several hours and upon his return at 7:30 PM she was already in bed. He asked if she was okay she stated she just wanted to rest. He did feel she had not been eating and drinking much the last several days. Early this morning she became quite confused and lethargic, complaining of severe abdominal discomfort and EMS was called. Her initial labs reveal a white count of 31.3, hemoglobin 17.0, neutrophils 27.8, metamyelocytes 1.25, myelocytes 0.31. Her INR was 1.8. BUN 35 with a creatinine of 2.67. Her lactic acid is 8.7. Troponin 0.201. A computed tomography scan of the abdomen and pelvis revealed moderate to severe colitis involving the left colon. There is enteritis involving small bowel loops in the right upper to mid abdomen. Infectious, inflammatory and ischemic etiologies are within the differential. There is a partial or developing mid to distal small bowel obstruction. Her stomach is distended. There is a fair amount of colonic fecal stasis noted as well. Wondering cecum expected. She has been a initiated on Levaquin and metronidazole. 3 L of 0.9 normal saline have been infused. She currently has a 0.9 normal saline at 100 MLS. She is seen today in the emergency room. She is awake. She is slow to respond. A poor historian. She is maintaining O2 saturations in the upper 90s on 2 L/m per nasal cannula. She is currently afebrile. Hemodynamically stable with improved blood pressure post fluid resuscitation. Patient was reevaluated today on 04/29/2017, continues to have abdominal distention, abdominal pain, no bowel movements since the last few days. Hemodynamics-stover, patient responded to fluid boluses, and did not require any pressors. Urine output remains marginal, hence more fluid boluses will be given , and the patient did not respond well to a high dose of Lasix given last night. Denies any shortness of breath, no cough, no wheezing, but continues to have some abdominal discomfort and tenderness. Continues to have leukocytosis with WBC count of 22.0, however improved compared to the leukocytosis on admission of 25.2. Lactic acid is down to 1.6 today from 2.7 on admission. ProBNP level is elevated, however the chest x-ray showed no evidence of congestive heart failure, there is mostly by basilar atelectasis, and a small left-sided pleural effusion. Patient was reevaluated today on 04/30/2017, overnight, the patient has taken a significant downhill course, and now she is almost anuric, complaining of significant abdominal pain which has worsened significantly since yesterday. Immediately after I evaluated the patient, I called Dr. Temple who was covering for Dr. Amor, and I felt that the patient is experiencing acute abdomen. He responded to my call and he arrived to the ICU within minutes, and again as evaluated the patient, he discussed plans to take the patient to the OR for immediate exploratory laparotomy. According to the , patient was seen by Dr. Amor yesterday, and she promised him to come back and reevaluate and make a decision whether to take her to surgery or not. But he did not hear from Dr. Amor again in the afternoon. I also discussed the patient's condition with the personal security specialist on the case, and we both felt that the patient is heading towards hemodialysis. Patient is developing significant acute kidney injury, and she is almost anuric, plans are being made for possible dialysis starting either today or tomorrow morning. Labs were reviewed, WBC count is 16.1, hemoglobin is 15.4 patient continues to show significant metabolic acidosis, and worsening renal failure. She is presently on sodium acetate for her underlying acidosis. Shortly after a evaluated the patient, family came to bedside, and myself and Dr. Temple explained to the family the need for immediate exploratory laparotomy, and they understood. There are also well aware of the fact that the patient is a high surgical risk. Patient was reevaluated today on 05/01/2017, since my visit yesterday, the patient underwent surgery by Dr. Temple, and she was found to have left necrotic colon. The colon was black in color, patient underwent left colectomy with end colostomy and takedown of splenic flexure. Basically she was found to have ischemic bowel. Patient came back to the ICU on mechanical ventilation, she was profoundly hypotensive, given significant amount of fluids, albumin, she was also given hydrocortisone, remained hypotensive hence we had to resort to norepinephrine and vasopressin. Patient was kept on mechanical ventilation, antibiotics were addressed again by infectious disease on the case, and patient remains anuric. Nephrology is considering hemodialysis on the patient later today possibly. I discussed her condition with the personal security specialist. I also discussed her condition with the admitting physician and with Dr. Temple. Patient remains on tidal volume of 500, assist control rate of 20, FiO2 of 50%, and PEEP of 5. She remains relatively acidotic, and she was given more bicarb. Remains on sodium acetate drip. Her ABG this morning showed a pO2 of 118 pCO2 of 29 pH of 7.23. BUN is 68 creatinine is 4.80 and bicarb is 12. Liver enzymes ordered to be elevated, and that's felt to be secondary to shock liver. Her pH post surgery yesterday was as low as 7.07. In spite of all the fluids and albumin given, chest x-ray is basically about the same, she has a small bilateral effusions, CVP is about 10. Hence more fluids will be given, and I plan to give her more albumin. I'm hoping I could get to the point where I could taper down the dose of norepinephrine and vasopressin significantly down. However the blood pressure is still marginal. And she is presently on 25 g of norepinephrine, and on 0.01 units per minute of vasopressin. Family including the and daughter at bedside, and I touch bases with the family regarding her condition, and about her overall critical clinical status. All meds were reviewed, labs were reviewed, antibiotics were reviewed, chest x -ray was also reviewed, ABGs were reviewed. And I had discussions with multiple physicians on the case. Objective - Vital Signs Vital signs: Vital Signs Temp 96.8 F L 05/01/17 08:00 Pulse 89 05/01/17 11:00 Resp 20 05/01/17 11:00 BP 123/80 04/30/17 14:10 Pulse Ox 98 05/01/17 11:00 Intake & Output 04/30/17 05/01/17 05/01/17 18:59 06:59 18:59 Intake Total 4620 3474.799 1774.825 Output Total 401 429 140 Balance 4219 3045.799 1634.825 Weight 74 kg Intake: IV 4620 2500 550 Albumin Human 25% 50 ml 50 In Empty Bag 1 bag @ 100 mls/hr IVPB ONCE ONE Rx#: [id number] Calcium Gluconate 1,000 200 mg In Sodium Chloride 0.9 % 100 ml @ 100 mls/hr IVPB ONCE ONE Rx#: [id number] Meropenem 500 mg In 50 50 50 Sodium Chloride 0.9% 50 ml @ 100 mls/hr IVPB Q8HR [facility] Rx#:[id number] Sodium Acetate @ 100 mls/ 750 1200 500 hr IV Sodium Chloride 0.9% 1, 100 000 ml @ 100 mls/hr IV . BY DURATION [facility] Rx#: [id number] Sodium Chloride 0.9% 1, 2020 000 ml @ 125 mls/hr IV . Q8H [facility] Rx#:[id number] Sodium Chloride 0.9% 1, 1000 000 ml @ 999 mls/hr IV . Q1H1M [facility] Rx#:[id number] Intake, IV Titration 285.223 6881.825 Amount Albumin Human 25% 50 ml 50 In Empty Bag 1 bag @ 100 mls/hr IVPB ONCE ONE Rx#: [id number] Amiodarone 450 mg In 250.000 132.169 Dextrose 5% in Water 250 ml @ 1 MG/MIN 33.33 mls/ hr IV .Q7H31M [facility] Rx#: [id number] Furosemide 250 mg In 207.833 Sodium Chloride 0.9% 225 ml @ 10 MG/HR 10 mls/hr IVP .Q24H [facility] Rx#: [id number] Norepinephrin 16 mg-0.9% 466.609 42.656 Ns Pmx 16 mg In 250 ml @ Titrate IV .Q0M [facility] Rx#: [id number] Propofol 1,000 mg In 100 50.357 ml @ Titrate IV .Q0M [facility] Rx#:[id number] Sodium Chloride 0.9% 1, 1000 000 ml @ 999 mls/hr IV . Q1H1M [facility] Rx#:[id number] Output: Gastric Drainage 200 Drainage 220 220 140 Right Lower Abdomen 220 220 140 Urine 131 9 0 Estimated Blood Loss 50 Other: Voiding Method Indwelling Catheter Indwelling Catheter Indwelling Catheter # Bowel Movements 0 0 ABP, PAP, CO, CI - Last Documented Arterial Blood Pressure 96/49 - Exam GENERAL EXAM: 81 year-old sedated, on mechanical ventilation, on propofol drip. And intermittently on pain medications./Narcotics. HEAD: No neck masses, no JVD, no thyromegaly, endotracheal tube and gastric tube are intact. EYES: Normal reaction of pupils, equal size. NOSE: Clear with pink turbinates. THROAT: No erythema or exudates. NECK: No masses, no JVD. CHEST: No chest wall deformity. LUNGS: Diminished breath sounds at the bases, crackles noted at the bases. CVS: S1 and S2 normal with no audible murmurs, regular rhythm. ABDOMEN: Postsurgical, incision clean, nontender, diminished bowel sounds. Extremities: There is no peripheral edema. No clubbing, no cyanosis. Peripheral pulses are intact. Neurologic: Cannot be assessed patient is on propofol drip, fully sedated. - Labs CBC & Chem 7: 05/01/17 04:15 05/01/17 04:15 Labs: Abnormal Lab Results - Last 24 Hours (Table) 04/30/17 04/30/17 04/30/17 Range/Units 15:22 18:15 19:46 RBC (3.80-5.40) m/uL Neutrophils # (Manual) (1.3-7.7) k/uL Lymphocytes # (Manual) (1.0-4.8) k/uL Metamyelocytes # (Man) (0) k/uL Nucleated RBCs (0-0) /100 WBC PT (9.0-12.0) sec INR (<1.2) ABG pH 7.07 L* 7.17 L* (7.35-7.45) ABG pCO2 34 L (35-45) mmHg ABG pO2 146 H 132 H (83-108) mmHg ABG HCO3 12 L 12 L (21-25) mmol/L ABG Total CO2 13 L 13 L (19-24) mmol/L ABG O2 Saturation 98.0 H 98.0 H (94-97) % Chloride 115 H (98-107) mmol/L Carbon Dioxide 11 L (22-30) mmol/L BUN 66 H (7-17) mg/dL Creatinine 4.54 H (0.52-1.04) mg/dL Glucose 117 H (74-99) mg/dL Calcium 5.3 L* (8.4-10.2) mg/dL Ionized Calcium Christine (4.5-5.3) mg/dL Phosphorus (2.5-4.5) mg/dL AST (14-36) U/L ALT (9-52) U/L Total Protein (6.3-8.2) g/dL Albumin (3.5-5.0) g/dL 05/01/17 05/01/17 05/01/17 Range/Units 04:15 04:15 04:15 RBC 3.73 L (3.80-5.40) m/uL Neutrophils # (Manual) 8.20 H (1.3-7.7) k/uL Lymphocytes # (Manual) 0.94 L (1.0-4.8) k/uL Metamyelocytes # (Man) 0.09 H (0) k/uL Nucleated RBCs 1 H (0-0) /100 WBC PT 16.0 H (9.0-12.0) sec INR 1.6 H (<1.2) ABG pH (7.35-7.45) ABG pCO2 (35-45) mmHg ABG pO2 (83-108) mmHg ABG HCO3 (21-25) mmol/L ABG Total CO2 (19-24) mmol/L ABG O2 Saturation (94-97) % Chloride 113 H (98-107) mmol/L Carbon Dioxide 12 L (22-30) mmol/L BUN 68 H (7-17) mg/dL Creatinine 4.80 H (0.52-1.04) mg/dL Glucose (74-99) mg/dL Calcium 5.5 L* (8.4-10.2) mg/dL Ionized Calcium Christine 3.4 L* (4.5-5.3) mg/dL Phosphorus 7.3 H (2.5-4.5) mg/dL AST 700 H (14-36) U/L ALT 296 H (9-52) U/L Total Protein 3.4 L (6.3-8.2) g/dL Albumin 1.8 L (3.5-5.0) g/dL 05/01/17 Range/Units 07:30 RBC (3.80-5.40) m/uL Neutrophils # (Manual) (1.3-7.7) k/uL Lymphocytes # (Manual) (1.0-4.8) k/uL Metamyelocytes # (Man) (0) k/uL Nucleated RBCs (0-0) /100 WBC PT (9.0-12.0) sec INR (<1.2) ABG pH 7.23 L (7.35-7.45) ABG pCO2 29 L (35-45) mmHg ABG pO2 118 H (83-108) mmHg ABG HCO3 12 L (21-25) mmol/L ABG Total CO2 13 L (19-24) mmol/L ABG O2 Saturation 97.8 H (94-97) % Chloride (98-107) mmol/L Carbon Dioxide (22-30) mmol/L BUN (7-17) mg/dL Creatinine (0.52-1.04) mg/dL Glucose (74-99) mg/dL Calcium (8.4-10.2) mg/dL Ionized Calcium Christine (4.5-5.3) mg/dL Phosphorus (2.5-4.5) mg/dL AST (14-36) U/L ALT (9-52) U/L Total Protein (6.3-8.2) g/dL Albumin (3.5-5.0) g/dL Microbiology - Last 24 Hours (Table) 04/28/17 13:25 Blood Culture - Preliminary Blood No Growth after 48 hours Assessment and Plan Plan: #1 acute abdominal sepsis and septic shock secondary to ischemic bowel and ischemic colitis. Status post colectomy postoperative day #1. #2 acute necrosis of left colon and sigmoid colon requiring colectomy and takedown of splenic flexure. Postoperative day #1 #3 acute kidney injury, patient is presently anuric, will require dialysis and this was discussed with the personal security specialist on the case. #4 Leukocytosis with bandemia secondary to above. #5 Lactic acidosis secondary to above. #6 Acute renal failure secondary to sepsis, hypotension and dehydration. This is clearly a picture of acute kidney injury, and acute tubular necrosis. Will require hemodialysis. #7 Coagulopathy secondary to sepsis, INR 1.6 #8 Troponin leak. #9 History of hypertension. #10 Hyperlipidemia. #11 Coronary artery disease status post coronary stent placement 3. Currently on Plavix and aspirin. #12 History of CVA/TIA. #13 acute shock liver secondary to hypotension. Recommendation: Continue present supportive care measures including mechanical ventilations, antibiotics, possible start TPN in the next 24 hours, patient will likely need to have hemodialysis, continue fluids, pressors as long as needed, however we hope with fluids and albumin we could potentially cut down on the pressors as much as possible. Continue steroids, patient is presently on hydrocortisone, and we will follow closely. I had a long discussion with and daughter at bedside, and explained the different aspect of her clinical condition. Questions were answered to their satisfaction. Critical care time is 45 minutes. Time with Patient: Greater than 30
--- NOTE | 2017-05-01 13:28 | PN ---
PROGRESS NOTE An 81-year-old lady who had ischemic bowel and underwent surgery for the same, developed atrial fibrillation yesterday. Today her heart rate is better controlled. She is on IV amiodarone with subcu Lovenox and has worsening renal failure and may undergo dialysis today. Remains on Levophed. EXAM: Heart rate is 80 beats per minute. Blood pressure is 96/49, respiratory rate is 18, O2 saturation is 98% on room air. Chest exam reveals diminished air entry at the bases. Heart exam reveals first and second heart sounds. No gallop. Exam of extremities revealed trace edema. Abdomen is status post surgery. LABS: Potassium is 5, BUN is 68, creatinine 4.8. CBC shows a hemoglobin of 11.5, which is a drop from 15. ASSESSMENT: 1. Acute ischemic bowel status post surgery. 2. New onset atrial fibrillation with controlled ventricular rate. 3. Hypotension. PLAN: We will continue with current supportive care. Prognosis is guarded. I will continue the amiodarone and Levophed. MMODL / IJN: [id number] /
--- NOTE | 2017-05-01 15:07 | PN ---
PROGRESS NOTE Patient is seen for followup for acute kidney injury. She was taken to the OR yesterday and found to have ischemic bowel with bowel resection and colostomy. The patient remains anuric. She is maintained on sodium acetate drip and Lasix drip at 10 mg/hour with no urine output noted. The patient is also on Diprivan. She is on IV amiodarone drip for atrial fibrillation with RVR. EXAMINATION: Today, blood pressure is 96/49. Levophed is at about 27 mcg. Heart rate 89 per minute. Patient is afebrile. Examination of the heart: S1, S2. Examination of the lungs: Bilateral breath sounds are heard. Decreased breath sounds at bases. Abdomen is dressed. Abdominal drain is present. Examination of lower extremity shows no evidence of edema. A[employer] DESIGN ENGINE[employer] exam cannot be performed. LABS: Hemoglobin 11.5, white cell count 9.4. Sodium of 141, potassium 5.0, BUN 68, serum creatinine 4.8, calcium 5.5. ASSESSMENT: 1. Acute kidney injury, acute tubular necrosis, currently oligoanuric with significant acidosis. Will proceed with renal replacement therapy. Patient's family is present at bedside and I have discussed with them. It will be challenging as she is quite hypotensive. We will try to dialyze her today using a small dialyzer and low flows. No plans for significant ultrafiltration. 2. Severe metabolic acidosis secondary to renal failure. Maintained on sodium acetate drip. Expect improvement with dialysis. 3. Ischemic bowel status post explorative laparotomy and bowel resection with colostomy. 4. Vent dependent respiratory failure. 5. Atrial fibrillation with a RVR, maintained on amiodarone drip. PLAN: Hemodialysis today. We can DC the Lasix drip. We will repeat dialysis again tomorrow. MMODL / IJN: [id number] /
[2017-05-01] MEDS: WATER FOR INJECTION, STERILE 1,000 ML with SODIUM ACETATE 150 MEQ IV SCH ×4 (15:37→22:14)
--- NOTE | 2017-05-01 16:04 | P.PN ---
Subjective This is a pleasant 81-year-old female patient of Dr. Ministerio Key. She has a history of hypertension and CAD with prior stent placement, previous TIA less than 10 years ago, follows with Dr. Fazal Sepulveda cardiology, and was stable on his last visit 04/06/2017 without any evidence of CHF or valvular heart disease or unstable angina according to the . Patient has been evaluated in the emergency room after the found her to be weak and moaning and groaning and increasing;y confused, patient did not complain anything significant prior to this however on further inquiry, patient has had increasing abdominal pain and abdominal distention, anorexia diminished appetite nausea and vomiting without any fever, last bowel movement was 1 week prior to admission. 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 Patient does not have any baseline colonoscopy In the emergency room patient was seen and was noted to have a CAT scan of the abdomen and pelvis showing moderate severe colitis involving the left colon enteritis involving small bowel loops in the right upper to mid abdomen a partial or developing mid to distal small bowel obstruction cannot be ruled out , distended stomach is noted there is moderate diffuse colonic fecal stasis, wondering cecum suspected. At 3.2 cm ovarian cyst right side which needs to be worked up as an outpatient. There is moderate to severe wall thickening with scattered diverticula in the left colon surrounding ill-defined fluid and fat stranding present. Severe calcified plaque of the aorta extending into branch vessels small fluid noted in the left paracolic gutter and surrounding the liver anteriorly Laterally. Patient was septic on ER presentation with a wbc of 31,000, INR 1.8, creatinine of 2.7, lactic acid of 8.7 TSH is elevated at 8, troponin elevated at 0.2 urinalysis negative except for proteinuria 04/29: Patient currently remains in ICU, cytosis and lactic acidosis is improving , patient currently is in a G-tube and is nothing by mouth for bowel rest, rectal suppositories for fecal impaction, T-max of 98.6 , IV antibiotics Levaquin and Flagyl, hemodynamically stable. Patient's morning groaning with pain patient remains to be alert however occasionally lethargic. No plan for any surgical intervention, this time we would only resume Plavix aspirin once general surgery is beyond the window for surgical intervention 04/30: Discussed with Dr. Trent today, patient will be undergoing exploratory laparotomy with Dr. Temlpe in next few minutes, for suspected ischemic bowel. The bedside, patient is still lethargic morning groaning, with distended and tender abdomen ,IV pain medication was given 05/01: patient underwent emergent explore lap with findings of necrotic left- sided colon as well as sigmoid area, requiring left colectomy, Dr. Hetal Lozano on 04/30/2017 patient remains in ICU mechanically ventilated with pressor agents, Levophed, albumin infusion, Lasix drip as the patient was anuric followed closely by Dr. Orozco and Dr. Ang Murray . Antibiotics streamlined to meropenem IV. Objective - Vital Signs Vital signs: Vital Signs Temp 96.8 F L 05/01/17 08:00 Pulse 89 05/01/17 11:00 Resp 20 05/01/17 11:00 BP 123/80 04/30/17 14:10 Pulse Ox 98 05/01/17 11:00 Intake & Output 04/30/17 05/01/17 05/01/17 18:59 06:59 18:59 Intake Total 4620 3474.799 1774.825 Output Total 401 429 140 Balance 4219 3045.799 1634.825 Weight 74 kg Intake: IV 4620 2500 550 Albumin Human 25% 50 ml 50 In Empty Bag 1 bag @ 100 mls/hr IVPB ONCE ONE Rx#: [id number] Calcium Gluconate 1,000 200 mg In Sodium Chloride 0.9 % 100 ml @ 100 mls/hr IVPB ONCE ONE Rx#: [id number] Meropenem 500 mg In 50 50 50 Sodium Chloride 0.9% 50 ml @ 100 mls/hr IVPB Q8HR [facility] Rx#:[id number] Sodium Acetate @ 100 mls/ 750 1200 500 hr IV Sodium Chloride 0.9% 1, 100 000 ml @ 100 mls/hr IV . BY DURATION NADINE Rx#: [id number] Sodium Chloride 0.9% 1, 2020 000 ml @ 125 mls/hr IV . Q8H [facility] Rx#:[id number] Sodium Chloride 0.9% 1, 1000 000 ml @ 999 mls/hr IV . Q1H1M ONE Rx#:[id number] Intake, IV Titration 103.859 6806.825 Amount Albumin Human 25% 50 ml 50 In Empty Bag 1 bag @ 100 mls/hr IVPB ONCE ONE Rx#: [id number] Amiodarone 450 mg In 250.000 132.169 Dextrose 5% in Water 250 ml @ 1 MG/MIN 33.33 mls/ hr IV .Q7H31M [facility] Rx#: [id number] Furosemide 250 mg In 207.833 Sodium Chloride 0.9% 225 ml @ 10 MG/HR 10 mls/hr IVP .Q24H [facility] Rx#: [id number] Norepinephrin 16 mg-0.9% 466.609 42.656 Ns Pmx 16 mg In 250 ml @ Titrate IV .Q0M [facility] Rx#: [id number] Propofol 1,000 mg In 100 50.357 ml @ Titrate IV .Q0M [facility] Rx#:[id number] Sodium Chloride 0.9% 1, 1000 000 ml @ 999 mls/hr IV . Q1H1M [facility] Rx#:[id number] Output: Gastric Drainage 200 Drainage 220 220 140 Right Lower Abdomen 220 220 140 Urine 131 9 0 Estimated Blood Loss 50 Other: Voiding Method Indwelling Catheter Indwelling Catheter Indwelling Catheter # Bowel Movements 0 0 ABP, PAP, CO, CI - Last Documented Arterial Blood Pressure 96/49 - Constitutional General appearance: Present: no acute distress - EENT Eyes: Present: anicteric sclerae, normal appearance ENT: Present: normal oropharynx - Neck Neck: Present: normal ROM - Respiratory Respiratory: bilateral: CTA, negative: diminished, dullness, rales, rhonchi - Cardiovascular Rhythm: regular Heart sounds: normal: S1, S2 Abnormal Heart Sounds: Absent: systolic murmur, diastolic murmur, rub, S3 Gallop , S4 Gallop, click, other - Gastrointestinal General gastrointestinal: Present: decreased bowel sounds, soft - Neurologic Neurologic: Present: CNII-XII intact - Musculoskeletal Musculoskeletal: Present: gait normal - Psychiatric Psychiatric: Present: A&O x's 3, appropriate affect - Labs CBC & Chem 7: 05/01/17 04:15 05/01/17 04:15 Labs: Abnormal Lab Results - Last 24 Hours (Table) 04/30/17 04/30/17 04/30/17 Range/Units 15:22 18:15 19:46 RBC (3.80-5.40) m/uL Neutrophils # (Manual) (1.3-7.7) k/uL Lymphocytes # (Manual) (1.0-4.8) k/uL Metamyelocytes # (Man) (0) k/uL Nucleated RBCs (0-0) /100 WBC PT (9.0-12.0) sec INR (<1.2) ABG pH 7.07 L* 7.17 L* (7.35-7.45) ABG pCO2 34 L (35-45) mmHg ABG pO2 146 H 132 H (83-108) mmHg ABG HCO3 12 L 12 L (21-25) mmol/L ABG Total CO2 13 L 13 L (19-24) mmol/L ABG O2 Saturation 98.0 H 98.0 H (94-97) % Chloride 115 H (98-107) mmol/L Carbon Dioxide 11 L (22-30) mmol/L BUN 66 H (7-17) mg/dL Creatinine 4.54 H (0.52-1.04) mg/dL Glucose 117 H (74-99) mg/dL Calcium 5.3 L* (8.4-10.2) mg/dL Ionized Calcium Christine (4.5-5.3) mg/dL Phosphorus (2.5-4.5) mg/dL AST (14-36) U/L ALT (9-52) U/L Total Protein (6.3-8.2) g/dL Albumin (3.5-5.0) g/dL 05/01/17 05/01/17 05/01/17 Range/Units 04:15 04:15 04:15 RBC 3.73 L (3.80-5.40) m/uL Neutrophils # (Manual) 8.20 H (1.3-7.7) k/uL Lymphocytes # (Manual) 0.94 L (1.0-4.8) k/uL Metamyelocytes # (Man) 0.09 H (0) k/uL Nucleated RBCs 1 H (0-0) /100 WBC PT 16.0 H (9.0-12.0) sec INR 1.6 H (<1.2) ABG pH (7.35-7.45) ABG pCO2 (35-45) mmHg ABG pO2 (83-108) mmHg ABG HCO3 (21-25) mmol/L ABG Total CO2 (19-24) mmol/L ABG O2 Saturation (94-97) % Chloride 113 H (98-107) mmol/L Carbon Dioxide 12 L (22-30) mmol/L BUN 68 H (7-17) mg/dL Creatinine 4.80 H (0.52-1.04) mg/dL Glucose (74-99) mg/dL Calcium 5.5 L* (8.4-10.2) mg/dL Ionized Calcium Christine 3.4 L* (4.5-5.3) mg/dL Phosphorus 7.3 H (2.5-4.5) mg/dL AST 700 H (14-36) U/L ALT 296 H (9-52) U/L Total Protein 3.4 L (6.3-8.2) g/dL Albumin 1.8 L (3.5-5.0) g/dL 05/01/17 Range/Units 07:30 RBC (3.80-5.40) m/uL Neutrophils # (Manual) (1.3-7.7) k/uL Lymphocytes # (Manual) (1.0-4.8) k/uL Metamyelocytes # (Man) (0) k/uL Nucleated RBCs (0-0) /100 WBC PT (9.0-12.0) sec INR (<1.2) ABG pH 7.23 L (7.35-7.45) ABG pCO2 29 L (35-45) mmHg ABG pO2 118 H (83-108) mmHg ABG HCO3 12 L (21-25) mmol/L ABG Total CO2 13 L (19-24) mmol/L ABG O2 Saturation 97.8 H (94-97) % Chloride (98-107) mmol/L Carbon Dioxide (22-30) mmol/L BUN (7-17) mg/dL Creatinine (0.52-1.04) mg/dL Glucose (74-99) mg/dL Calcium (8.4-10.2) mg/dL Ionized Calcium Christine (4.5-5.3) mg/dL Phosphorus (2.5-4.5) mg/dL AST (14-36) U/L ALT (9-52) U/L Total Protein (6.3-8.2) g/dL Albumin (3.5-5.0) g/dL Microbiology - Last 24 Hours (Table) 04/28/17 13:25 Blood Culture - Preliminary Blood No Growth after 48 hours Assessment and Plan Plan: 1. Sepsis with SIRS secondary to significant colitis with fecal burden no evidence of peritonitis at this time, with a partial to early developing distal small bowel obstruction is suspected to CT, patient is dehydrated with acute kidney failure on ER presentation, patient is admitted to ICU with general consult to Dr. Butt general surgery, systems specialist Dr. Trent, and patient will be started on IV Flagyl and IV Levaquin. Patient has penicillin ALLERGY. Patient is made nothing by mouth, patient might need an NG tube. Patient will be closely monitored, and no plans for acute surgical intervention at this time should be a class III anesthesia risk should there be immediate surgery needed carrying higher risk mortality. Patient is to undergo emergent exploratory laparotomy on 04/30/[address] Temple 2. Hemodynamic instability with hypotension, secondary to septic shock fluid boluses are currently being given, IV fluids and avoidance of any nephrotoxic agents, to the primary condition which is bowel resection IV antibiotics on board next lisinopril on hold secondary to hypotension thiazide on hold 3. Acute kidney failure, unknown baseline. Renal injury most likely secondary to ATN rather than interstitial nephritis, no recent antibiotics prior to this admission no recent NSAID use 4. Elevated troponin most likely secondary to sepsis, patient is on Plavix which is on hold secondary to possible surgical intervention over the next 48 hours. Cardiology consult, patient would have troponins BNP bio-markers followed closely 5. CAD with 3 cardiac stents follows with Dr. Fazal Sepulveda cardiology patient is on Plavix which is on hold until surgical emergency situationi s stabilized continue on Lopressor 50 mg twice a day with parameters 6. Hypothyroidism IV l-thyroxine 25 g daily, no previous thyroid supplementation prior to admission 7. Metabolic encephalopathy secondary to sepsis, 8. Coagulopathy secondary to sepsis or signs of cutaneous bleeding at this time , monitor for ongoing GI losses vitamin K given patient is not on any oral anticoagulants 9. Hyperlipidemia on Lipitor on hold currently nothing by mouth 10. Right ovarian cyst unusual for age, CA [address] Amor 10. Lactic acidosis secondary to sepsis 11. GI prophylaxis IV Protonix 12. DVT prophylaxis with Lovenox 13 Moderate protein malnutrition secondary to prolonged diminished appetite Prognosis guarded
[2017-05-01 21:37] LABS: Glucose,Whole Blood <20 mg/dL (75-99)
[2017-05-01] MEDS ORDERED: DEXTROSE 10 % IN WATER 250 ML IV STA ×2 (21:45→22:04)
[2017-05-01 21:50] LABS: Glucose,Whole Blood <20 mg/dL (75-99)
[2017-05-01 22:12] LABS: Glucose,Whole Blood 280 mg/dL (75-99)
[2017-05-01 23:10] LABS: Glucose,Whole Blood 52 mg/dL (75-99)
[2017-05-01 23:24] LABS: Magnesium 2.1 mg/dL (1.6-2.3); Potassium 5.9 mmol/L (3.5-5.1)
[2017-05-01 23:24] LABS: CH 29.7; CHCM 31.4; HCT 29.3 % (34.0-46.0); HDW 3.16; Hypochromasia Slight; Immature Gran Flag Marked; MCH 32.2 pg (25.0-35.0); MCHC 33.6 g/dL (31.0-37.0); MCV 95.8 fL (80.0-100.0); Mean Platelet Volume 8.6; RBC 3.06 m/uL (3.80-5.40); WBC (Perox) 9.26
[2017-05-01 23:25] LABS: HGB 9.9 gm/dL (11.4-16.0)
[2017-05-01 23:28] LABS: Add Differential Manual Differential
[2017-05-01 23:31] LABS: Glucose,Whole Blood 101 mg/dL (75-99)
[2017-05-01 23:33] LABS: Calcium 5.4 mg/dL (8.4-10.2)
[2017-05-02] LABS: Band Neutrophils % 23 %; Nucleated Red Blood Cells 2 /100 WBC (0-0); Total Cells Counted 200
[2017-05-02] MEDS ORDERED: ALBUTEROL NEBULIZED 2.5 MG/3 ML INHALATION STA (00:03)
[2017-05-02 00:04] LABS: Manual Review Performed
[2017-05-02 00:26] VITALS: TEMP 97.4
[2017-05-02 00:32] LABS: Glucose,Whole Blood 68 mg/dL (75-99)
[2017-05-02] MEDS: HYDROCORTISONE SUCCINATE 100 MG/2 ML VIAL IV SCH (00:40)
[2017-05-02] MEDS ORDERED: DEXTROSE 5% IN WATER 1,000 ML with SODIUM ACETATE 150 MEQ IV SCH (01:00)
[2017-05-02 01:02] LABS: Glucose,Whole Blood 49 mg/dL (75-99)
[2017-05-02 01:08] LABS: Glucose,Whole Blood 102 mg/dL (75-99)
[2017-05-02] MEDS ORDERED: CALCIUM GLUCONATE 1,000 MG in SODIUM CHLORIDE 0.9% 100 ML IVPB ONE (02:27)
[2017-05-02 02:43] LABS: Glucose,Whole Blood 91 mg/dL (75-99)
[2017-05-02 04:02] VITALS: RESP 20
[2017-05-02 04:02] LABS: Glucose,Whole Blood 108 mg/dL (75-99)
[2017-05-02] MEDS: SODIUM CHLORIDE 0.9% 99 ML with VASOPRESSIN 20 UNIT IV SCH ×2 (05:37)
[2017-05-02 05:43] LABS: Glucose,Whole Blood 83 mg/dL (75-99)
[2017-05-02] MEDS: LEVOTHYROXINE 50 MCG TAB PO SCH (06:20)
[2017-05-02 07:12] VITALS: PULSE 84
[2017-05-02 07:30] LABS: Glucose,Whole Blood <20 mg/dL (75-99)
[2017-05-02 07:41] LABS: Glucose,Whole Blood >600 mg/dL (75-99)
[2017-05-02] MEDS ORDERED: EPINEPHrine 10 ML SYRINGE (0.1 MG/ML) ONE ×2 (07:41→12:25)
[2017-05-02] MEDS ORDERED: EPINEPHrine 2 MG in DEXTROSE 5% IN WATER 250 ML IV SCH ×4 (07:45)
[2017-05-02 07:47] LABS: Glucose,Whole Blood 413 mg/dL (75-99)
--- NOTE | 2017-05-02 11:14 | ED ---
Medical Decision Making - Medical Decision Making The patient was a intensive care unit patient a code was called on the patient did 20 3 AM she was found to be pulseless ACLS/CPR protocol was started. This did continue including vigorous chest compressions and aggressive use of IV medications. This continued with the patient from most part been pulseless and with rhythms indicating asystole and later PEA. The recessive efforts were determined to be futile the patient was not responsive to the recessive efforts. Patient was in PEA and the efforts were terminated at 07 50 2 AM. Family members and physicians were notified by staff. - Lab Data Result diagrams: 05/01/17 23:04 05/01/17 23:00 Lab Results 04/28/17 04/28/17 04/28/17 Range/Units 10:26 10:38 10:38 WBC 31.3 H* (3.8-10.6) k/uL RBC 5.52 H (3.80-5.40) m/uL Hgb 17.0 H (11.4-16.0) gm/dL Hct 52.1 H (34.0-46.0) % MCV 94.4 (80.0-100.0) fL MCH 30.7 (25.0-35.0) pg MCHC 32.5 (31.0-37.0) g/dL RDW 13.7 (11.5-15.5) % Plt Count 354 (150-450) k/uL Neutrophils % (Manual) 60 % Band Neutrophils % 29 % Lymphocytes % (Manual) 6 % Monocytes % (Manual) 3 % Metamyelocytes % 4 % Myelocytes % 1 % Neutrophils # (Manual) 27.80 H (1.3-7.7) k/uL Lymphocytes # (Manual) 1.88 (1.0-4.8) k/uL Monocytes # (Manual) 0.94 (0-1.0) k/uL Metamyelocytes # (Man) 1.25 H (0) k/uL Myelocytes # (Manual) 0.31 H (0) k/uL Nucleated RBCs 0 (0-0) /100 WBC Manual Slide Review Performed Toxic Granulation Present Poikilocytosis (manual Present PT 17.6 H (9.0-12.0) sec INR 1.8 H (<1.2) APTT 35.8 H (22.0-30.0) sec Sodium (137-145) mmol/L Potassium (3.5-5.1) mmol/L Chloride (98-107) mmol/L Carbon Dioxide (22-30) mmol/L Anion Gap mmol/L BUN (7-17) mg/dL Creatinine (0.52-1.04) mg/dL Est GFR (MDRD) Af Amer (>60 ml/min/1.73 sqM) Est GFR (MDRD) Non-Af (>60 ml/min/1.73 sqM) Glucose (74-99) mg/dL POC Glucose (mg/dL) 124 H (75-99) mg/dL POC Glu Financial Engineer ID Aleyda Crenshaw Lactic Ac Sepsis Rflx Plasma Lactic Acid Davi (0.7-2.0) mmol/L Calcium (8.4-10.2) mg/dL Phosphorus (2.5-4.5) mg/dL Magnesium (1.6-2.3) mg/dL Total Bilirubin (0.2-1.3) mg/dL AST (14-36) U/L ALT (9-52) U/L Alkaline Phosphatase (38-126) U/L Total Creatine Kinase (30-135) U/L CK-MB (CK-2) (0.0-2.4) ng/mL CK-MB (CK-2) Rel Index Troponin I (0.000-0.034) ng/mL Total Protein (6.3-8.2) g/dL Albumin (3.5-5.0) g/dL TSH (0.465-4.680) mIU/L Urine Color Urine Appearance (Clear) Urine pH (5.0-8.0) Ur Specific [place] (1.001-1.035) Urine Protein (Negative) Urine Glucose (UA) (Negative) Urine Ketones (Negative) Urine Blood (Negative) Urine Nitrite (Negative) Urine Bilirubin (Negative) Urine Urobilinogen (<2.0) mg/dL Ur Leukocyte Esterase (Negative) Urine RBC (0-5) /hpf Urine WBC (0-5) /hpf Ur Squamous Epith Cells (0-4) /hpf 04/28/17 04/28/17 04/28/17 Range/Units 10:38 10:38 10:38 WBC (3.8-10.6) k/uL RBC (3.80-5.40) m/uL Hgb (11.4-16.0) gm/dL Hct (34.0-46.0) % MCV (80.0-100.0) fL MCH (25.0-35.0) pg MCHC (31.0-37.0) g/dL RDW (11.5-15.5) % Plt Count (150-450) k/uL Neutrophils % (Manual) % Band Neutrophils % % Lymphocytes % (Manual) % Monocytes % (Manual) % Metamyelocytes % % Myelocytes % % Neutrophils # (Manual) (1.3-7.7) k/uL Lymphocytes # (Manual) (1.0-4.8) k/uL Monocytes # (Manual) (0-1.0) k/uL Metamyelocytes # (Man) (0) k/uL Myelocytes # (Manual) (0) k/uL Nucleated RBCs (0-0) /100 WBC Manual Slide Review Toxic Granulation Poikilocytosis (manual PT (9.0-12.0) sec INR (<1.2) APTT (22.0-30.0) sec Sodium 138 (137-145) mmol/L Potassium 3.7 (3.5-5.1) mmol/L Chloride 108 H (98-107) mmol/L Carbon Dioxide 16 L (22-30) mmol/L Anion Gap 14 mmol/L BUN 35 H (7-17) mg/dL Creatinine 2.67 H (0.52-1.04) mg/dL Est GFR (MDRD) Af Amer 21 (>60 ml/min/1.73 sqM) Est GFR (MDRD) Non-Af 17 (>60 ml/min/1.73 sqM) Glucose 106 H (74-99) mg/dL POC Glucose (mg/dL) (75-99) mg/dL POC Glu Financial Engineer ID Lactic Ac Sepsis Rflx Plasma Lactic Acid Davi 8.7 H* (0.7-2.0) mmol/L Calcium 8.1 L (8.4-10.2) mg/dL Phosphorus 4.8 H (2.5-4.5) mg/dL Magnesium 2.1 (1.6-2.3) mg/dL Total Bilirubin 0.5 (0.2-1.3) mg/dL AST 28 (14-36) U/L ALT 28 (9-52) U/L Alkaline Phosphatase 59 (38-126) U/L Total Creatine Kinase 94 (30-135) U/L CK-MB (CK-2) 5.1 H* (0.0-2.4) ng/mL CK-MB (CK-2) Rel Index 5.4 Troponin I 0.201 H* (0.000-0.034) ng/mL Total Protein 4.5 L (6.3-8.2) g/dL Albumin 2.5 L (3.5-5.0) g/dL TSH 8.280 H (0.465-4.680) mIU/L Urine Color Urine Appearance (Clear) Urine pH (5.0-8.0) Ur Specific [place] (1.001-1.035) Urine Protein (Negative) Urine Glucose (UA) (Negative) Urine Ketones (Negative) Urine Blood (Negative) Urine Nitrite (Negative) Urine Bilirubin (Negative) Urine Urobilinogen (<2.0) mg/dL Ur Leukocyte Esterase (Negative) Urine RBC (0-5) /hpf Urine WBC (0-5) /hpf Ur Squamous Epith Cells (0-4) /hpf 04/28/17 04/28/17 Range/Units 10:40 11:30 WBC (3.8-10.6) k/uL RBC (3.80-5.40) m/uL Hgb (11.4-16.0) gm/dL Hct (34.0-46.0) % MCV (80.0-100.0) fL MCH (25.0-35.0) pg MCHC (31.0-37.0) g/dL RDW (11.5-15.5) % Plt Count (150-450) k/uL Neutrophils % (Manual) % Band Neutrophils % % Lymphocytes % (Manual) % Monocytes % (Manual) % Metamyelocytes % % Myelocytes % % Neutrophils # (Manual) (1.3-7.7) k/uL Lymphocytes # (Manual) (1.0-4.8) k/uL Monocytes # (Manual) (0-1.0) k/uL Metamyelocytes # (Man) (0) k/uL Myelocytes # (Manual) (0) k/uL Nucleated RBCs (0-0) /100 WBC Manual Slide Review Toxic Granulation Poikilocytosis (manual PT (9.0-12.0) sec INR (<1.2) APTT (22.0-30.0) sec Sodium (137-145) mmol/L Potassium (3.5-5.1) mmol/L Chloride (98-107) mmol/L Carbon Dioxide (22-30) mmol/L Anion Gap mmol/L BUN (7-17) mg/dL Creatinine (0.52-1.04) mg/dL Est GFR (MDRD) Af Amer (>60 ml/min/1.73 sqM) Est GFR (MDRD) Non-Af (>60 ml/min/1.73 sqM) Glucose (74-99) mg/dL POC Glucose (mg/dL) (75-99) mg/dL POC Glu Financial Engineer ID Lactic Ac Sepsis Rflx Y Plasma Lactic Acid Davi (0.7-2.0) mmol/L Calcium (8.4-10.2) mg/dL Phosphorus (2.5-4.5) mg/dL Magnesium (1.6-2.3) mg/dL Total Bilirubin (0.2-1.3) mg/dL AST (14-36) U/L ALT (9-52) U/L Alkaline Phosphatase (38-126) U/L Total Creatine Kinase (30-135) U/L CK-MB (CK-2) (0.0-2.4) ng/mL CK-MB (CK-2) Rel Index Troponin I (0.000-0.034) ng/mL Total Protein (6.3-8.2) g/dL Albumin (3.5-5.0) g/dL TSH (0.465-4.680) mIU/L Urine Color Yellow Urine Appearance Clear (Clear) Urine pH 6.0 (5.0-8.0) Ur Specific [place] 1.013 (1.001-1.035) Urine Protein 1+ H (Negative) Urine Glucose (UA) Negative (Negative) Urine Ketones Negative (Negative) Urine Blood Negative (Negative) Urine Nitrite Negative (Negative) Urine Bilirubin Negative (Negative) Urine Urobilinogen <2.0 (<2.0) mg/dL Ur Leukocyte Esterase Negative (Negative) Urine RBC 1 (0-5) /hpf Urine WBC <1 (0-5) /hpf Ur Squamous Epith Cells 1 (0-4) /hpf Critical Care Time Critical Care Time: Yes Critical Care Time: 37 minutes of critical care time which included responding to the CODE BLUE call as well as presiding over the recessive efforts. Documentation of the above. Disposition Clinical Impression: Abdominal pain, Constipation, Colitis, SBO (small bowel obstruction), SIRS ( systemic inflammatory response syndrome) Disposition: ADMITTED IP TO THIS HOSP Condition: Critical
[2017-05-02] MEDS ORDERED: CALCIUM CHLORIDE 100 MG/ML 10 ML SYRINGE ONE (12:25)
[2017-05-02] MEDS ORDERED: ATROPINE SULFATE 0.1 MG/ML 10ML SYRINGE ONE (12:25)
[2017-05-02] MEDS ORDERED: SODIUM BICARB 8.4% 50 ML SYR (1 MEQ/ML) ONE (12:25)
== END 2017-05-02 07:52 | disposition expired | DRG 853 ==
LOC: EC 10:07 → 6ICU 12:58
PROVIDERS: ADMIT Family Medicine; ATTEND Family Medicine
PROC: 03HY32Z Insertion of Monitoring Device into Upper Artery, Percutaneous Approach (ICD-10-PCS; principal; 2017-04-30 10:04)
PROC: 4A133B1 Monitoring of Arterial Pressure, Peripheral, Percutaneous Approach (ICD-10-PCS; principal; 2017-04-30 10:04)
PROC: 0D1L0Z4 Bypass Transverse Colon to Cutaneous, Open Approach (ICD-10-PCS; principal; 2017-04-30 10:04)
PROC: 0DBG0ZZ Excision of Left Large Intestine, Open Approach (ICD-10-PCS; principal; 2017-04-30 10:04)
PROC: 4A133J1 Monitoring of Arterial Pulse, Peripheral, Percutaneous Approach (ICD-10-PCS; principal; 2017-04-30 10:04)
PROC: 5A1D00Z (ICD-10-PCS; 2017-05-01)
DX: A41.9 Sepsis, unspecified organism (principal); G93.41 Metabolic encephalopathy; I21.3 ST elevation (STEMI) myocardial infarction of unspecified site; J96.00 Acute respiratory failure, unspecified whether with hypoxia or hypercapnia; N17.0 Acute kidney failure with tubular necrosis; R65.21 Severe sepsis with septic shock; E44.0 Moderate protein-calorie malnutrition; I48.91 Unspecified atrial fibrillation; K57.92 Diverticulitis of intestine, part unspecified, without perforation or abscess without bleeding; Z99.11 Dependence on respirator [ventilator] status; K55.049 Acute infarction of large intestine, extent unspecified; D68.9 Coagulation defect, unspecified; E87.2 Acidosis; I10 Essential (primary) hypertension; E86.0 Dehydration; E03.9 Hypothyroidism, unspecified; E78.5 Hyperlipidemia, unspecified; I25.10 Atherosclerotic heart disease of native coronary artery without angina pectoris; I46.9 Cardiac arrest, cause unspecified; K56.41 Fecal impaction; N83.201 Unspecified ovarian cyst, right side; Z79.02 Long term (current) use of antithrombotics/antiplatelets; Z79.82 Long term (current) use of aspirin; Z79.899 Other long term (current) drug therapy; Z82.49 Family history of ischemic heart disease and other diseases of the circulatory system; Z86.73 Personal history of transient ischemic attack (TIA), and cerebral infarction without residual deficits; Z87.891 Personal history of nicotine dependence; Z88.0 Allergy status to penicillin; Z95.5 Presence of coronary angioplasty implant and graft
CPT/HCPCS: 36415; 51701; 71010; 71020; 74000; 74176; 80048; 80053; 81001; 82271; 82272; 82330; 82378; 82550; 82553; 82607; 82805; 83605; 83735; 83880; 84100; 84443; 84484; 85025; 85027; 85610; 85730; 86304; 87040; 87086; 88307; 88313; 90935; 92950; 93005; 94002; 94003; 94640; 96361; 96365; 96367; 96372; 96375; 96376; 99291